=== PATIENT | female | born 1945 | race Caucasian/White ===

== ENCOUNTER → 2016-05-13 | Outpatient (CLI) | payer MEDICARE ==
[2016-05-13 10:50] LABS: APPEARANCE,URINE CLEAR; BILIRUBIN,URINE NEGATIVE (NEGATIVE); GLUCOSE, URINE NEGATIVE (NEGATIVE); KETONES,URINE NEGATIVE (NEGATIVE); LEUKOCYTE ESTERASE,URINE TRACE (NEGATIVE); NITRITE,URINE NEGATIVE (NEGATIVE); PROTEIN,URINE NEGATIVE (NEGATIVE); URINE SPECIFIC GRAVITY 1.018; UROBILINOGEN,URINE NEGATIVE mg/dL (<2.0)
[2016-05-13 11:01] LABS: ABSOLUTE BASOPHILS # (AUTO) 0.1 10^3/uL (0.0-0.2); ABSOLUTE EOSINOPHILS # (AUTO) 0.2 10^3/uL (0.0-0.6); ABSOLUTE LYMPHOCYTES (AUTO) 1.5 10^3/uL (0.5-4.7); ABSOLUTE MONOCYTES (AUTO) 0.6 10^3/uL (0.1-1.4); ABSOLUTE NEUT (AUTO) 4.1 10^3/uL (1.7-8.2); BASOPHILS % (AUTO) 0.8 % (0-2); EOSINOPHILS % (AUTO) 3.5 % (0-6); HEMOGLOBIN 13.1 g/dL (12.0-15.5); HGB HCT DIFFERENCE -0.7; LYMPHOCYTES % (AUTO) 23.4 % (13-45); MEAN CORPUSCULAR HEMOGLOBIN 29.8 pg (27.0-33.4); MEAN CORPUSCULAR HGB CONC 32.7 g/dL (32.0-36.0); MEAN CORPUSCULAR VOLUME 91 fl (80-97); MONOCYTES % (AUTO) 9.6 % (3-13); RED BLOOD COUNT 4.39 10^6/uL (3.72-5.28); RED CELL DISTRIBUTION WIDTH 14.5 % (11.5-14.0); SEGMENTED NEUTROPHILS % (AUTO) 62.7 % (42-78); WHITE BLOOD COUNT 6.6 10^3/uL (4.0-10.5)
[2016-05-13 11:32] LABS: ALANINE AMINOTRANSFERASE 23 U/L (9-52); ALBUMIN 3.8 g/dL (3.5-5.0); ALKALINE PHOSPHATASE 103 U/L (38-126); ANION GAP 11 (5-19); ASPARTATE AMINO TRANSFERASE 20 U/L (14-36); BILIRUBIN,TOTAL 0.6 mg/dL (0.2-1.3); BLOOD UREA NITROGEN 18 mg/dL (7-20); CALCIUM 9.3 mg/dL (8.4-10.2); CARBON DIOXIDE 27 mmol/L (22-30); CHLORIDE 106 mmol/L (98-107); CHOLESTEROL 164.28 mg/dL (0-200); CREATININE RESULT 0.85 mg/dL (0.52-1.25); Direct HDL 48 mg/dL (>40); GLUCOSE 86 mg/dL (75-110); POTASSIUM 4.7 mmol/L (3.6-5.0); SODIUM 143.7 mmol/L (137-145); TOTAL PROTEIN 6.4 g/dL (6.3-8.2); TRIGLYCERIDES 100 mg/dL (<150)
[2016-05-13 11:44] LABS: DIRECT LDL 87 mg/dL (<100)
== END ==
LOC: OD 09:18
DX: I12.9 Hypertensive chronic kidney disease with stage 1 through stage 4 chronic kidney disease, or unspecified chronic kidney disease (principal); N18.3 Chronic kidney disease, stage 3 (moderate); D63.1 Anemia in chronic kidney disease; D50.9 Iron deficiency anemia, unspecified; Z79.899 Other long term (current) drug therapy; M06.9 Rheumatoid arthritis, unspecified
CPT/HCPCS: 36415; 80053; 80061; 81001; 82607; 82728; 82746; 83036; 83540; 83550; 84443; 85025; 85045

== ENCOUNTER → 2016-05-23 | Outpatient (CLI) | payer MEDICARE | LOC: OD 08:55 → EDSTATUS 05-28 14:45 | PROVIDERS: ATTEND Orthopaedic Surgery | DX: Z01.818 Encounter for other preprocedural examination (principal); I51.7 Cardiomegaly; K44.9 Diaphragmatic hernia without obstruction or gangrene | CPT/HCPCS: 71020 ==

== ENCOUNTER → 2016-06-12 | Day surgery (SDC) | payer MEDICARE ==
[~2016-06-12] MED LIST: LIDOCAINE 2% JELLY 5 ML TUBE ONE
== END ==
LOC: END 08:57
PROVIDERS: ATTEND Internal Medicine Gastroenterology
PROC: 4A0B7BZ Measurement of Gastrointestinal Pressure, Via Natural or Artificial Opening (ICD-10-PCS; principal; 2016-06-12)
DX: K44.9 Diaphragmatic hernia without obstruction or gangrene (principal)
CPT/HCPCS: 91010

== ENCOUNTER → 2016-07-02 | Day surgery (SDC) | payer MEDICARE | LOC: END 15:12 | PROVIDERS: ATTEND Internal Medicine Gastroenterology | PROC: 4A0B78Z Measurement of Gastrointestinal Motility, Via Natural or Artificial Opening (ICD-10-PCS; principal; 2016-07-02) | DX: K21.9 Gastro-esophageal reflux disease without esophagitis (principal) | CPT/HCPCS: 91035 ==

== ENCOUNTER → 2016-07-10 | Outpatient (CLI) | payer MEDICARE | LOC: RAD 09:06 | PROVIDERS: ATTEND Surgery | DX: K21.9 Gastro-esophageal reflux disease without esophagitis (principal); K44.9 Diaphragmatic hernia without obstruction or gangrene | CPT/HCPCS: 74220 ==

== ENCOUNTER → 2016-07-17 | Outpatient (CLI) | payer MEDICARE ==
[~2016-07-17] MED LIST changes: +ALBUTEROL SULFATE 0.083% NEB 2.5 MG/3 ML AMPUL NEB ONE; -LIDOCAINE 2% JELLY 5 ML TUBE ONE
--- NOTE | 2016-07-19 11:51 | PULMONARY FUNCTION TEST ---
DATE OF SERVICE: 07/17/2016 THE VITAL CAPACITY IS MODERATELY DECREASED. THE EXPIRATORY FLOW RATES ARE MODERATELY DECREASED. THE FEV1/VC IS 76%, PREDICTED: 81% LUNG VOLUMES BY NITROGEN WASH OUT METHOD SHOW: TLC IS 58% OF PREDICTED FRC IS 64% OF PREDICTED RV IS 65% OF PREDICTED THE DLCO IS 11.8, 60% OF PREDICTED. THE RV/TLC RATIO IS 45% PREDICTED 40% AFTER BRONCHODILATOR, EXPIRATORY FLOW RATES SHOW NO SIGNIFICANT CHANGE. IMPRESSION: THE INSPIRATORY LIMB OF THE F-V LOOP WAS POORLY PERFORMED. THE EXPIRATORY SPIROGRAM WAS ADEQUATE. THERE IS A MODERATE RESTRICTIVE DEFECT. DIFFUSING CAPACITY IS MODERATELY DECREASED. CC: CAROLINA HERNDON MD > SHABANA
== END ==
LOC: RT 13:45
PROVIDERS: ATTEND Surgery
DX: R06.02 Shortness of breath (principal); K44.9 Diaphragmatic hernia without obstruction or gangrene
CPT/HCPCS: 94729 ×2; 94727 ×2; 94060 ×2; A9270

== ENCOUNTER → 2016-07-18 | Outpatient (CLI) | payer MEDICARE ==
--- NOTE | 2016-07-18 19:27 | XCELERA REPORT ---
[address] [address] Transthoracic Echocardiogram Report Name: THADDEUS PILLAI Age: 71 yrs Gender: Female : 1945 Patient Status: Outpatient Patient Location: Study Date: 07/18/2016 01:59 PM Height: 66 in Weight: 148 lb BSA: 1.8 m2 Procedure: A complete two-dimensional transthoracic echocardiogram was performed (2D, M-mode, spectral and color flow Doppler). The study was technically difficult with many images being suboptimal in quality. Reason For Study: PRE OP Ordering Physician: CAROLINA HERNDON Performed By: Mahogany Matos Interpretation Summary Best estimate LV EF is 45% The study was technically difficult with many images being suboptimal in quality. Left ventricular systolic function is mildly reduced. Doppler measurements suggest pseudonormalized left ventricular relaxation, which is associated with grade II/IV or mild to moderate diastolic dysfunction The left ventricle is grossly normal size. [place] not well visualised, but small apical akinesis is suspected There is mild concentric left ventricular hypertrophy. The right ventricular systolic function is normal. The left atrial size is normal. The right atrium is normal in size There is no mitral valve stenosis. There is a mild amount of mitral regurgitation There is a mild amount of aortic regurgitation There is no aortic valve stenosis There is a mild amount of tricuspid regurgitation Right ventricular systolic pressure is at the upper limits of normal The aortic root is not well visualized but is probably normal size. The inferior vena cava was not visualized There is no pericardial effusion. MMode/2D Measurements \T\ Calculations RVDd: 2.7 cm LVIDd: 5.1 cmFS: 18.5 % Ao root diam: 3.5 cm IVSd: 1.2 cm LVIDs: 4.2 cmEDV(Teich): 123.9 ml LVPWd: 1.2 cmESV(Teich): 76.7 ml Ao root area: 9.8 cm2 EF(Teich): 38.0 % LA dimension: 2.8 cm LVOT diam: 2.5 cm LVOT area: 4.9 cm2 Doppler Measurements \T\ Calculations MV E max saleem: MV P1/2t max saleem: Ao V2 max: AI max saleem: 31.2 cm/sec 31.9 cm/sec 103.2 cm/sec 288.8 cm/sec MV A max saleem: MV P1/2t: 55.9 msec Ao max PG: AI max P.1 cm/sec MVA(P1/2t): 3.9 cm2 4.3 mmHg 33.4 mmHg MV E/A: 0.61 MV dec slope: JERALD(V,D): 3.5 cm2 AI dec slope: 167.2 cm/sec2 130.1 cm/sec2 AI P1/2t: 650.4 msec LV V1 max PG: PA V2 max: PI end-d saleem: TR max saleem: 2.1 mmHg 77.5 cm/sec 88.2 cm/sec 251.9 cm/sec LV V1 max: PA max P.4 mmHg TR max P.0 cm/sec 25.4 mmHg Left Ventricle The left ventricle is grossly normal size. There is mild concentric left ventricular hypertrophy. Left ventricular systolic function is mildly reduced. LV EF is 45%. Doppler measurements suggest pseudonormalized left ventricular relaxation, which is associated with grade II/IV or mild to moderate diastolic dysfunction. There is apical wall akinesis. Right Ventricle The right ventricle is grossly normal size. There is normal right ventricular wall thickness. The right ventricular systolic function is normal. Atria The right atrium is normal in size. The left atrial size is normal. Interarterial septum not well visualized and not well dopplered. Cannot comment on ASD/PFO presence. Mitral Valve The mitral valve leaflets are sclerotic and show some degree of functional abnormality. There is no mitral valve stenosis. There is a mild amount of mitral regurgitation. Aortic Valve The aortic valve is not well visualized secondary to technical limitations. There is no aortic valve stenosis. There is a mild amount of aortic regurgitation. Tricuspid Valve The tricuspid valve is not well visualized secondary to technical limitations. There is no tricuspid stenosis. There is a mild amount of tricuspid regurgitation. Right ventricular systolic pressure is at the upper limits of normal. Pulmonic Valve The pulmonic valve is not well visualized. Great Vessels The aortic root is not well visualized but is probably normal size. The inferior vena cava was not visualized. Effusions There is no pericardial effusion. : CAROLINA HERNDON > Aliyah Brooks
== END ==
LOC: SP 13:44
PROVIDERS: ATTEND Surgery
DX: Z01.810 Encounter for preprocedural cardiovascular examination (principal); K44.9 Diaphragmatic hernia without obstruction or gangrene
CPT/HCPCS: 93306

== ENCOUNTER → 2016-07-23 | Outpatient (CLI) | payer MEDICARE ==
[~2016-07-23] MED LIST changes: -ALBUTEROL SULFATE 0.083% NEB 2.5 MG/3 ML AMPUL NEB ONE; +AMINOPHYLLINE INJ/PF 250 MG/10 ML SDV IV ONE; +REGADENOSON INJ 0.4 MG/5 ML DISP.SYRIN IV ONE
--- NOTE | 2016-07-23 11:47 | DRAGON STRESS TEST REPORT ---
INTRAVENOUS LEXISCAN CARDIOLITE STRESS TEST USING SINGLE PHOTON EMMISION COMPUTERIZED TOMOGRAPHIC. DATE OF PROCEDURE: July 23, 2016 INDICATION : Preop clearance, abnormal EKG RESTING EKG: Sinus rhythm, occasional VPCs, nonspecific T-wave inversion in lateral chest leads. STRESS EKG: No significant changes noted with LexiScan bolus REASON FOR TERMINATION: Protocol. PROCEDURE REPORT: Baseline heart rate 73 beats per minute with blood pressure of 169/87. Patient had no significant complaints. Heart rate at 2 minutes post bolus 116 with a blood pressure of 156/87. 3 minutes post bolus heart rate 118 with blood pressure of 164/88. No significant EKG changes were noted. Patient had no significant complaints during the procedure or postprocedure, patient did complain of shortness of breath and nausea. Patient injected with Aminophyllin 75 mg at 3 minutes or later after Lexiscan bolus. CONCLUSIONS: Normal EKG and hemodynamic response to IV LexiScan. NUCLEAR DATA: At rest the patient was given 10.25 millicuries of technetium 99 sestamibi injected intravenously. As per protocol rest gated SPECT images were obtained. Subsequently the patient was given intravenous LexiScan at a dose of 0.4 mg in 5 mL intravenously, followed by flush with normal saline. Subsequently the stress dose of 31.3 millicuries of technetium 99 sestamibi was injected intravenously. As per protocol stress gated images were obtained. NUCLEAR INTERPRETATION: Both raw and processed data were used for interpretation. Visual, qualitative, computer-generated quantitative data was used. There was patchy inhomogeneous myocardial uptake of technetium compound. Motion artifact and soft tissue attenuations were noted. Increased visceral uptake was noted. Decreased uptake noted in inferior wall and also Creole, these are somewhat more decreased in stress images as compared to rest images, consistent with inferior wall and apical ischemia. Cannot rule out an area of underlying scar in the inferior wall and apex of the left ventricle. Quality of imaging was suboptimal. EKG gated imaging showed LV EF at 31 %, with diffuse hypokinesia, rest and stress gated EF similar visually. T. I D. ratio was 1.10. Lung heart ratio noted to be significantly increased at 0.50. No significant extracardiac and abnormal radiotracer activities were noted. RV free wall uptake was noted to be increased. IMPRESSION: Also refer to comments under nuclear interpretation. Also test results needs to be interpreted in the context of pretest probability. 1. Decreased uptake noted in inferior wall and also LV Creole, these are somewhat more decreased in stress images as compared to rest images, consistent with inferior wall and apical ischemia. Cannot rule out an area of underlying scar in the inferior wall and apex of the left ventricle. Quality of imaging was suboptimal. 2. Significantly Increased lung uptake is noted. Consider intrinsic lung disease but could also be related to LV systolic dysfunction/CHF. 3. EKG gated imaging shows left ejection fraction of approximately 31 % with diffuse hypokinesia. 4. Clinical correlation requested as quality of images felt to be suboptimal. In approximately 10% of the cases Lexiscan may not cause adequate vasodilatory stress. RECOMMENDATIONS: Aggressive risk factor modification, medical therapy. Consider heart catheterization/coronary CTA if clinically indicated. Clinical correlation with echocardiogram derived ejection fraction. Inability to exercise by itself can lead to increased cardiovascular event risks. Consider cardiology consultation and or follow-up if clinically indicated. I AM AVAILABLE FOR CARDIOLOGY CONSULTATION AND FOLLOWUP IF REQUESTED BY PMD Aliyah Brooks M.D., YARELIS Gem Expert supervisor refining, Board certified in cardiovascular diseases, Nuclear cardiology, Echocardiography Cardiac CT and cardiac MRI Ph. [phone] [facility] HOSPITALYuli
== END ==
LOC: RAD 06:33
PROVIDERS: ATTEND Surgery
DX: Z01.810 Encounter for preprocedural cardiovascular examination (principal); R94.31 Abnormal electrocardiogram [ECG] [EKG]; K44.9 Diaphragmatic hernia without obstruction or gangrene
CPT/HCPCS: 93017; 78452; A9500; J2785; J0280; Q9969

== ENCOUNTER → 2016-08-02 | Outpatient (CLI) | payer MEDICARE ==
[2016-08-02 13:02] LABS: ABSOLUTE EOSINOPHILS # (AUTO) 0.2 10^3/uL (0.0-0.6); ABSOLUTE LYMPHOCYTES (AUTO) 1.5 10^3/uL (0.5-4.7); ABSOLUTE MONOCYTES (AUTO) 0.6 10^3/uL (0.1-1.4); ABSOLUTE NEUT (AUTO) 4.5 10^3/uL (1.7-8.2); BASOPHILS % (AUTO) 0.7 % (0-2); EOSINOPHILS % (AUTO) 2.8 % (0-6); HEMATOCRIT 40.5 % (36.0-47.0); HEMOGLOBIN 13.3 g/dL (12.0-15.5); HGB HCT DIFFERENCE -0.6; LYMPHOCYTES % (AUTO) 22.2 % (13-45); MEAN CORPUSCULAR HEMOGLOBIN 30.3 pg (27.0-33.4); MEAN CORPUSCULAR HGB CONC 32.8 g/dL (32.0-36.0); MEAN CORPUSCULAR VOLUME 92 fl (80-97); MONOCYTES % (AUTO) 8.3 % (3-13); RED BLOOD COUNT 4.39 10^6/uL (3.72-5.28); RED CELL DISTRIBUTION WIDTH 13.3 % (11.5-14.0); WHITE BLOOD COUNT 6.8 10^3/uL (4.0-10.5)
[2016-08-02 13:12] LABS: PROTHROMBIN TIME 13.9 SEC (11.4-15.4)
[2016-08-02 13:13] LABS: PARTIAL THROMBOPLASTIN TIME 28.1 SEC (23.5-35.8)
[2016-08-02 13:32] LABS: ANION GAP 7 (5-19); BLOOD UREA NITROGEN 21 mg/dL (7-20); CARBON DIOXIDE 29 mmol/L (22-30); CHLORIDE 106 mmol/L (98-107); GLUCOSE 99 mg/dL (75-110); POTASSIUM 4.5 mmol/L (3.6-5.0); SODIUM 142.3 mmol/L (137-145)
== END ==
LOC: OD 11:48
PROVIDERS: ATTEND Internal Medicine
DX: Z01.810 Encounter for preprocedural cardiovascular examination (principal); R94.31 Abnormal electrocardiogram [ECG] [EKG]; I10 Essential (primary) hypertension; M15.9 Polyosteoarthritis, unspecified; N19 Unspecified kidney failure; I35.1 Nonrheumatic aortic (valve) insufficiency; E78.5 Hyperlipidemia, unspecified; Z79.899 Other long term (current) drug therapy
CPT/HCPCS: 36415; 80051; 82565; 82947; 83735; 84520; 85025; 85610; 85730

== ENCOUNTER 2016-10-05 14:40 | Emergency (ER) | payer MEDICARE ==
--- NOTE | 2016-10-05 15:12 | ER Document Report ---
ED GI/ - General Mode of Arrival: Wheelchair Information source: Patient TRAVEL OUTSIDE OF THE [place] IN LAST 30 DAYS: No - HPI Patient complains to provider of: Other - hematemesis Onset: This morning - Refer to HPI Notes Associated symptoms: Coffee ground emesis, Vomiting Similar symptoms previously: No Recently seen / treated by doctor: No <PAGE BURKETT - Last Filed: 10/05/16 15:57> <MARK KHALIL - Last Filed: 10/05/16 22:07> - General Stated Complaint: COUGH Time Seen by Provider: 10/05/16 14:49 Notes: Patient is a 71 year old female presenting to the ED for hematemesis. Patient states her symptoms started this morning around 06:30 and has progressively gotten worse throughout the day. Patient recently had a hiatal hernia repair on 09/30/16 at [facility] in [place]. Patient states she has not had a bowel movement since her surgery until this morning which she states she had a very small bowel movement. Patient has been taking oxycodone every 4 hours since her surgery which could be causing constipation. Patient also complains of feeling woozy when getting up to walk; patient ambulates with a walker. Patient has a history of RA and GERD. [facility] (PAGE BURKETT) - Related Data Allergies/Adverse Reactions: sulfamethoxazole [From Bactrim] Allergy (Verified 10/05/16 16:01) Vomiting trimethoprim [From Bactrim] Allergy (Verified 10/05/16 16:01) Vomiting codeine phosphate [From Tylenol-Codeine] Adverse Reaction (Severe, Verified 16:01) Hallucinations Past Medical History - General Information source: Patient - Social History Smoking Status: Never Smoker Cigarette use (# per day): No Chew tobacco use (# tins/day): No Smoking Education Provided: No Frequency of alcohol use: None Drug Abuse: None Family History: None Patient has suicidal ideation: No Patient has homicidal ideation: No - Past Medical History Cardiac Medical History: Reports: Hx Hypertension - r/t meds taken, not currently taking meds Pulmonary Medical History: Reports: Hx Bronchitis Neurological Medical History: Renal/ Medical History: Reports: Hx End Stage Renal Disease - had been as low as 20% function r/t meds, Hx Ovarian Cysts - 1999 GI Medical History: Reports: Hx Gastroesophageal Reflux Disease Musculoskeltal Medical History: Reports Hx Arthritis, Reports Hx Musculoskeletal Trauma Traumatic Medical History: Reports: Hx Fractures - 2015 left humerus,rt arm 2007 ,ribs fx 2000 Past Surgical History: Reports: Hx Orthopedic Surgery - foot, knee, Lshoulder replacment 05/2015 - Immunizations Hx Diphtheria, Pertussis, Tetanus Vaccination: Yes Hx Pneumococcal Vaccination: 12/09/15 <PAGE BURKETT - Last Filed: 10/05/16 15:57> Review of Systems - Review of Systems Constitutional: No symptoms reported EENT: No symptoms reported Cardiovascular: See HPI, Lightheaded - woozy Respiratory: No symptoms reported Gastrointestinal: See HPI, Other - hematemesis Genitourinary: No symptoms reported Female Genitourinary: No symptoms reported Musculoskeletal: No symptoms reported Skin: No symptoms reported Hematologic/Lymphatic: No symptoms reported Neurological/Psychological: No symptoms reported -: Yes All other systems reviewed and negative <KWADWOPAGE - Last Filed: 10/05/16 15:57> Physical Exam <KWADWOPAGE - Last Filed: 10/05/16 15:57> <MARK KHALIL - Last Filed: 10/05/16 22:07> - Vital signs Vitals: Resp BP Pulse Ox 18 118/81 95 10/05/16 15:24 10/05/16 15:24 10/05/16 15:24 - Notes Notes: GENERAL: Alert, interacts well. Mild distress. HEAD: Normocephalic, atraumatic. EYES: Appear normal. Pupils equal, round, and reactive to light. ENT: Moist mucus membranes, tongue midline. NECK: Full range of motion. Supple. Trachea midline. LUNGS: Clear to auscultation bilaterally, no wheezes, rales, or rhonchi. No respiratory distress. HEART: Regular rate and rhythm. No murmurs, gallops, or rubs. ABDOMEN: Soft, non-tender. Non-distended. Normal bowel sounds. RECTAL: No gross blood, no sign of hemorrhoids, non-tender. EXTREMITIES: Moves all 4 extremities spontaneously. Normal strength. No edema. Radial pulses 2/4 bilaterally. NEUROLOGICAL: Alert and oriented x3. Normal speech. No focal neurological deficits. GSC 15. PSYCH: Normal affect, normal mood. SKIN: Warm, dry, normal turgor. No rashes or lesions noted. (PAGE BURKETT) Course - Laboratory Result Diagrams: 10/05/16 15:15 10/05/16 15:15 <PAGE BURKETT - Last Filed: 10/05/16 15:57> - Laboratory Result Diagrams: 10/05/16 18:38 10/05/16 15:15 - EKG Interpretation by Me EKG shows normal: Sinus rhythm, Joes, Intervals, QRS Complexes, ST-T Waves Rate: Normal - 93 Rhythm: NSR Joes/QRS: Left axis deviation Voltage: Consistant with LVH When compared to previous EKG there are: No significant change - Consults Dr. Arceo Time consulted: 19:25 Consulted provider: other - Will accept in transfer at [facility] <MARK KHALIL - Last Filed: 10/05/16 22:07> - Re-evaluation Re-evalutation: 10/05/16 19:33 The patient's hemoglobin was 13.3 on 08/02/2016, and 12.5 about 3 PM today. A repeat hemoglobin at 6:30 PM was 11.3 (MARK KHALIL) - Vital Signs Vital signs: Temp Pulse Resp BP Pulse Ox 19 141/56 H 94 10/05/16 20:16 10/05/16 20:16 10/05/16 20:16 - Laboratory Laboratory results interpreted by me: 10/05/16 10/05/16 10/05/16 15:15 15:15 18:38 WBC 14.4 H 13.8 H RBC 3.59 L Hgb 11.3 L Hct 34.4 L RDW 14.5 H 14.6 H Seg Neutrophils % 82.4 H 83.0 H Lymphocytes % 8.9 L 8.4 L Absolute Neutrophils 11.9 H 11.5 H Potassium 3.4 L BUN 37 H ALT 70 H Creatine Kinase 22 L Total Protein 5.4 L Albumin 2.8 L Urine Urobilinogen 10/05/16 19:17 WBC RBC Hgb Hct RDW Seg Neutrophils % Lymphocytes % Absolute Neutrophils Potassium BUN ALT Creatine Kinase Total Protein Albumin Urine Urobilinogen 2.0 H Discharge <PAGE BURKETT - Last Filed: 10/05/16 15:57> <MARK KHALIL - Last Filed: 10/05/16 22:07> - Discharge Clinical Impression: Hematemesis/vomiting blood Qualifiers: Nausea presence: unspecified Qualified Code(s): K92.0 - Hematemesis Condition: Stable Disposition: [facility] Referrals: DEXTER JOHNSON MD [Primary Care Provider] - Follow up as needed Scribe Attestation: 10/05/16 22:07 I personally performed the services described in the documentation, reviewed and edited the documentation which was dictated to the scribe in my presence, and it accurately records my words and actions. (MARK KHALIL) Scribe Documentation - Scribe Written by Scribtalib:: Saqib Howell 10/05/16 16:11 acting as scribe for :: Luna <PAGE BURKETT - Last Filed: 10/05/16 15:57>
[2016-10-05 15:32] LABS: ABSOLUTE EOSINOPHILS # (AUTO) 0.2 10^3/uL (0.0-0.6); ABSOLUTE LYMPHOCYTES (AUTO) 1.3 10^3/uL (0.5-4.7); ABSOLUTE NEUT (AUTO) 11.9 10^3/uL (1.7-8.2); BASOPHILS % (AUTO) 0.2 % (0-2); EOSINOPHILS % (AUTO) 1.4 % (0-6); HEMATOCRIT 37.7 % (36.0-47.0); HEMOGLOBIN 12.5 g/dL (12.0-15.5); HGB HCT DIFFERENCE -0.2; LYMPHOCYTES % (AUTO) 8.9 % (13-45); MEAN CORPUSCULAR HEMOGLOBIN 31.7 pg (27.0-33.4); MEAN CORPUSCULAR HGB CONC 33.2 g/dL (32.0-36.0); MEAN CORPUSCULAR VOLUME 96 fl (80-97); MONOCYTES % (AUTO) 7.1 % (3-13); RED BLOOD COUNT 3.94 10^6/uL (3.72-5.28); RED CELL DISTRIBUTION WIDTH 14.5 % (11.5-14.0); SEGMENTED NEUTROPHILS % (AUTO) 82.4 % (42-78); WHITE BLOOD COUNT 14.4 10^3/uL (4.0-10.5)
[2016-10-05 15:47] LABS: ALANINE AMINOTRANSFERASE 70 U/L (9-52); ALBUMIN 2.8 g/dL (3.5-5.0); ALKALINE PHOSPHATASE 68 U/L (38-126); ANION GAP 7 (5-19); ASPARTATE AMINO TRANSFERASE 17 U/L (14-36); BILIRUBIN,DIRECT 0.2 mg/dL (0.0-0.4); BILIRUBIN,TOTAL 0.6 mg/dL (0.2-1.3); BLOOD UREA NITROGEN 37 mg/dL (7-20); CALCIUM 8.4 mg/dL (8.4-10.2); CARBON DIOXIDE 29 mmol/L (22-30); CHLORIDE 107 mmol/L (98-107); CREATINE KINASE 22 U/L (30-135); CREATININE RESULT 0.88 mg/dL (0.52-1.25); GLUCOSE 100 mg/dL (75-110); LIPASE 177.1 U/L (23-300); POTASSIUM 3.4 mmol/L (3.6-5.0); SODIUM 143.1 mmol/L (137-145); TOTAL PROTEIN 5.4 g/dL (6.3-8.2)
[2016-10-05 15:57] LABS: CREATINE KINASE MB 1.57 ng/mL (<4.55)
[2016-10-05 15:58] LABS: TROPONIN I < 0.012 ng/mL
[2016-10-05] MEDS ORDERED: NORMAL SALINE 1000 ML 1,000 ML IV ONE (16:43)
[2016-10-05 18:56] LABS: ABSOLUTE EOSINOPHILS # (AUTO) 0.2 10^3/uL (0.0-0.6); ABSOLUTE LYMPHOCYTES (AUTO) 1.2 10^3/uL (0.5-4.7); ABSOLUTE NEUT (AUTO) 11.5 10^3/uL (1.7-8.2); BASOPHILS % (AUTO) 0.2 % (0-2); EOSINOPHILS % (AUTO) 1.5 % (0-6); HEMATOCRIT 34.4 % (36.0-47.0); HEMOGLOBIN 11.3 g/dL (12.0-15.5); HGB HCT DIFFERENCE -0.5; LYMPHOCYTES % (AUTO) 8.4 % (13-45); MEAN CORPUSCULAR HEMOGLOBIN 31.4 pg (27.0-33.4); MEAN CORPUSCULAR HGB CONC 32.8 g/dL (32.0-36.0); MEAN CORPUSCULAR VOLUME 96 fl (80-97); MONOCYTES % (AUTO) 6.9 % (3-13); RED BLOOD COUNT 3.59 10^6/uL (3.72-5.28); RED CELL DISTRIBUTION WIDTH 14.6 % (11.5-14.0); WHITE BLOOD COUNT 13.8 10^3/uL (4.0-10.5)
[2016-10-05 19:51] LABS: APPEARANCE,URINE CLEAR; BILIRUBIN,URINE NEGATIVE (NEGATIVE); GLUCOSE, URINE NEGATIVE (NEGATIVE); KETONES,URINE NEGATIVE (NEGATIVE); LEUKOCYTE ESTERASE,URINE NEGATIVE (NEGATIVE); NITRITE,URINE NEGATIVE (NEGATIVE); PROTEIN,URINE NEGATIVE (NEGATIVE)
[2016-10-05 20:16] VITALS: BP 141/56
--- NOTE | 2016-10-06 11:14 | EKG REPORT ---
SEVERITY:- ABNORMAL ECG - SINUS RHYTHM LEFT AXIS DEVIATION LEFT VENTRICULAR HYPERTROPHY : Confirmed by: Jesica Salter MD 06-Oct-2016 11:13:41
== END 2016-10-05 20:19 | disposition short-term general hospital (02) ==
LOC: ER 14:40
DX: K92.0 Hematemesis (principal); R05 Cough; Z79.899 Other long term (current) drug therapy
CPT/HCPCS: 93005; 99285; 86900; 86901; 36415; 82553; 86850; 82550; 83690; 85025; 82272; 80053; 81001; 84484; 93010; J7030

== ENCOUNTER → 2017-03-31 | Outpatient (CLI) | payer MEDICARE ==
[2017-03-31 13:13] LABS: APPEARANCE,URINE CLEAR; BILIRUBIN,URINE NEGATIVE (NEGATIVE); COLOR,URINE YELLOW; GLUCOSE, URINE NEGATIVE (NEGATIVE); KETONES,URINE NEGATIVE (NEGATIVE); LEUKOCYTE ESTERASE,URINE MODERATE (NEGATIVE); NITRITE,URINE NEGATIVE (NEGATIVE); PROTEIN,URINE NEGATIVE (NEGATIVE); URINE SPECIFIC GRAVITY 1.023; UROBILINOGEN,URINE NEGATIVE mg/dL (<2.0)
[2017-03-31 13:17] LABS: ABSOLUTE EOSINOPHILS # (AUTO) 0.1 10^3/uL (0.0-0.6); ABSOLUTE MONOCYTES (AUTO) 0.5 10^3/uL (0.1-1.4); ABSOLUTE NEUT (AUTO) 9.8 10^3/uL (1.7-8.2); BASOPHILS % (AUTO) 0.4 % (0-2); HEMATOCRIT 42.7 % (36.0-47.0); LYMPHOCYTES % (AUTO) 8.8 % (13-45); MEAN CORPUSCULAR HEMOGLOBIN 30.1 pg (27.0-33.4); MEAN CORPUSCULAR HGB CONC 32.9 g/dL (32.0-36.0); MEAN CORPUSCULAR VOLUME 92 fl (80-97); MONOCYTES % (AUTO) 4.7 % (3-13); PLATELET COUNT 210 10^3/uL (150-450); RED BLOOD COUNT 4.66 10^6/uL (3.72-5.28); RED CELL DISTRIBUTION WIDTH 14.8 % (11.5-14.0); SEGMENTED NEUTROPHILS % (AUTO) 85.1 % (42-78); TOTAL CELLS COUNTED % (AUTO) 100 %; WHITE BLOOD COUNT 11.5 10^3/uL (4.0-10.5)
[2017-03-31 13:42] LABS: ANION GAP 6 (5-19); BLOOD UREA NITROGEN 24 mg/dL (7-20); CALCIUM 9.6 mg/dL (8.4-10.2); CARBON DIOXIDE 29 mmol/L (22-30); CHLORIDE 107 mmol/L (98-107); GLUCOSE 86 mg/dL (75-110); POTASSIUM 4.6 mmol/L (3.6-5.0); SODIUM 141.7 mmol/L (137-145)
--- NOTE | 2017-03-31 14:45 | RADIOLOGY REPORT (SQ) ---
EXAM DESCRIPTION: CHEST PA/LATERAL COMPLETED DATE/TIME: 03/31/2017 1:02 pm REASON FOR STUDY: PRE-OP COMPARISON: Chest films 04/21/2015, 10/15/2015, 05/23/2016 EXAM PARAMETERS: NUMBER OF VIEWS: two views TECHNIQUE: Digital Frontal and Lateral radiographic views of the chest acquired. RADIATION DOSE: NA LIMITATIONS: none FINDINGS: LUNGS AND PLEURA: No opacities, masses or pneumothorax. No pleural effusion. MEDIASTINUM AND HILAR STRUCTURES: No masses or contour abnormalities. HEART AND VASCULAR STRUCTURES: Heart normal size. No evidence for failure. BONES: Osteopenic. Old healed right rib fractures. Left shoulder replacement HARDWARE: Surgical clips and prosthesis at the GE junction OTHER: No other significant finding. IMPRESSION: NO SIGNIFICANT RADIOGRAPHIC FINDING IN THE CHEST. TECHNICAL DOCUMENTATION: JOB ID: [id number] [employer]- All Rights Reserved
--- NOTE | 2017-03-31 23:32 | EKG REPORT ---
SEVERITY:- ABNORMAL ECG - SINUS RHYTHM LOW VOLTAGE IN FRONTAL LEADS PROBABLE LVH WITH SECONDARY REPOL ABNRM ABNORMAL T, PROBABLE ISCHEMIA, ANT-LAT LEADS : Confirmed by: Aliyah Brooks 31-Mar-2017 23:31:55
== END ==
LOC: OD 11:56
PROVIDERS: ATTEND Orthopaedic Surgery
DX: Z01.818 Encounter for other preprocedural examination (principal); N39.0 Urinary tract infection, site not specified
CPT/HCPCS: 36415; 71046; 80048; 81001; 85025; 87086; 93005; 93010

== ENCOUNTER 2017-04-24 05:32 | Inpatient (IN) | payer MEDICARE ==
[~2017-04-24 05:32] MED LIST changes: -AMINOPHYLLINE INJ/PF 250 MG/10 ML SDV IV ONE; +CEFAZOLIN 2 GM/D5W RTU 2 GM/50 ML RTUPB IV PRN; +LACTATED RINGERS 1000 ML IV PRN; +LIDOCAINE 0.5% INJ-PF (5 MG/ML) 50 ML SDV SUBCUT PRN; -REGADENOSON INJ 0.4 MG/5 ML DISP.SYRIN IV ONE
[2017-04-24] MEDS ORDERED: THROMBIN (BOVINE) 5000 UNIT EPITAXIS KIT ONE (06:53)
[2017-04-24] MEDS ORDERED: BUPIVACAINE INJ/PF LIPOSOME/PF 266 MG/20 ML SDV ONE (06:53)
[2017-04-24] MEDS ORDERED: THROMBIN (BOVINE) TOPICAL 20000 UNIT VIAL ONE (06:53)
[2017-04-24] MEDS ORDERED: DEXAMETHASONE SOD PHOSPHATE INJ 4 MG/1 ML VIAL ONE (07:22)
[2017-04-24] MEDS ORDERED: ONDANSETRON HCL INJ/PF 4 MG/2 ML SDV ONE (07:22)
[2017-04-24] MEDS ORDERED: MIDAZOLAM 2 MG/2 ML INJ ONE (07:22)
[2017-04-24] MEDS ORDERED: FENTANYL CITRATE INJ/PF 100 MCG/2 ML AMPUL ONE ×2 (07:22→10:53)
[2017-04-24] MEDS ORDERED: KETAMINE HCL INJ 500 MG/10 ML VIAL ONE (07:22)
[2017-04-24] MEDS ORDERED: PROPOFOL INJ 200 MG/20 ML VIAL IV ONE (07:22)
[2017-04-24] MEDS ORDERED: EPHEDRINE SULFATE INJ 50 MG/1 ML AMPULE ONE (07:23)
[2017-04-24] MEDS ORDERED: TRANEXAMIC ACID INJ/PF 1,000 MG/10 ML SDV IV ONE ×2 (07:23→11:00)
[2017-04-24] MEDS ORDERED: IBUPROFEN 800 MG in NORMAL SALINE 250 ML IV PRN (07:37)
[2017-04-24] MEDS ORDERED: LANSOPRAZOLE 15 MG TAB.RAP.DR PO PRN (08:08)
[2017-04-24] MEDS ORDERED: FENTANYL CITRATE INJ/PF 100 MCG/2 ML AMPUL IV PRN ×3 (09:32)
[2017-04-24] MEDS ORDERED: MEPERIDINE HCL/PF INJ 25 MG/1 ML DISP.SYRIN IV PRN (09:32)
[2017-04-24] MEDS ORDERED: DIPHENHYDRAMINE HCL 50 MG/ML VIAL IV PRN (09:32)
[2017-04-24] MEDS ORDERED: PROMETHAZINE HCL INJ 25 MG/1 ML VIAL IV PRN ×2 (09:32)
[2017-04-24] MEDS ORDERED: RINGERS SOLUTION,LACTATED 1,000 ML IV PRN (10:36)
[2017-04-24] MEDS ORDERED: ACETAMINOPHEN 325 MG TABLET PO PRN (10:36)
--- NOTE | 2017-04-24 10:36 | Operative Report ---
Operative Report DATE OF SURGERY: 04/24/17 PREOPERATIVE DIAGNOSIS: Left knee osteoarthritis POSTOPERATIVE DIAGNOSIS: Same OPERATION: Left total knee arthroplasty SURGEON: SINGH HOLLIS ANESTHESIA: GA TISSUE REMOVED OR ALTERED: None COMPLICATIONS: None ESTIMATED BLOOD LOSS: 50mL INTRAOPERATIVE FINDINGS: As above PROCEDURE: Patient received preoperative antibiotics in the holding area and then was transferred to the OR where she was induced and intubated in supine position. A thigh tourniquet was applied to the left lower extremity. Timeout was done identifying the left knee is a correct site after prepping and draping the left lower extremity. Esmarch was used to exsanguinate the extremity and the tourniquet was inflated at 300 mmHg. The extremity was placed in the leg lincoln and a midline incision was done over the left knee. Then a standard medial parapatellar approach was done to the knee exposing the knee. The patella was everted and I proceeded then to do a medial release. I then proceeded to remove portions of the medial lateral meniscus and then flexed the knee and dislocated knee. I used a drill to prepare my hole and then placed my intramedullary guide and the tibia. I placed a guide and then pinned it after making sure I was taking to off of the lateral compartment which was the worn side. I did my distal tibial cut and was satisfied. This was removed and then I proceeded to do my distal femoral cut by drilling and placing intramedullary the guide and pinning the cutting guide. I took 8 mm off of the femur. I then proceeded to size it to be a 6 and then pinned it with the epicondyle axis. I placed the #6 4-in-1 cutting guide and then proceeded to do my cuts. I then used a box storage worker and did my box cut. I sized the femur and placed a soft a 6 tray with a 9 mm spacer and did a quick trial showing good extension and stable to varus and valgus. I removed the trial components and proceeded to do my patellar cut and using the guide I was able to remove 10 mm. I drilled the peg holes and then prepared the tibial side for implantation using the keel punch. After copious irrigation with pulsatile lavage and then proceeded to cement the components then first during my tibial tray followed by the femoral component and finally the patella button. I placed a 9 mm trial spacer in between and kept the knee in extension. Once the excess cement was removed and the cement had hardened I then proceeded to use Exparel to inject in the soft tissue. I at this point proceeded to close my capsule using #1 Vicryl and the port thrombin into the joint. I then used a intercept to clean the wound. My teacher's assistant then proceeded to close the wound with 0 Vicryl and then I did a 4-0 subcuticular Monocryl stitch. Steri-Strips and Dermabond was applied and then covered with an OpSite dressing. Tourniquet was let down and then the patient was undraped and extubated and sent to PACU in a stable condition.
--- NOTE | 2017-04-24 11:27 | RADIOLOGY REPORT (SQ) ---
EXAM DESCRIPTION: KNEE LEFT 2 VIEWS COMPLETED DATE/TIME: 04/24/2017 11:20 am REASON FOR STUDY: LEFT TOTAL KNEE ARTHROPLASTY M17.12 UNILATERAL PRIMARY OSTEOARTHRITIS, LEFT KNEE COMPARISON: None. NUMBER OF VIEWS: 2 view(s). TECHNIQUE: Digital radiographic images of the left knee post-procedure. LIMITATIONS: None. FINDINGS: BONES: No worrisome or unexpected findings post-procedure. DEVICE: Patient is status post left total knee replacement. The prosthesis appears well seated in th e distal femur and proximal tibia in the projections obtained SOFT TISSUES: No worrisome findings. Expected postoperative soft tissue changes. IMPRESSION: SATISFACTORY POSTOPERATIVE LEFT KNEE. TECHNICAL DOCUMENTATION: JOB ID: [id number] [employer]- All Rights Reserved
[2017-04-24] MEDS: CEFAZOLIN 2 GM/D5W RTU 2 GM/50 ML RTUPB IV SCH ×3 (13:12→23:28)
[2017-04-24] MEDS: ONDANSETRON HCL INJ/PF 4 MG/2 ML SDV IV PRN ×2 (15:29→23:30)
[2017-04-24] MEDS ORDERED: OXYCODONE HCL IR 5 MG TABLET PO PRN (17:01)
[2017-04-24] MEDS: OXYCODONE HCL IR 5 MG TABLET PO PRN ×2 (17:17→21:29)
[2017-04-24] MEDS: SUCRALFATE SUSP 1 GM/10 ML UDCUP PO SCH (21:29)
[2017-04-24] MEDS: RIVAROXABAN 10 MG TABLET PO SCH (21:29)
[2017-04-24] MEDS: METOCLOPRAMIDE HCL ORAL SOLN 10 MG/10 ML UDCUP PO SCH (21:31)
[2017-04-24] MEDS ORDERED: VANCOMYCIN HCL 1,000 MG in DEXTROSE 5%-WATER 250 ML IV ONE (22:36)
[2017-04-24] MEDS ORDERED: HYDROMORPHONE HCL INJ/PF 2 MG/ML AMPULE ONE (23:23)
[2017-04-25] MEDS: OXYCODONE HCL IR 5 MG TABLET PO PRN ×4 (04:48→19:59)
[2017-04-25] MEDS: LANSOPRAZOLE 15 MG TAB.RAP.DR PO SCH (05:16)
[2017-04-25] MEDS: CEFAZOLIN 2 GM/D5W RTU 2 GM/50 ML RTUPB IV SCH ×4 (05:16→23:21)
[2017-04-25 06:26] LABS: HEMATOCRIT 33.4 % (36.0-47.0); MEAN CORPUSCULAR HEMOGLOBIN 30.4 pg (27.0-33.4); MEAN CORPUSCULAR HGB CONC 32.9 g/dL (32.0-36.0); MEAN CORPUSCULAR VOLUME 92 fl (80-97); PLATELET COUNT 142 10^3/uL (150-450); RED BLOOD COUNT 3.62 10^6/uL (3.72-5.28); WHITE BLOOD COUNT 13.7 10^3/uL (4.0-10.5)
[2017-04-25 06:42] LABS: ANION GAP 8 (5-19); BLOOD UREA NITROGEN 21 mg/dL (7-20); CALCIUM 8.9 mg/dL (8.4-10.2); CARBON DIOXIDE 26 mmol/L (22-30); CHLORIDE 107 mmol/L (98-107); GLUCOSE 109 mg/dL (75-110); POTASSIUM 4.2 mmol/L (3.6-5.0); SODIUM 140.7 mmol/L (137-145)
[2017-04-25] MEDS: HYDROMORPHONE HCL INJ/PF 2 MG/ML AMPULE IV PRN ×2 (07:25→15:10)
[2017-04-25] MEDS: SUCRALFATE SUSP 1 GM/10 ML UDCUP PO SCH ×4 (07:25→23:19)
[2017-04-25] MEDS: METOCLOPRAMIDE HCL ORAL SOLN 10 MG/10 ML UDCUP PO SCH ×4 (07:25→23:19)
[2017-04-25] MEDS: ONDANSETRON HCL INJ/PF 4 MG/2 ML SDV IV PRN ×2 (07:26→15:15)
[2017-04-25] MEDS: METOPROLOL SUCCINATE 25 MG TAB.SR.24H PO SCH (09:17)
[2017-04-25] MEDS: PREDNISONE 5 MG TABLET PO SCH (09:17)
[2017-04-25] MEDS: PRENATAL VITAMIN W DHA CAPSULE PO SCH (09:17)
--- NOTE | 2017-04-25 15:45 | PDOC PROGRESS REPORT ---
Subjective Progress Note for:: 04/25/17 Subjective:: Patient complaining of nausea and pain 5 out of 5 of her left knee status post left total knee arthroplasty. Reason For Visit: STATUS POST LEFT TOTAL KNEE ARTHROPLASTY Physical Exam Vital Signs: Temp Pulse Resp BP Pulse Ox 36.7 C 107 H 16 110/61 93 04/25/17 11:37 04/25/17 11:37 04/25/17 11:37 04/25/17 11:37 04/25/17 11:37 Intake & Output 04/24/17 04/25/17 04/26/17 06:59 06:59 06:59 Intake Total 0 3298 Output Total 1930 Balance 0 1368 Weight 78.5 kg Adult Front & Back Image: 1 - Dressing is dry clean and intact. Ecchymosis and swelling present. Soft cast with no tenderness. Vascular intact distally. Results Laboratory Results: 04/25/17 05:08 04/25/17 05:08 04/25/17 04/25/17 05:08 05:08 WBC 13.7 H RBC 3.62 L Hgb 11.0 L Hct 33.4 L MCV 92 MCH 30.4 MCHC 32.9 RDW 14.0 Plt Count 142 L Sodium 140.7 Potassium 4.2 Chloride 107 Carbon Dioxide 26 Anion Gap 8 BUN 21 H Creatinine 0.91 Est GFR ( Amer) > 60 Est GFR (Non-Af Amer) > 60 Glucose 109 Calcium 8.9 Impressions: Knee X-Ray 04/24/17 00:00 IMPRESSION: SATISFACTORY POSTOPERATIVE LEFT KNEE. Status: Image reviewed by me Assessment & Plan - Plan Summary Plan Summary: 71-year-old female postop day 1 from left total knee arthroplasty. Patient requires assistance in the minimal with physical therapy. Requiring IV narcotics to control her pain. Patient will most likely require rehab placement and will stay over the weekend. We will try to wean off of the IV narcotics in the next couple days. Continue physical therapy and DVT prophylaxis
[2017-04-25] MEDS: RIVAROXABAN 10 MG TABLET PO SCH (23:20)
[2017-04-26] MEDS: OXYCODONE HCL IR 5 MG TABLET PO PRN ×5 (00:22→22:08)
[2017-04-26] MEDS: LANSOPRAZOLE 15 MG TAB.RAP.DR PO SCH (05:21)
[2017-04-26] MEDS: CEFAZOLIN 2 GM/D5W RTU 2 GM/50 ML RTUPB IV SCH ×4 (05:21→23:22)
[2017-04-26] MEDS: SUCRALFATE SUSP 1 GM/10 ML UDCUP PO SCH ×4 (08:12→22:08)
[2017-04-26] MEDS: METOCLOPRAMIDE HCL ORAL SOLN 10 MG/10 ML UDCUP PO SCH ×4 (08:12→22:08)
[2017-04-26 08:16] LABS: HEMATOCRIT 30.6 % (36.0-47.0); MEAN CORPUSCULAR HEMOGLOBIN 30.4 pg (27.0-33.4); MEAN CORPUSCULAR HGB CONC 32.8 g/dL (32.0-36.0); MEAN CORPUSCULAR VOLUME 93 fl (80-97); PLATELET COUNT 122 10^3/uL (150-450); RED CELL DISTRIBUTION WIDTH 13.9 % (11.5-14.0); WHITE BLOOD COUNT 16.5 10^3/uL (4.0-10.5)
[2017-04-26] MEDS: PREDNISONE 5 MG TABLET PO SCH (10:00)
[2017-04-26] MEDS: METOPROLOL SUCCINATE 25 MG TAB.SR.24H PO SCH (10:00)
[2017-04-26] MEDS: PRENATAL VITAMIN W DHA CAPSULE PO SCH (10:00)
[2017-04-26] MEDS: HYDROMORPHONE HCL INJ/PF 2 MG/ML AMPULE IV PRN (12:10)
[2017-04-26] MEDS: ONDANSETRON HCL INJ/PF 4 MG/2 ML SDV IV PRN (12:13)
[2017-04-26 13:43] LABS: CREATINE KINASE MB 2.28 ng/mL (<4.55); TROPONIN I 0.016 ng/mL
--- NOTE | 2017-04-26 14:41 | PDOC PROGRESS REPORT ---
Subjective Progress Note for:: 04/26/17 Subjective:: Patient currently lying in bed comfortably. She states the pain in her knee is improved after Dilaudid but was having complaints of chest pain. She does have history of previous hiatal hernia and is not sure if this is similar discomfort. It has subsided after Dilaudid. Denies shortness of breath. Reason For Visit: STATUS POST LEFT TOTAL KNEE ARTHROPLASTY Physical Exam Vital Signs: Temp Pulse Resp BP Pulse Ox 98.4 F 96 16 118/59 L 94 04/26/17 11:28 04/26/17 11:28 04/26/17 11:28 04/26/17 11:28 04/26/17 11:28 Intake & Output 04/25/17 04/26/17 04/27/17 06:59 06:59 06:59 Intake Total 3298 991 Output Total 1930 700 Balance 1368 291 Weight 78.5 kg Musculoskeletal exam: PRESENT: other - Left knee: Dressing clean/dry/intact no erythema or drainage. No calf tenderness. Intact plantar flexion/dorsiflexion. Results Laboratory Results: 04/26/17 05:46 04/25/17 05:08 04/26/17 05:46 WBC 16.5 H RBC 3.30 L Hgb 10.0 L Hct 30.6 L MCV 93 MCH 30.4 MCHC 32.8 RDW 13.9 Plt Count 122 L 04/26/17 04/26/17 13:02 13:02 Creatine Kinase 68 CK-MB (CK-2) 2.28 Troponin I 0.016 Impressions: Knee X-Ray 04/24/17 00:00 IMPRESSION: SATISFACTORY POSTOPERATIVE LEFT KNEE. Assessment & Plan - Diagnosis (1) History of total left knee replacement Is this a current diagnosis for this admission?: Yes Plan: Status post left total knee arthroplasty. #1 physical therapy #2 pain control #3 Xarelto for DVT prophylaxis #4 [facility] #5 new onset chest pain. I have recommended consultation to the hospitalist for further evaluation patients chest pain to ensure troponins and EKG have been ordered. It is not cardiac in etiology appreciate hospitalist consultation.
--- NOTE | 2017-04-26 19:21 | PDOC H&P ---
History of Present Illness Admission Date/PCP: 04/24/17 05:32 DAYANA RICE, This is a 71 year old woman with osteoarthritis and RA who was admitted for elective left knee replacement. She has been recovering slowly and then developed some right sided chest pressure this afternoon that resolved with opioid pain med for the knee pain. No pain recurrence. There was no radiation of the pain, no associated shortness of breath, no abd pain or nausea or dyspepsia, no anxiety. She has never had pressure like this before, does not think she has had an PA in the past. She now feels back to normal. History of Present Illness: THADDEUS PILLAI is a 71 year old female Past Medical History Past Medical History: In addition to those things marked below patient has a history of urinary tract infection, mild COPD Cardiac Medical History: Reports: Hypertension - r/t meds taken, not currently taking meds Denies: Atrial Fibrillation, Congestive Heart Failure, Coronary Artery Disease, Myocardial Infarction, Hyperlipidema, Peripheral Vascular Disease, Pulmonary Embolism, Heart Murmur Pulmonary Medical History: Denies: Asthma, Chronic Obstructive Pulmonary Disease (COPD), Pneumonia, Respiratory Failure, Sleep Apnea, Tuberculosis Neurological Medical History: Renal/ Medical History: Denies: End Stage Renal Disease - had been as low as 20% function r/t meds Malignancy Medical History: Denies: Breast Cancer, Cervical Cancer, Leukemia, Lung Cancer, Ovarian Cancer GI Medical History: Reports: Hiatal Hernia Denies: Crohn's Disease, Gastroesophageal Reflux Disease Musculoskeltal Medical History: Reports: Arthritis, Other - Rheumatoid arthritis and osteoarthritis Denies: Fibromyalgia Psychiatric Medical History: Denies: Alcohol Dependency, Tobacco Dependency Hematology: Reports: Anemia - iron infusion 05/24/15 Denies: Hemophilia, Sickle Cell Disease Infectious Medical History: Denies: HIV Past Surgical History Past Surgical History: In 2017 patient had a left shoulder fracture repair, in 2017 she had a large hiatal hernia repair Past Surgical History: Reports: Herniorrhaphy, Orthopedic Surgery - foot, knee, Lshoulder replacment 05/2015 Denies: Amputation, Appendectomy, Section, Cholecystectomy, Colostomy, Coronary Artery Bypass Graft, Gastric Bypass Surgery, Hysterectomy, Mastectomy, Pacemaker, Tonsillectomy, Tubal Ligation Social History Information Source: Patient Occupation: retired, she used to be a corporation secretary Lives with: Alone Smoking Status: Never Smoker Frequency of Alcohol Use: Rare Hx Recreational Drug Use: No Drugs: None Hx Prescription Drug Abuse: No - Advance Directive Resuscitation Status: Full Code Family History Family History: None, Other - Father with congestive heart failure in his 70s, her daughter had congestive heart failure Parental Family History Reviewed: Yes Children Family History Reviewed: Yes Sibling(s) Family History Reviewed.: Yes Medication/Allergy Home Medications: Abatacept [Orencia Clickject] 125 mg [id number] 04/24/17 Metoclopramide HCl [Reglan Oral Soln 10 mg/10 ml Udcup] 10 mg PO ACHS 04/24/17 Metoprolol Succinate [Toprol Xl 25 mg Tab.sr] 25 mg PO DAILY 04/24/17 Prednisone [Deltasone 5 mg Tablet] 5 mg PO DAILY 04/24/17 Sucralfate [Carafate Susp 1 Gm/10 Ml Udcup] 1 gm PO [facility] 04/24/17 Tramadol HCl [Ultram 50 mg Tablet] 50 mg PO Q6HP PRN 04/24/17 Allergies/Adverse Reactions: sulfamethoxazole [From Bactrim] Allergy (Verified 10/05/16 16:01) Vomiting trimethoprim [From Bactrim] Allergy (Verified 10/05/16 16:01) Vomiting codeine phosphate [From Tylenol-Codeine] Adverse Reaction (Severe, Verified 16:01) Hallucinations Review of Systems Constitutional: ABSENT: chills, fever(s) Eyes: ABSENT: visual disturbances Ears: ABSENT: hearing changes Nose, Mouth, and Throat: ABSENT: headache(s) Cardiovascular: ABSENT: chest pain Respiratory: ABSENT: cough, dyspnea, sputum Gastrointestinal: PRESENT: constipation. ABSENT: abdominal pain, diarrhea, nausea, vomiting Genitourinary: ABSENT: dysuria Musculoskeletal: PRESENT: other - Post left knee placement Integumentary: PRESENT: wounds Neurological: ABSENT: frequent falls, numbness, paresthesias Psychiatric: ABSENT: anxiety, depression Endocrine: ABSENT: cold intolerance, heat intolerance Hematologic/Lymphatic: ABSENT: easy bleeding, easy bruising Physical Exam Vital Signs: Temp Pulse Resp BP Pulse Ox 98.2 F 94 12 105/67 93 04/26/17 15:33 04/26/17 15:33 04/26/17 15:33 04/26/17 15:33 04/26/17 15:33 Intake & Output 04/25/17 04/26/17 04/27/17 06:59 06:59 06:59 Intake Total 3298 991 427 Output Total 1930 700 Balance 1368 291 427 Weight 78.5 kg General appearance: PRESENT: no acute distress, cooperative Head exam: PRESENT: atraumatic, normocephalic Eye exam: PRESENT: conjunctiva pink, EOMI Ear exam: PRESENT: normal external ear exam Mouth exam: PRESENT: moist - Neck stiff secondary to what sounds like degenerative disc disease Neck exam: ABSENT: lymphadenopathy Respiratory exam: PRESENT: clear to auscultation lobito. ABSENT: rales, rhonchi, wheezes Pulses: PRESENT: normal radial pulses Vascular exam: PRESENT: normal capillary refill GI/Abdominal exam: PRESENT: normal bowel sounds. ABSENT: distended, guarding, tenderness Rectal exam: ABSENT: deferred Extremities exam: PRESENT: joint swelling - Left knee swollen postop Musculoskeletal exam: PRESENT: normal inspection - With the exception of left knee secondary to postoperative status Neurological exam: PRESENT: alert, awake, oriented to person, oriented to place , oriented to situation, CN II-XII grossly intact Psychiatric exam: PRESENT: appropriate affect. ABSENT: anxious Skin exam: PRESENT: dry, warm - Ecchymosis around the left knee Results Laboratory Results: 04/26/17 05:46 04/25/17 05:08 04/26/17 05:46 WBC 16.5 H RBC 3.30 L Hgb 10.0 L Hct 30.6 L MCV 93 MCH 30.4 MCHC 32.8 RDW 13.9 Plt Count 122 L 04/26/17 04/26/17 13:02 13:02 Creatine Kinase 68 CK-MB (CK-2) 2.28 Troponin I 0.016 Impressions: Knee X-Ray 04/24/17 00:00 IMPRESSION: SATISFACTORY POSTOPERATIVE LEFT KNEE. Assessment & Plan - Diagnosis (1) Chest discomfort Is this a current diagnosis for this admission?: Yes Plan: Patient's chest discomfort has resolved. There was not a pleuritic component. There is no tenderness to palpation over the chest. There is no radiation of the pain. It resolved with pain meds that she used for her left knee pain. First troponin is negative. EKG is not concerning for an acute coronary syndrome. We will continue to trend troponins 3 and will reevaluate her tomorrow. Patient has GERD and this could have been related to reflux. She does not seem to have significant anxiety so I do not think it is related to that. I think there is also the possibility that this is a musculoskeletal pain related to bedbound status postop, difficult positioning in bed, multifactorial joint pathology. (2) History of total left knee replacement Is this a current diagnosis for this admission?: Yes Plan: Care per orthopedic surgery (3) GERD (gastroesophageal reflux disease) Is this a current diagnosis for this admission?: Yes Plan: Continue her PPI and monitor symptoms. (4) Rheumatoid arthritis Is this a current diagnosis for this admission?: Yes Plan: Continue her chronic prednisone. (5) Hypertension Is this a current diagnosis for this admission?: Yes Plan: Continue metoprolol. - Time Time Spent: 50 to 70 Minutes Medications reviewed and adjusted accordingly: Yes Within: within 72 hours - Inpatient Certification Based on my medical assessment, after consideration of the patient's comorbidities, presenting symptoms, or acuity I expect that the services needed warrant INPATIENT care.: Yes I certify that my determination is in accordance with my understanding of Medicare's requirements for reasonable and necessary INPATIENT services [42 CFR 412.3e].: Yes Medical Necessity: Significant Comorbidiites Make Outpatient Treatment Too Risky , Need Close Monitoring Due to Risk of Patient Decompensation, Need For Continuous Telemetry Monitoring, Risk of Complication if Not Cared For in Hospital
[2017-04-26 20:28] LABS: CREATINE KINASE MB 1.85 ng/mL (<4.55); TROPONIN I 0.014 ng/mL
[2017-04-26] MEDS: RIVAROXABAN 10 MG TABLET PO SCH (22:08)
--- NOTE | 2017-04-26 22:15 | EKG REPORT ---
SEVERITY:- ABNORMAL ECG - SINUS RHYTHM VENTRICULAR PREMATURE COMPLEX LVH WITH SECONDARY REPOLARIZATION ABNORMALITY : Confirmed by: Aliyah Brooks 26-Apr-2017 22:15:02
[2017-04-27 01:29] LABS: CREATINE KINASE MB 1.35 ng/mL (<4.55); TROPONIN I 0.013 ng/mL
[2017-04-27] MEDS: LANSOPRAZOLE 15 MG TAB.RAP.DR PO SCH (05:55)
[2017-04-27] MEDS: CEFAZOLIN 2 GM/D5W RTU 2 GM/50 ML RTUPB IV SCH ×3 (05:55→17:16)
[2017-04-27 06:34] LABS: HEMATOCRIT 28.8 % (36.0-47.0); HEMOGLOBIN 9.5 g/dL (12.0-15.5); MEAN CORPUSCULAR HEMOGLOBIN 30.3 pg (27.0-33.4); MEAN CORPUSCULAR VOLUME 92 fl (80-97); PLATELET COUNT 130 10^3/uL (150-450); RED BLOOD COUNT 3.13 10^6/uL (3.72-5.28); RED CELL DISTRIBUTION WIDTH 13.4 % (11.5-14.0); WHITE BLOOD COUNT 16.2 10^3/uL (4.0-10.5)
[2017-04-27] MEDS: METOCLOPRAMIDE HCL ORAL SOLN 10 MG/10 ML UDCUP PO SCH ×4 (07:34→22:08)
[2017-04-27] MEDS: SUCRALFATE SUSP 1 GM/10 ML UDCUP PO SCH ×4 (07:34→22:06)
[2017-04-27] MEDS: OXYCODONE HCL IR 5 MG TABLET PO PRN ×4 (07:34→22:07)
[2017-04-27] MEDS: ONDANSETRON HCL INJ/PF 4 MG/2 ML SDV IV PRN (09:14)
[2017-04-27] MEDS: HYDROMORPHONE HCL INJ/PF 2 MG/ML AMPULE IV PRN ×2 (09:15→14:16)
[2017-04-27] MEDS: PREDNISONE 5 MG TABLET PO SCH (09:32)
[2017-04-27] MEDS: METOPROLOL SUCCINATE 25 MG TAB.SR.24H PO SCH (09:33)
[2017-04-27] MEDS: PRENATAL VITAMIN W DHA CAPSULE PO SCH (09:33)
--- NOTE | 2017-04-27 14:09 | PDOC PROGRESS REPORT ---
Subjective Progress Note for:: 04/27/17 Subjective:: Patient currently lying in bed comfortably. She states the pain in her knee is improved after Dilaudid but still has difficulty getting comfortable. Previous chest pain has resolved after that one episode. Denies shortness of breath. Reason For Visit: STATUS POST LEFT TOTAL KNEE ARTHROPLASTY Physical Exam Vital Signs: Temp Pulse Resp BP Pulse Ox 99.3 F 104 H 16 115/63 95 04/27/17 12:00 04/27/17 12:00 04/27/17 12:00 04/27/17 12:00 04/27/17 12:00 Intake & Output 04/26/17 04/27/17 04/28/17 06:59 06:59 06:59 Intake Total 991 1106 Output Total 700 250 Balance 291 856 Musculoskeletal exam: PRESENT: other - Left Knee: Dressing clean/dry/intact no erythema or drainage. Moderate thigh swelling no sign of compartment syndrome no calf tenderness. Intact plantar flexion/dorsiflexion. No sensory deficits. Results Laboratory Results: 04/27/17 05:50 04/25/17 05:08 04/27/17 05:50 WBC 16.2 H RBC 3.13 L Hgb 9.5 L Hct 28.8 L MCV 92 MCH 30.3 MCHC 33.0 RDW 13.4 Plt Count 130 L 04/26/17 04/26/17 04/26/17 13:02 13:02 19:45 Creatine Kinase 68 52 CK-MB (CK-2) 2.28 Troponin I 0.016 04/26/17 04/27/17 04/27/17 19:45 00:50 00:50 Creatine Kinase 42 CK-MB (CK-2) 1.85 1.35 Troponin I 0.014 0.013 Impressions: Knee X-Ray 04/24/17 00:00 IMPRESSION: SATISFACTORY POSTOPERATIVE LEFT KNEE. Assessment & Plan - Diagnosis (1) History of total left knee replacement Is this a current diagnosis for this admission?: Yes Plan: Status post left total knee arthroplasty. #1 physical therapy #2 pain control #3 Xarelto for DVT prophylaxis #4 discharge planning to correction facility #5 new onset chest pain previous chest pain has resolved. Appreciate hospitalist consultation for evaluation. Troponins and EKG have been negative.
--- NOTE | 2017-04-27 16:19 | PDOC PROGRESS REPORT ---
Subjective Progress Note for:: 04/27/17 Subjective:: Patient has not had recurrence of chest pain. She does not have any shortness of breath. No nausea or vomiting. Overall she is feeling well. She is making slow but reasonable progress with physical therapy postoperatively. Reason For Visit: STATUS POST LEFT TOTAL KNEE ARTHROPLASTY Physical Exam Vital Signs: Temp Pulse Resp BP Pulse Ox 99.3 F 104 H 16 115/63 95 04/27/17 12:00 04/27/17 12:00 04/27/17 12:00 04/27/17 12:00 04/27/17 12:00 Intake & Output 04/26/17 04/27/17 04/28/17 06:59 06:59 06:59 Intake Total 991 1106 Output Total 700 250 Balance 291 856 General appearance: PRESENT: no acute distress Head exam: PRESENT: atraumatic, normocephalic Eye exam: PRESENT: conjunctiva pink, EOMI Mouth exam: PRESENT: moist Respiratory exam: PRESENT: clear to auscultation lobito, unlabored Cardiovascular exam: PRESENT: RRR. ABSENT: systolic murmur Pulses: PRESENT: normal radial pulses GI/Abdominal exam: PRESENT: normal bowel sounds, soft, other - No right upper quadrant or epigastric tenderness to palpation.. ABSENT: distended, guarding, tenderness Rectal exam: PRESENT: deferred Musculoskeletal exam: PRESENT: other - No tenderness to palpation over chest wall. Neurological exam: PRESENT: alert, awake, oriented to person, oriented to place , oriented to situation Psychiatric exam: PRESENT: appropriate affect. ABSENT: anxious Skin exam: PRESENT: dry, warm Results Laboratory Results: 04/27/17 05:50 04/25/17 05:08 04/27/17 05:50 WBC 16.2 H RBC 3.13 L Hgb 9.5 L Hct 28.8 L MCV 92 MCH 30.3 MCHC 33.0 RDW 13.4 Plt Count 130 L 04/26/17 04/26/17 04/26/17 13:02 13:02 19:45 Creatine Kinase 68 52 CK-MB (CK-2) 2.28 Troponin I 0.016 04/26/17 04/27/17 04/27/17 19:45 00:50 00:50 Creatine Kinase 42 CK-MB (CK-2) 1.85 1.35 Troponin I 0.014 0.013 Impressions: Knee X-Ray 04/24/17 00:00 IMPRESSION: SATISFACTORY POSTOPERATIVE LEFT KNEE. Assessment & Plan - Diagnosis (1) Chest discomfort Is this a current diagnosis for this admission?: Yes Plan: Resolved. Possibly musculoskeletal or positional in origin. No evidence at this point of an acute coronary syndrome or other obvious etiology of the chest discomfort. I have spoken with orthopedic surgeon who is comfortable with the hospitalist signing off. He knows to reconsult if needed. (2) History of total left knee replacement Is this a current diagnosis for this admission?: Yes Plan: Per orthopedic surgery (3) GERD (gastroesophageal reflux disease) Is this a current diagnosis for this admission?: Yes Plan: Continue current medication regimen. (4) Rheumatoid arthritis Is this a current diagnosis for this admission?: Yes Plan: Continue current medication regimen. (5) Hypertension Is this a current diagnosis for this admission?: Yes Plan: Continue current medication regimen. - Time Time Spent with patient: 25-34 minutes Medications reviewed and adjusted accordingly: Yes - Inpatient Certification Medical Necessity: Significant Comorbidiites Make Outpatient Treatment Too Risky , Need Close Monitoring Due to Risk of Patient Decompensation, Risk of Complication if Not Cared For in Hospital
[2017-04-27] MEDS ORDERED: POLYETHYLENE GLYCOL 3350 POWDER 17 GM/1 PACKET PO ONE (17:30)
[2017-04-27] MEDS: RIVAROXABAN 10 MG TABLET PO SCH (22:06)
[2017-04-28] MEDS: CEFAZOLIN 2 GM/D5W RTU 2 GM/50 ML RTUPB IV SCH ×4 (00:22→17:42)
[2017-04-28] MEDS: HYDROMORPHONE HCL INJ/PF 2 MG/ML AMPULE IV PRN ×2 (04:17→10:22)
[2017-04-28] MEDS: LANSOPRAZOLE 15 MG TAB.RAP.DR PO SCH (05:39)
[2017-04-28] MEDS: SUCRALFATE SUSP 1 GM/10 ML UDCUP PO SCH ×3 (08:43→17:42)
[2017-04-28] MEDS: METOCLOPRAMIDE HCL ORAL SOLN 10 MG/10 ML UDCUP PO SCH ×3 (08:43→17:42)
[2017-04-28] MEDS: PRENATAL VITAMIN W DHA CAPSULE PO SCH (10:22)
[2017-04-28] MEDS: POLYETHYLENE GLYCOL 3350 POWDER 17 GM/1 PACKET PO SCH (10:22)
[2017-04-28] MEDS: METOPROLOL SUCCINATE 25 MG TAB.SR.24H PO SCH (11:17)
[2017-04-28] MEDS: PREDNISONE 5 MG TABLET PO SCH (11:17)
--- NOTE | 2017-04-28 13:00 | PDOC PROGRESS REPORT ---
Subjective Progress Note for:: 04/28/17 Subjective:: denies shortness of breath or chest pain, no issues overnight but still asking for dilaudid for pain control. Reason For Visit: STATUS POST LEFT TOTAL KNEE ARTHROPLASTY Physical Exam Vital Signs: Temp Pulse Resp BP Pulse Ox 36.9 C 105 H 18 114/58 L 95 04/28/17 11:28 04/28/17 11:28 04/28/17 11:28 04/28/17 11:28 04/28/17 11:28 Intake & Output 04/27/17 04/28/17 04/29/17 06:59 06:59 06:59 Intake Total 1106 862 Output Total 250 650 Balance 856 212 General appearance: PRESENT: no acute distress Adult Front & Back Image: 1 - Incision dry clean and intact, NVI distally. soft deptressible calf. -10 to 70 degree ROM Results Laboratory Results: 04/27/17 05:50 04/25/17 05:08 04/26/17 04/26/17 04/26/17 13:02 13:02 19:45 Creatine Kinase 68 52 CK-MB (CK-2) 2.28 Troponin I 0.016 04/26/17 04/27/17 04/27/17 19:45 00:50 00:50 Creatine Kinase 42 CK-MB (CK-2) 1.85 1.35 Troponin I 0.014 0.013 Impressions: Knee X-Ray 04/24/17 00:00 IMPRESSION: SATISFACTORY POSTOPERATIVE LEFT KNEE. Status: Image reviewed by me Assessment & Plan - Diagnosis (1) History of total left knee replacement Is this a current diagnosis for this admission?: Yes Plan: Patient POD 4 from left TKA WBAT and ROM as tolerated COntinue PT Will increase oxycodone dose and eliminate IV dilaudid Xarelto for DVT prophylaxis D/C planning to [facility]
[2017-04-28] MEDS: OXYCODONE HCL IR 5 MG TABLET PO PRN (22:52)
[2017-04-29] MEDS: SUCRALFATE SUSP 1 GM/10 ML UDCUP PO SCH ×4 (01:08→15:09)
[2017-04-29] MEDS: METOCLOPRAMIDE HCL ORAL SOLN 10 MG/10 ML UDCUP PO SCH ×4 (01:09→15:09)
[2017-04-29] MEDS: CEFAZOLIN 2 GM/D5W RTU 2 GM/50 ML RTUPB IV SCH ×2 (01:10→06:29)
[2017-04-29] MEDS: RIVAROXABAN 10 MG TABLET PO SCH (01:14)
[2017-04-29] MEDS: OXYCODONE HCL IR 5 MG TABLET PO PRN (03:55)
[2017-04-29] MEDS: LANSOPRAZOLE 15 MG TAB.RAP.DR PO SCH (06:29)
[2017-04-29] MEDS ORDERED: OXYCODONE HCL IR 5 MG TABLET PO PRN ×2 (07:18→07:19)
--- NOTE | 2017-04-29 08:40 | PDOC TRANSFER SUMMARY ---
General - Admit/Disc Date/PCP Admission Date/Primary Care Provider: 04/24/17 05:32 DAYANA RICE, Discharge Date: 04/29/17 - Discharge Diagnosis (1) History of total left knee replacement Is this a current diagnosis for this admission?: Yes - Additional Information Resuscitation Status: Full Code Home Medications: Abatacept [Orencia Clickject] 125 mg SQ [id number] 04/24/17 Metoclopramide HCl [Reglan Oral Soln 10 mg/10 ml Udcup] 10 mg PO [facility] 04/24/17 Metoprolol Succinate [Toprol Xl 25 mg Tab.sr] 25 mg PO DAILY 04/24/17 Prednisone [Deltasone 5 mg Tablet] 5 mg PO DAILY 04/24/17 Sucralfate [Carafate Susp 1 Gm/10 Ml Udcup] 1 gm PO [facility] 04/24/17 Tramadol HCl [Ultram 50 mg Tablet] 50 mg PO Q6HP PRN 04/24/17 History of Present Illness Admission Date/PCP: 04/24/17 05:32 DAYANA RICE, Patient complains of: Left knee pain History of Present Illness: Patient with RA and severe arthritis of left knee has no longer relief from conservative treatment of her left knee arthritis. Patient agreed to proceed with Left TKA after discussing risks and benefits. Hospital Course Hospital Course: 04/24 Patient underwent Left TKA without issues. Vitals were stable during hospital stay POD 1 Patient participated with PT, complained of pain POD 2 Still required IV dilaudid POD 3 had chest pain and shortness of breath. Hospitalist evaluated patient and cleared her of any acute cardiorespiratory event POD4 IV pain med D/C plan to send to rehab POD 5 patient will be transferred to SNF Physical Exam Vital Signs: Temp Pulse Resp BP Pulse Ox 36.8 C 89 20 126/63 H 97 04/29/17 04:21 04/29/17 04:21 04/29/17 04:21 04/29/17 04:21 04/29/17 04:21 Intake & Output 04/28/17 04/29/17 04/30/17 06:59 06:59 06:59 Intake Total 862 150 Output Total 650 Balance 212 150 Weight 76.9 kg General appearance: PRESENT: no acute distress Head exam: PRESENT: atraumatic Eye exam: PRESENT: EOMI. ABSENT: conjunctival injection, nystagmus Respiratory exam: PRESENT: symmetrical, unlabored. ABSENT: accessory muscle use , tachypnea Cardiovascular exam: PRESENT: RRR Pulses: PRESENT: +2 pedal pulses bilateral Vascular exam: PRESENT: normal capillary refill Neurological exam: PRESENT: alert, awake, oriented to person, oriented to place , oriented to time, oriented to situation Psychiatric exam: PRESENT: appropriate affect, normal mood Skin exam: PRESENT: other Adult Front & Back Image: 1 - Incision and dressing dry clean and intact. positive lower leg swelling, no tenderness of calf. NVI. -10 ext to 80 of flexion Results Laboratory Results: 04/27/17 05:50 04/25/17 05:08 04/26/17 04/26/17 04/26/17 13:02 13:02 19:45 Creatine Kinase 68 52 CK-MB (CK-2) 2.28 Troponin I 0.016 04/26/17 04/27/17 04/27/17 19:45 00:50 00:50 Creatine Kinase 42 CK-MB (CK-2) 1.85 1.35 Troponin I 0.014 0.013 Impressions: Knee X-Ray 04/24/17 00:00 IMPRESSION: SATISFACTORY POSTOPERATIVE LEFT KNEE. Status: Image reviewed by me Transfer Plan - Disposition Transfer Plan: Transfer to correction facility follow up in 2 weks in my office WBAT with ROM as tolerated Qualifiers - * PATEINT BEING DISCHARGED WITH ANY OF THE FOLLOWING DIAGNOSIS?: No VTE patient discharged on overlapping Therapy?: Yes Plan Discharge Plan: remove dressing in 3 days then ok to shower PT daily WBAT ROM as tolerated xarelto andPercocet prescription given at discharged follow up as outpatient in 2 weeks
[2017-04-29] MEDS: METOPROLOL SUCCINATE 25 MG TAB.SR.24H PO SCH (09:47)
[2017-04-29] MEDS: PREDNISONE 5 MG TABLET PO SCH (09:49)
[2017-04-29] MEDS: POLYETHYLENE GLYCOL 3350 POWDER 17 GM/1 PACKET PO SCH (09:49)
[2017-04-29] MEDS: PRENATAL VITAMIN W DHA CAPSULE PO SCH (09:50)
[2017-04-29 15:57] VITALS: BP 123/61
== END 2017-04-29 16:40 | DRG 470 ==
LOC: INOR 05:32 → 4S 12:00 → 2N 04-27 23:35
PROVIDERS: ADMIT Orthopaedic Surgery; ATTEND Orthopaedic Surgery
PROC: 0SRD0J9 Replacement of Left Knee Joint with Synthetic Substitute, Cemented, Open Approach (ICD-10-PCS; principal; 2017-04-24 07:30)
DX: M17.12 Unilateral primary osteoarthritis, left knee (principal); J44.9 Chronic obstructive pulmonary disease, unspecified; I10 Essential (primary) hypertension; M06.9 Rheumatoid arthritis, unspecified; Z53.29 Procedure and treatment not carried out because of patient's decision for other reasons; Z60.2 Problems related to living alone; K21.9 Gastro-esophageal reflux disease without esophagitis; Z82.49 Family history of ischemic heart disease and other diseases of the circulatory system; Z79.899 Other long term (current) drug therapy; Z88.6 Allergy status to analgesic agent; Z88.2 Allergy status to sulfonamides; Z82.61 Family history of arthritis; Z80.9 Family history of malignant neoplasm, unspecified
CPT/HCPCS: 01402; 36415; 80048; 82550; 82553; 84484; 85027; 88305; 88311; 93005; 93010; C9290; G8978-GP; G8979-GP; G8987-GO; G8988-GO; J0690; J1100; J1170; J1741; J2250; J2405; J2704; J3010; J3370; J3490; J7050; J7060; J7120; J7512

== ENCOUNTER → 2017-05-27 | Outpatient (CLI) | payer MEDICARE | LOC: WI 15:30 | PROVIDERS: ATTEND Family Medicine | DX: Z12.31 Encounter for screening mammogram for malignant neoplasm of breast (principal) | CPT/HCPCS: 77063; 77067 ==

== ENCOUNTER → 2017-10-14 | Outpatient (CLI) | payer MEDICARE ==
[2017-10-14 10:05] LABS: ABSOLUTE EOSINOPHILS # (AUTO) 0.1 10^3/uL (0.0-0.6); ABSOLUTE LYMPHOCYTES (AUTO) 1.5 10^3/uL (0.5-4.7); ABSOLUTE MONOCYTES (AUTO) 0.6 10^3/uL (0.1-1.4); ABSOLUTE NEUT (AUTO) 4.7 10^3/uL (1.7-8.2); BASOPHILS % (AUTO) 0.5 % (0-2); EOSINOPHILS % (AUTO) 2.1 % (0-6); HEMATOCRIT 41.6 % (36.0-47.0); HEMOGLOBIN 13.6 g/dL (12.0-15.5); LYMPHOCYTES % (AUTO) 21.7 % (13-45); MEAN CORPUSCULAR HEMOGLOBIN 29.3 pg (27.0-33.4); MEAN CORPUSCULAR HGB CONC 32.7 g/dL (32.0-36.0); MEAN CORPUSCULAR VOLUME 90 fl (80-97); MONOCYTES % (AUTO) 8.6 % (3-13); PLATELET COUNT 213 10^3/uL (150-450); RED BLOOD COUNT 4.63 10^6/uL (3.72-5.28); RED CELL DISTRIBUTION WIDTH 15.6 % (11.5-14.0); SEGMENTED NEUTROPHILS % (AUTO) 67.1 % (42-78); TOTAL CELLS COUNTED % (AUTO) 100 %
[2017-10-14 10:24] LABS: ALANINE AMINOTRANSFERASE 19 U/L (9-52); ALBUMIN 3.5 g/dL (3.5-5.0); ALKALINE PHOSPHATASE 83 U/L (38-126); ANION GAP 13 (5-19); ASPARTATE AMINO TRANSFERASE 18 U/L (14-36); BILIRUBIN,DIRECT 0.2 mg/dL (0.0-0.4); BILIRUBIN,TOTAL 0.4 mg/dL (0.2-1.3); BLOOD UREA NITROGEN 19 mg/dL (7-20); CALCIUM 9.2 mg/dL (8.4-10.2); CARBON DIOXIDE 25 mmol/L (22-30); CHLORIDE 108 mmol/L (98-107); CHOLESTEROL 158.53 mg/dL (0-200); GLUCOSE 93 mg/dL (75-110); POTASSIUM 4.5 mmol/L (3.6-5.0); SODIUM 145.7 mmol/L (137-145); TOTAL PROTEIN 6.5 g/dL (6.3-8.2); TRIGLYCERIDES 168 mg/dL (<150)
[2017-10-14 10:36] LABS: DIRECT LDL 89 mg/dL (<100)
[2017-10-14 11:00] LABS: ERYTHROCYTE SEDIMENTATION RATE 10 mm/hr (0-30)
[2017-10-14 11:15] LABS: VLDL CHOLESTEROL 33.6 mg/dL (10-31)
== END ==
LOC: OD 09:02
PROVIDERS: ATTEND Internal Medicine
DX: L57.0 Actinic keratosis (principal); I10 Essential (primary) hypertension; J43.1 Panlobular emphysema; M05.9 Rheumatoid arthritis with rheumatoid factor, unspecified; Z68.24 Body mass index [BMI] 24.0-24.9, adult; R53.1 Weakness; N28.9 Disorder of kidney and ureter, unspecified; E55.9 Vitamin D deficiency, unspecified
CPT/HCPCS: 36415; 80053; 80061; 82306; 82607; 82746; 83036; 85025; 85652

== ENCOUNTER → 2017-12-19 | Outpatient (CLI) | payer MEDICARE ==
[~2017-12-19] MED LIST changes: +ALBUTEROL SULFATE 0.083% NEB 2.5 MG/3 ML AMPUL NEB ONE; -CEFAZOLIN 2 GM/D5W RTU 2 GM/50 ML RTUPB IV PRN; -LACTATED RINGERS 1000 ML IV PRN; -LIDOCAINE 0.5% INJ-PF (5 MG/ML) 50 ML SDV SUBCUT PRN
--- NOTE | 2017-12-19 14:55 | RADIOLOGY REPORT (SQ) ---
EXAM DESCRIPTION: CHEST 2 VIEWS COMPLETED DATE/TIME: 12/19/2017 2:44 pm REASON FOR STUDY: CHRONIC OBSTRUCTIVE PULMONARY DISEASE, UNSPECIFIED COMPARISON: 10/25/2015 EXAM PARAMETERS: NUMBER OF VIEWS: two views TECHNIQUE: Digital Frontal and Lateral radiographic views of the chest acquired. RADIATION DOSE: NA LIMITATIONS: none FINDINGS: LUNGS AND PLEURA: No opacities, masses or pneumothorax. No pleural effusion. MEDIASTINUM AND HILAR STRUCTURES: No masses or contour abnormalities. HEART AND VASCULAR STRUCTURES: Heart normal size. No evidence for failure. BONES: No acute findings. HARDWARE: None in the chest. OTHER: No other significant finding. IMPRESSION: NO ACUTE RADIOGRAPHIC FINDING IN THE CHEST. TECHNICAL DOCUMENTATION: JOB ID: [id number] [employer]- All Rights Reserved Reading location - IP/workstation name: [email or web address]
--- NOTE | 2017-12-22 12:49 | Pulmonary Function Test ---
Pulmonary Function Test Date of Procedure:: 12/22/17 INDICATION:: COPD Referring Provider: Dr. Colby Gasca Technical Training Specialist: Amy Kelly, [employer]OUT[employer], FUNERAL DIRECTOR'S ASSISTANT - Report Spirometry: FVC 2.25 L 78% postbronchodilator 2.26 L 79% FEV1 1.46 L 67% postbronchodilator 1.64 L 75% FEV1/FVC % 65 postbronchodilator 72 predicted 81 FEF 25-75% 0.72 L 36% postbronchodilator 1.15 L 58% Lung Volume: Total lung capacity 4.06 L 81% Vital capacity 2.25 L 78% Inspiratory capacity 0.97 L FRC N2 3.09 L 104% ERV 1.02 L RV 1.81 L 69% RV/TLC % 45 predicted 41 Diffusion Capactity: Diffusion capacity 10.6 57% DLCO/VA 4.33 121% Impression: Obstructive ventilatory defect with good response to bronchodilator therapy. No hyperinflation or air trapping. Moderate decrease in diffusion capacity.
== END ==
LOC: RT 12:59
PROVIDERS: ATTEND Internal Medicine
DX: J44.9 Chronic obstructive pulmonary disease, unspecified (principal)
CPT/HCPCS: 71046; 94729; 94727; 94060; A9270

== ENCOUNTER → 2018-04-30 | Outpatient (CLI) | payer MEDICARE ==
[2018-04-30 11:59] LABS: ABSOLUTE EOSINOPHILS # (AUTO) 0.2 10^3/uL (0.0-0.6); ABSOLUTE LYMPHOCYTES (AUTO) 1.6 10^3/uL (0.5-4.7); ABSOLUTE MONOCYTES (AUTO) 0.6 10^3/uL (0.1-1.4); ABSOLUTE NEUT (AUTO) 4.6 10^3/uL (1.7-8.2); BASOPHILS % (AUTO) 0.7 % (0-2); EOSINOPHILS % (AUTO) 2.3 % (0-6); HEMOGLOBIN 14.4 g/dL (12.0-15.5); LYMPHOCYTES % (AUTO) 23.2 % (13-45); MEAN CORPUSCULAR HEMOGLOBIN 31.6 pg (27.0-33.4); MEAN CORPUSCULAR HGB CONC 34.1 g/dL (32.0-36.0); MEAN CORPUSCULAR VOLUME 92 fl (80-97); MONOCYTES % (AUTO) 8.5 % (3-13); PLATELET COUNT 211 10^3/uL (150-450); RED BLOOD COUNT 4.55 10^6/uL (3.72-5.28); RED CELL DISTRIBUTION WIDTH 13.3 % (11.5-14.0); SEGMENTED NEUTROPHILS % (AUTO) 65.3 % (42-78); TOTAL CELLS COUNTED % (AUTO) 100 %
[2018-04-30 12:21] LABS: ALANINE AMINOTRANSFERASE 23 U/L (9-52); ALBUMIN 3.9 g/dL (3.5-5.0); ALKALINE PHOSPHATASE 103 U/L (38-126); ANION GAP 7 (5-19); ASPARTATE AMINO TRANSFERASE 25 U/L (14-36); BILIRUBIN,DIRECT 0.1 mg/dL (0.0-0.4); BILIRUBIN,TOTAL 0.5 mg/dL (0.2-1.3); BLOOD UREA NITROGEN 23 mg/dL (7-20); CALCIUM 9.2 mg/dL (8.4-10.2); CARBON DIOXIDE 30 mmol/L (22-30); CHLORIDE 107 mmol/L (98-107); CHOLESTEROL 169.37 mg/dL (0-200); GLUCOSE 87 mg/dL (75-110); POTASSIUM 4.2 mmol/L (3.6-5.0); SODIUM 144.4 mmol/L (137-145); TOTAL PROTEIN 6.4 g/dL (6.3-8.2); TRIGLYCERIDES 98 mg/dL (<150)
[2018-04-30 12:32] LABS: DIRECT LDL 103 mg/dL (<100)
== END ==
LOC: OD 10:52
PROVIDERS: ATTEND Internal Medicine
DX: D64.9 Anemia, unspecified (principal); E78.5 Hyperlipidemia, unspecified; E11.8 Type 2 diabetes mellitus with unspecified complications; R10.9 Unspecified abdominal pain; E03.9 Hypothyroidism, unspecified
CPT/HCPCS: 36415; 80053; 80061; 83036; 84443; 85025

== ENCOUNTER → 2018-07-30 | Outpatient (CLI) | payer MEDICARE ==
[2018-07-30 10:53] LABS: ANION GAP 8 (5-19); BLOOD UREA NITROGEN 26 mg/dL (7-20); CALCIUM 9.4 mg/dL (8.4-10.2); CARBON DIOXIDE 28 mmol/L (22-30); CHLORIDE 107 mmol/L (98-107); GLUCOSE 89 mg/dL (75-110); POTASSIUM 4.5 mmol/L (3.6-5.0); SODIUM 142.7 mmol/L (137-145); TRIGLYCERIDES 150 mg/dL (<150)
[2018-07-30 11:03] LABS: DIRECT LDL 105 mg/dL (<100)
== END ==
LOC: OD 09:53
PROVIDERS: ATTEND Internal Medicine
DX: E78.5 Hyperlipidemia, unspecified (principal); N28.9 Disorder of kidney and ureter, unspecified
CPT/HCPCS: 36415; 80048; 80061

== ENCOUNTER 2019-10-15 12:01 | Emergency (ER) | payer MEDICARE ==
--- NOTE | 2019-10-15 12:36 | ER Document Report ---
ED Medical Screen (RME) - General Chief Complaint: Weakness Stated Complaint: WEAKNESS Time Seen by Provider: 10/15/19 12:21 Primary Care Provider: FELIZ HICKS MD [Primary Care Provider] - Follow up as needed Notes: Patient is a 74-year-old female who presents to the emergency department with generalized weakness and low blood pressure readings at home. Patient was seen here last week in the emergency department and her metoprolol was stopped. She was started on lisinopril and patient started to feel weak this morning. Her blood pressure readings were in the 50s to 80s systolic. Denies any dysuria, co ugh, congestion, or any other symptoms. Exam: Normal upper and lower extremity strength. Blood pressure 119/45 I have greeted and performed a rapid initial assessment of this patient. A comprehensive ED assessment and evaluation of the patient, analysis of test results and completion of medical decision making process will be conducted by an additional ED providers. TRAVEL OUTSIDE OF THE [place] IN LAST 30 DAYS: No - Related Data Allergies/Adverse Reactions: sulfamethoxazole [From Bactrim] Allergy (Verified 10/05/16 16:01) Vomiting trimethoprim [From Bactrim] Allergy (Verified 10/05/16 16:01) Vomiting codeine phosphate [From Tylenol-Codeine] Adverse Reaction (Severe, Verified 10/05/16 16:01) Hallucinations Past Medical History - Past Medical History Cardiac Medical History: Reports: Hx Hypertension - r/t meds taken, not currently taking meds Denies: Hx Atrial Fibrillation, Hx Congestive Heart Failure, Hx Coronary Artery Disease, Hx Heart Attack, Hx Hypercholesterolemia, Hx Peripheral Vascular Disease, Hx Pulmonary Embolism, Hx Heart Murmur Pulmonary Medical History: Reports: Hx Bronchitis Denies: Hx Asthma, Hx COPD, Hx Pneumonia, Hx Respiratory Failure, Hx Sleep Apnea, Hx Tuberculosis Neurological Medical History: Renal/ Medical History: Reports: Hx Ovarian Cysts - 1999. Denies: Hx End Stage Renal Disease - had been as low as 20% function r/t meds, Hx Kidney Stones, Hx Peritoneal Dialysis, Hx Pelvic Inflammatory Disease Malignancy Medical History: Denies: Hx Breast Cancer, Hx Cervical Cancer, Hx Leukemia, Hx Lung Cancer, Hx Ovarian Cancer GI Medical History: Reports: Hx Hiatal Hernia. Denies: Hx Crohn's Disease, Hx Gastroesophageal Reflux Disease, Hx Irritable Bowel, Hx Liver Failure, Hx Pancreatitis, Hx Ulcer Musculoskeltal Medical History: Reports Hx Arthritis, Denies Hx Fibromyalgia, Denies Hx Muscular Dystrophy, Reports Hx Musculoskeletal Trauma Traumatic Medical History: Reports: Hx Fractures - 2016 left humerus,rt arm 2007,ribs fx 2000 Infectious Medical History: Denies: Hx HIV Past Surgical History: Reports: Hx Orthopedic Surgery - foot, knee, Lshoulder replacment 05/2015. Denies: Hx Appendectomy, Hx Bowel Surgery, Hx Section, Hx Cholecystectomy, Hx Colostomy, Hx Coronary Artery Bypass Graft, Hx Gastric Bypass Surgery, Hx Herniorrhaphy, Hx Hysterectomy, Hx Mastectomy, Hx Pacemaker, Hx Tonsillectomy, Hx Tubal Ligation - Immunizations Hx Diphtheria, Pertussis, Tetanus Vaccination: Yes Physical Exam - Vital signs Vitals: Temp Pulse Resp BP Pulse Ox 98.8 F 45 L 16 119/45 L 94 10/15/19 12:08 10/15/19 12:08 10/15/19 12:08 10/15/19 12:08 10/15/19 12:08 Course - Vital Signs Vital signs: Temp Pulse Resp BP Pulse Ox 98.8 F 45 L 16 119/45 L 94 10/15/19 12:08 10/15/19 12:08 10/15/19 12:08 10/15/19 12:08 10/15/19 12:08 Doctor's Discharge - Discharge Referrals: FELIZ HICKS MD [Primary Care Provider] - Follow up as needed
--- NOTE | 2019-10-15 14:03 | ER Document Report ---
ED General - General Chief Complaint: Low Blood Pressure Stated Complaint: WEAKNESS Time Seen by Provider: 10/15/19 12:21 Primary Care Provider: FELIZ HICKS MD [Primary Care Provider] - Follow up as needed TRAVEL OUTSIDE OF THE [place] IN LAST 30 DAYS: No - HPI Notes: Chief complaint: Low blood pressure History of present illness: 74-year-old female with longstanding history of hypertension, rheumatoid arthritis and osteoporosis was seen here approximately [address] Aditya Baumann for evaluation of low blood pressure. He noted that she was relatively bradycardic at that time and on a beta-nena. Beta-nena was discontinued and he substituted lisinopril 2.5 mg daily. We note that patient had had a recent fracture of her left proximal humerus secondary to a fall and is under the care of Dr. Lema from orthopedics. She chronically takes tramadol because of pain related to the rheumatoid arthritis. Patient is still having episodic hypotension with systolic pressure 60-80 measured outside the hospital. She is not having any syncope or presyncope. She is not experiencing any chest pain or shortness of breath. She denies vomiting or diarrhea. She says she maintains good food and fluid intake. She denies dysuria. She denies cough. - Related Data Allergies/Adverse Reactions: sulfamethoxazole [From Bactrim] Allergy (Verified 10/05/16 16:01) Vomiting trimethoprim [From Bactrim] Allergy (Verified 10/05/16 16:01) Vomiting codeine phosphate [From Tylenol-Codeine] Adverse Reaction (Severe, Verified 10/05/16 16:01) Hallucinations Past Medical History - General Information source: Patient, Relative - Social History Smoking Status: Never Smoker Chew tobacco use (# tins/day): No Frequency of alcohol use: None Drug Abuse: None Family History: None, Other - Father with congestive heart failure in his 70s, her daughter had congestive heart failure - Past Medical History Cardiac Medical History: Reports: Hx Hypertension - r/t meds taken, not currently taking meds Denies: Hx Atrial Fibrillation, Hx Congestive Heart Failure, Hx Coronary Artery Disease, Hx Heart Attack, Hx Hypercholesterolemia, Hx Peripheral Vascular Disease, Hx Pulmonary Embolism, Hx Heart Murmur Pulmonary Medical History: Reports: Hx Bronchitis Denies: Hx Asthma, Hx COPD, Hx Pneumonia, Hx Respiratory Failure, Hx Sleep Apnea, Hx Tuberculosis Neurological Medical History: Renal/ Medical History: Reports: Hx Ovarian Cysts - 1999. Denies: Hx End Stage Renal Disease - had been as low as 20% function r/t meds, Hx Kidney Stones, Hx Peritoneal Dialysis, Hx Pelvic Inflammatory Disease Malignancy Medical History: Denies: Hx Breast Cancer, Hx Cervical Cancer, Hx Leukemia, Hx Lung Cancer, Hx Ovarian Cancer GI Medical History: Reports: Hx Hiatal Hernia. Denies: Hx Crohn's Disease, Hx Gastroesophageal Reflux Disease, Hx Irritable Bowel, Hx Liver Failure, Hx Pancreatitis, Hx Ulcer Musculoskeletal Medical History: Reports Hx Arthritis, Denies Hx Fibromyalgia, Denies Hx Muscular Dystrophy, Reports Hx Musculoskeletal Trauma Traumatic Medical History: Reports: Hx Fractures - 2015 left humerus,rt arm 2007,ribs fx 2000 Infectious Medical History: Denies: Hx HIV Past Surgical History: Reports: Hx Orthopedic Surgery - foot, knee, Lshoulder replacment 05/2015. Denies: Hx Appendectomy, Hx Bowel Surgery, Hx Section, Hx Cholecystectomy, Hx Colostomy, Hx Coronary Artery Bypass Graft, Hx Gastric Bypass Surgery, Hx Herniorrhaphy, Hx Hysterectomy, Hx Mastectomy, Hx Pacemaker, Hx Tonsillectomy, Hx Tubal Ligation - Immunizations Hx Diphtheria, Pertussis, Tetanus Vaccination: Yes Hx Pneumococcal Vaccination: 12/09/15 Review of Systems - Review of Systems Notes: Constitutional: Negative for fever. HENT: Negative for sore throat. Eyes: Negative for visual changes. Cardiovascular: Negative for chest pain. Respiratory: Negative for shortness of breath. Gastrointestinal: Negative for abdominal pain, vomiting or diarrhea. Genitourinary: Negative for dysuria. Musculoskeletal: Negative for back pain. Skin: Negative for rash. Neurological: Negative for headaches, weakness or numbness. 10 point ROS negative except as marked above and in HPI. Physical Exam - Vital signs Vitals: Temp Pulse Resp BP Pulse Ox 98.8 F 45 L 16 119/45 L 94 10/15/19 12:08 10/15/19 12:08 10/15/19 12:08 10/15/19 12:08 10/15/19 12:08 - Notes Notes: GENERAL: Frail elderly female appearing in no acute distress. SKIN: Good turgor no rashes. HEAD: Normocephalic atraumatic. EYES: PERRLA. EOMI. Conjunctivae and sclerae clear. EARS: CANALS AND TMS CLEAR. NOSE: CLEAR. MOUTH: Moist mucosa. Good dentition. No stridor or edema. No drooling. NECK: Supple. No masses or thyromegaly. No adenopathy. Carotids 2+ without bruits. No JVD. BACK: Symmetrical without tenderness. CHEST: Respirations unlabored. Breath sounds clear and symmetrical. HEART: Regular rhythm. No murmur gallop or rub. ABDOMEN: Soft nontender without masses, organomegaly or rebound. Bowel sounds normally active. No bruits. GENITALIA: Deferred. EXTREMITIES: Prominent rheumatoid deformities of both hands and wrists. Patient is wearing a shoulder immobilizer left upper extremity. No edema. No calf tenderness. Cap refill less than 1.5 seconds. Dorsalis pedis and posterior tibial pulses 3+ and symmetrical. NEUROLOGICAL: GCS 15. Alert and oriented x3. Fluent speech. Cranial nerves II through XII intact. Sensorimotor and cerebellar normal. Normal tone. PSYCHIATRIC: Appropriate affect. Course - Re-evaluation Re-evalutation: 10/15/19 16:10 Patient had no fever or elevation of white count. Her chest x-ray was normal. Hemoglobin normal. Urinalysis normal. Troponin is normal. EKG showed no acute changes and she is not having any chest pain. Blood pressures been relatively normal here and she is not orthostatic at this time. I think this lady simply still has too much medication on board. I suggested discontinuation of lisinopril and follow-up with her primary care physician within the next 48 hours. Based on her current work-up she may need referral to a neurologist for further evaluation for possible dysautonomia if her blood pressure fails to stabilize with discontinuation of the antihypertensive. 10/15/19 16:12 - Vital Signs Vital signs: Temp Pulse Resp BP Pulse Ox 98.8 F 45 L 16 107/68 95 10/15/19 12:08 10/15/19 12:08 10/15/19 15:01 10/15/19 15:01 10/15/19 15:01 - Laboratory Result Diagrams: 10/15/19 13:55 10/15/19 13:55 Laboratory results interpreted by me: 10/15/19 10/15/19 13:55 13:55 RDW 15.8 H Potassium 5.1 H Anion Gap 3 L Est GFR (MDRD) Non-Af 58 L Total Protein 6.1 L Albumin 3.3 L - EKG Interpretation by Me Additional EKG results interpreted by me: 10/15/19 14:03 Twelve-lead EKG from 1336 hrs. reviewed contemporaneously by me showing normal sinus rhythm with a rate of 60 and a QRS axis of -34 degrees. She has some nonspecific intraventricular conduction delay present with QRS interval of 110 ms. TN and QT intervals are normal. There are no acute ST/T wave changes present. Indication for current study: Postural hypotension. Discharge - Discharge Clinical Impression: Postural hypotension Condition: Stable Disposition: HOME, SELF-CARE Additional Instructions: Stop lisinopril. Continue your other regular medications. Increase oral fluids. Return here as needed for new or worsening symptoms. Follow-up with your primary care doctor within the next 2 to 3 days. If your blood pressure fails to stabilize with current intervention I may need to refer you to a neurologist for further evaluation for postural autonomic hypotension. Referrals: FELIZ HICKS MD [Primary Care Provider] - Follow up as needed
[2019-10-15 14:20] LABS: ABSOLUTE EOSINOPHILS # (AUTO) 0.3 10^3/uL (0.0-0.6); ABSOLUTE LYMPHOCYTES (AUTO) 1.5 10^3/uL (0.5-4.7); ABSOLUTE MONOCYTES (AUTO) 0.6 10^3/uL (0.1-1.4); ABSOLUTE NEUT (AUTO) 3.9 10^3/uL (1.7-8.2); BASOPHILS % (AUTO) 0.7 % (0-2); EOSINOPHILS % (AUTO) 4.5 % (0-6); HEMATOCRIT 38.3 % (36.0-47.0); HEMOGLOBIN 12.8 g/dL (12.0-15.5); MEAN CORPUSCULAR HEMOGLOBIN 30.2 pg (27.0-33.4); MEAN CORPUSCULAR HGB CONC 33.4 g/dL (32.0-36.0); MEAN CORPUSCULAR VOLUME 90 fl (80-97); MONOCYTES % (AUTO) 9.9 % (3-13); PLATELET COUNT 187 10^3/uL (150-450); RED BLOOD COUNT 4.24 10^6/uL (3.72-5.28); RED CELL DISTRIBUTION WIDTH 15.8 % (11.5-14.0); SEGMENTED NEUTROPHILS % (AUTO) 60.9 % (42-78); TOTAL CELLS COUNTED % (AUTO) 100 %; WHITE BLOOD COUNT 6.3 10^3/uL (4.0-10.5)
[2019-10-15 14:21] LABS: APPEARANCE,URINE CLEAR; BILIRUBIN,URINE NEGATIVE (NEGATIVE); COLOR,URINE YELLOW; GLUCOSE, URINE NEGATIVE (NEGATIVE); KETONES,URINE NEGATIVE (NEGATIVE); LEUKOCYTE ESTERASE,URINE NEGATIVE (NEGATIVE); NITRITE,URINE NEGATIVE (NEGATIVE); PROTEIN,URINE NEGATIVE (NEGATIVE); URINE SPECIFIC GRAVITY 1.019; UROBILINOGEN,URINE NEGATIVE mg/dL (<2.0)
--- NOTE | 2019-10-15 14:31 | RADIOLOGY REPORT (SQ) ---
EXAM DESCRIPTION: CHEST SINGLE VIEW IMAGES COMPLETED DATE/TIME: 10/15/2019 2:22 pm REASON FOR STUDY: hypotension COMPARISON: 12/19/2017 EXAM PARAMETERS: NUMBER OF VIEWS: One view. TECHNIQUE: Single frontal radiographic view of the chest acquired. RADIATION DOSE: NA LIMITATIONS: None. FINDINGS: LUNGS AND PLEURA: Hyperexpansion. No consolidation or effusions. MEDIASTINUM AND HILAR STRUCTURES: No masses. Contour normal. HEART AND VASCULAR STRUCTURES: Heart normal in size. Normal vasculature. BONES: No acute findings. Chronic appearing fracture of the left humerus at the tip of the prosthesi s. HARDWARE: Unchanged. OTHER: No other significant finding. IMPRESSION: No acute findings in the chest. Chronic appearing fracture at the distal aspect of the prosthesis. There is some callus formation. 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 TECHNICAL DOCUMENTATION: JOB ID: [id number] 2010 [employer]- All Rights Reserved Reading location - IP/workstation name: [email or web address]
[2019-10-15 14:43] LABS: ALBUMIN 3.3 g/dL (3.5-5.0); ALKALINE PHOSPHATASE 109 U/L (38-126); ASPARTATE AMINO TRANSFERASE 19 U/L (14-36); BILIRUBIN,TOTAL 0.2 mg/dL (0.2-1.3); BLOOD UREA NITROGEN 20 mg/dL (7-20); CALCIUM 8.8 mg/dL (8.4-10.2); CARBON DIOXIDE 29 mmol/L (22-30); CHLORIDE 107 mmol/L (98-107); GLUCOSE 102 mg/dL (75-110); POTASSIUM 5.1 mmol/L (3.6-5.0); TOTAL PROTEIN 6.1 g/dL (6.3-8.2)
[2019-10-15 14:49] LABS: ANION GAP 3 (5-19)
--- NOTE | 2019-10-15 15:09 | EKG REPORT ---
SEVERITY:- ABNORMAL ECG - SINUS RHYTHM NONSPECIFIC INTRAVENTRICULAR CONDUCTION DELAY LEFT VENTRICULAR HYPERTROPHY : Confirmed by: Julio Laura MD 15-Oct-2019 15:09:03
[2019-10-15 16:22] VITALS: BP 126/64
== END 2019-10-15 16:40 | disposition home or self-care (01) ==
LOC: ER 12:01
DX: I95.1 Orthostatic hypotension (principal); I10 Essential (primary) hypertension; M97.32XD Periprosthetic fracture around internal prosthetic left shoulder joint, subsequent encounter; X58.XXXD Exposure to other specified factors, subsequent encounter; M06.9 Rheumatoid arthritis, unspecified; Z79.899 Other long term (current) drug therapy; Z88.1 Allergy status to other antibiotic agents
CPT/HCPCS: 36415; 71045; 80053; 81001; 84484; 85025; 93005; 93010; 99285

== ENCOUNTER → 2019-12-27 | Outpatient (CLI) | payer MEDICARE ==
--- NOTE | 2019-12-27 19:29 | XCELERA REPORT ---
[address] [address] Transthoracic Echocardiogram Report Name: THADDEUS PILLAI Age: 74 yrs Gender: Female : 1945 Patient Status: Outpatient Patient Location: Study Date: 12/27/2019 01:28 PM History: HTN Height: 67 in Weight: 135 lb BSA: 1.7 m2 Procedure: A complete two-dimensional transthoracic echocardiogram was performed (2D, M-mode, spectral and color flow Doppler). The study was technically difficult with many images being suboptimal in quality. Reason For Study: HTN Previous Evaluation: A previous study was performed on 07/18/2016 LVEF 45%. History: Dizziness Syncope. HTN. Ordering Physician: JOAO PATEL Performed By: Susan Patel Interpretation Summary The study was technically difficult with many images being suboptimal in quality. Left ventricular systolic function is low normal. The Ejection Fraction estimate is 50-55% The right ventricle is normal in size and function. There is a mild amount of mitral regurgitation There is no aortic valve stenosis There is a trace amount of aortic regurgitation There is a trace amount of tricuspid regurgitation Doppler findings do not suggest pulmonary hypertension. There is no pericardial effusion. MMode/2D Measurements & Calculations RVDd: 2.2 cm LVIDd: 4.9 cm FS: 30.0 % Ao root diam: 3.2 cm IVSd: 1.1 cm LVIDs: 3.5 cm EDV(Teich): 115.2 ml Ao root area: 8.0 cm2 LVPWd: 1.1 cm ESV(Teich): 49.5 ml EF(Teich): 57.1 % Doppler Measurements & Calculations MV E max saleem: MV dec slope: Ao V2 max: AI max saleem: 71.5 cm/sec 367.1 cm/sec2 63.6 cm/sec 328.1 cm/sec MV A max saleem: MV dec time: Ao max PG: AI max P.7 mmHg 71.8 cm/sec 0.19 sec 1.6 mmHg AI dec slope: MV E/A: 1.00 155.2 cm/sec2 AI P1/2t: 619.1 msec LV V1 max PG: MR max saleem: PA V2 max: PI end-d saleem: 1.8 mmHg 624.7 cm/sec 54.3 cm/sec 147.1 cm/sec LV V1 max: MR max PG: PA max P.6 cm/sec 156.1 mmHg 1.2 mmHg TR max saleem: 233.7 cm/sec TR max P.8 mmHg Left Ventricle The left ventricle is normal in size. There is moderate concentric left ventricular hypertrophy. Left ventricular systolic function is low normal. The Ejection Fraction estimate is 50-55%. LV diastolic function not assessed. Regional wall motion abnormalities cannot be excluded due to limited visualization. Right Ventricle The right ventricle is normal in size and function. Atria The right atrium is normal. The left atrium is mildly dilated. Mitral Valve There is mild mitral leaflet calcification. There is no mitral valve stenosis. There is a mild amount of mitral regurgitation. Aortic Valve The aortic valve is normal in structure and function. The aortic valve is trileaflet. The aortic valve opens well. There is no aortic valve stenosis. There is a trace amount of aortic regurgitation. Tricuspid Valve The tricuspid valve is normal in structure and function. There is a trace amount of tricuspid regurgitation. Doppler findings do not suggest pulmonary hypertension. Pulmonic Valve The pulmonic valve is not well seen, but is grossly normal. There is no pulmonic valvular stenosis. There is a trace amount of pulmonic regurgitation. Great Vessels The aortic root is normal size. The inferior vena cava was not well visualized. Effusions There is no pericardial effusion. : JOAO PATEL Anil
== END ==
LOC: SP 14:18
PROVIDERS: ATTEND Internal Medicine
DX: I10 Essential (primary) hypertension (principal); I95.1 Orthostatic hypotension; R42 Dizziness and giddiness
CPT/HCPCS: 93306

== ENCOUNTER 2020-02-19 17:50 | Inpatient (IN) | payer MEDICARE, OTHER ==
--- NOTE | 2020-02-19 18:31 | ER Document Report ---
ED Medical Screen (RME) - General Chief Complaint: Fall Injury Stated Complaint: FALL/RIGHT LEG PAIN Time Seen by Provider: 02/19/20 18:19 Primary Care Provider: JOAO PATEL MD [Primary Care Provider] - Follow up as needed TRAVEL OUTSIDE OF THE [place] IN LAST 30 DAYS: No - HPI Notes: Patient is a 74 y/o female who presents with right groin pain after a fall that occurred earlier this evening. Patient states she was coming out her grandson's room when she lost her balance and landed on her right side onto a mesh laundry basket and carpeted phu. She denies hitting her head or any loss of consciousness. She reports increased pain with walking. - Related Data Allergies/Adverse Reactions: sulfamethoxazole [From Bactrim] Allergy (Verified 10/05/16 16:01) Vomiting trimethoprim [From Bactrim] Allergy (Verified 10/05/16 16:01) Vomiting codeine phosphate [From Tylenol-Codeine] Adverse Reaction (Severe, Verified 10/05/16 16:01) Hallucinations Past Medical History - Past Medical History Cardiac Medical History: Reports: Hx Hypertension - r/t meds taken, not currently taking meds Denies: Hx Atrial Fibrillation, Hx Congestive Heart Failure, Hx Coronary Artery Disease, Hx Heart Attack, Hx Hypercholesterolemia, Hx Peripheral Vascular Disease, Hx Pulmonary Embolism, Hx Heart Murmur Pulmonary Medical History: Reports: Hx Bronchitis Denies: Hx Asthma, Hx COPD, Hx Pneumonia, Hx Respiratory Failure, Hx Sleep Apnea, Hx Tuberculosis Neurological Medical History: Renal/ Medical History: Reports: Hx Ovarian Cysts - 1999. Denies: Hx End Stage Renal Disease - had been as low as 20% function r/t meds, Hx Kidney Stones, Hx Peritoneal Dialysis, Hx Pelvic Inflammatory Disease Malignancy Medical History: Denies: Hx Breast Cancer, Hx Cervical Cancer, Hx Leukemia, Hx Lung Cancer, Hx Ovarian Cancer GI Medical History: Reports: Hx Hiatal Hernia. Denies: Hx Crohn's Disease, Hx Gastroesophageal Reflux Disease, Hx Irritable Bowel, Hx Liver Failure, Hx Panc reatitis, Hx Ulcer Musculoskeltal Medical History: Reports Hx Arthritis, Denies Hx Fibromyalgia, Denies Hx Muscular Dystrophy, Reports Hx Musculoskeletal Trauma Traumatic Medical History: Reports: Hx Fractures - 2016 left humerus,rt arm 2007,ribs fx 2000 Infectious Medical History: Denies: Hx HIV Past Surgical History: Reports: Hx Orthopedic Surgery - foot, knee, Lshoulder replacment 05/2015. Denies: Hx Appendectomy, Hx Bowel Surgery, Hx Section, Hx Cholecystectomy, Hx Colostomy, Hx Coronary Artery Bypass Graft, Hx Gastric Bypass Surgery, Hx Herniorrhaphy, Hx Hysterectomy, Hx Mastectomy, Hx Pacemaker, Hx Tonsillectomy, Hx Tubal Ligation - Immunizations Hx Diphtheria, Pertussis, Tetanus Vaccination: Yes Physical Exam - Vital signs Vitals: Temp Pulse Resp BP Pulse Ox 98.1 F 104 H 18 119/81 92 02/19/20 18:09 02/19/20 18:09 02/19/20 18:02/19/20 18:09 02/19/20 18:09 - Extremities Hip: Tender, Other - Exam limited due to seated position in wheelchair in triage Course - Re-evaluation Re-evalutation: I have greeted and performed a rapid initial assessment of this patient. A comprehensive ED assessment and evaluation of the patient, analysis of test results and completion of medical decision making process will be conducted by an additional ED providers. - Vital Signs Vital signs: Temp Pulse Resp BP Pulse Ox 98.1 F 104 H 18 119/81 92 02/19/20 18:09 02/19/20 18:02/19/20 18:02/19/20 18:02/19/20 18:09 Doctor's Discharge - Discharge Referrals: JOAO PATEL MD [Primary Care Provider] - Follow up as needed
--- NOTE | 2020-02-19 19:00 | RADIOLOGY REPORT (SQ) ---
EXAM DESCRIPTION: FEMUR RIGHT; HIP RIGHT AP/LATERAL IMAGES COMPLETED DATE/TIME: 02/19/2020 6:49 pm REASON FOR STUDY: fall, right hip pain COMPARISON: None. FINDINGS: Two views pelvis and right hip: Subcapital femoral neck fracture with shortening. Osteop enic. Pelvis otherwise appears to be intact. Two views right femur: Four views total. Osteopenic. No other fracture detected. TECHNICAL DOCUMENTATION: JOB ID: [id number] Reading location - IP/workstation name: [email or web address]
--- NOTE | 2020-02-19 19:00 | RADIOLOGY REPORT (SQ) ---
EXAM DESCRIPTION: FEMUR RIGHT; HIP RIGHT AP/LATERAL IMAGES COMPLETED DATE/TIME: 02/19/2020 6:49 pm REASON FOR STUDY: fall, right hip pain COMPARISON: None. FINDINGS: Two views pelvis and right hip: Subcapital femoral neck fracture with shortening. Osteop enic. Pelvis otherwise appears to be intact. Two views right femur: Four views total. Osteopenic. No other fracture detected. TECHNICAL DOCUMENTATION: JOB ID: [id number] Reading location - IP/workstation name: [email or web address]
[2020-02-19] MEDS ORDERED: MORPHINE SULFATE 10 MG/ML INJ IV ONE (19:07)
[2020-02-19] MEDS ORDERED: ONDANSETRON HCL INJ/PF 4 MG/2 ML SDV IV ONE (20:16)
--- NOTE | 2020-02-19 20:20 | ER Document Report ---
ED Fall - General Chief Complaint: Fall Injury Stated Complaint: FALL/RIGHT LEG PAIN Time Seen by Provider: 02/19/20 18:19 Notes: Patient is a 74-year-old female that comes emergency department from home for chief complaint of left a fall and landing on her right hip area. She states she fell in the evening, she states that she suddenly lost her balance while she was walking, she landed on her right side, onto a carpeted floor and mesh laun dry basket. She denies hitting her head, neck pain, focal numbness or weakness, incontinence, chest pain, or any at the areas of pain except the right hip and groin. She is not on a blood thinner. She states she had a left hip fracture with hip replacement in July of this year already. She lives at home with her family. Past medical history of hypertension, hyperlipidemia, GERD. TRAVEL OUTSIDE OF THE [place] IN LAST 30 DAYS: No - Related data Allergies/Adverse Reactions: sulfamethoxazole [From Bactrim] Allergy (Verified 10/05/16 16:01) Vomiting trimethoprim [From Bactrim] Allergy (Verified 10/05/16 16:01) Vomiting codeine phosphate [From Tylenol-Codeine] Adverse Reaction (Severe, Verified 10/05/16 16:01) Hallucinations Past Medical History - General Information source: Patient - Social History Smoking Status: Never Smoker Frequency of alcohol use: None Drug Abuse: None Lives with: Family Family History: None, Other - Father with congestive heart failure in his 70s, her daughter had congestive heart failure - Past Medical History Cardiac Medical History: Reports: Hx Hypercholesterolemia, Hx Hypertension - r/t meds taken, not currently taking meds Denies: Hx Atrial Fibrillation, Hx Congestive Heart Failure, Hx Coronary Artery Disease, Hx Heart Attack, Hx Peripheral Vascular Disease, Hx Pulmonary Embolism, Hx Heart Murmur Pulmonary Medical History: Reports: Hx Bronchitis Denies: Hx Asthma, Hx COPD, Hx Pneumonia, Hx Respiratory Failure, Hx Sleep Apnea, Hx Tuberculosis Neurological Medical History: Renal/ Medical History: Reports: Hx Ovarian Cysts - 1999. Denies: Hx End Stage Renal Disease - had been as low as 20% function r/t meds, Hx Kidney Stones, Hx Peritoneal Dialysis, Hx Pelvic Inflammatory Disease Malignancy Medical History: Denies: Hx Breast Cancer, Hx Cervical Cancer, Hx Leukemia, Hx Lung Cancer, Hx Ovarian Cancer GI Medical History: Reports: Hx Hiatal Hernia. Denies: Hx Crohn's Disease, Hx Gastroesophageal Reflux Disease, Hx Irritable Bowel, Hx Liver Failure, Hx Pancreatitis, Hx Ulcer Musculoskeletal Medical History: Reports Hx Arthritis, Denies Hx Fibromyalgia, Denies Hx Muscular Dystrophy, Reports Hx Musculoskeletal Trauma Traumatic Medical History: Reports: Hx Fractures - 2016 left humerus,rt arm 2007,ribs fx 2001 Infectious Medical History: Denies: Hx HIV Past Surgical History: Reports: Hx Orthopedic Surgery - foot, knee, Lshoulder replacment 05/2015. Denies: Hx Appendectomy, Hx Bowel Surgery, Hx Section, Hx Cholecystectomy, Hx Colostomy, Hx Coronary Artery Bypass Graft, Hx Gastric Bypass Surgery, Hx Herniorrhaphy, Hx Hysterectomy, Hx Mastectomy, Hx Pacemaker, Hx Tonsillectomy, Hx Tubal Ligation - Immunizations Hx Diphtheria, Pertussis, Tetanus Vaccination: Yes Hx Pneumococcal Vaccination: 12/09/15 Review of Systems - Review of Systems Constitutional: No symptoms reported EENT: No symptoms reported Cardiovascular: No symptoms reported Respiratory: No symptoms reported Gastrointestinal: No symptoms reported Genitourinary: No symptoms reported Female Genitourinary: No symptoms reported Musculoskeletal: See HPI Skin: No symptoms reported Hematologic/Lymphatic: No symptoms reported Neurological/Psychological: No symptoms reported Physical Exam - Vital signs Vitals: Temp Pulse Resp BP Pulse Ox 98.1 F 104 H 18 119/81 92 02/19/20 18:09 02/19/20 18:09 02/19/20 18:09 02/19/20 18:09 02/19/20 18:09 - Notes Notes: GENERAL: Patient appears to be in some pain but she is alert, interactive, cooperative HEAD: Normocephalic, atraumatic. EYES: Pupils equal, round, and reactive to light. Extraocular movements intact. ENT: Oral mucosa moist, tongue midline. Oropharynx unremarkable. Airway patent. NECK: Full range of motion. Supple. Trachea midline. No lymphadenopathy. LUNGS: Clear to auscultation bilaterally, no wheezes, rales, or rhonchi. No respiratory distress. Non-tender chest wall. No signs of trauma. HEART: Regular rate and rhythm. No murmur ABDOMEN: Soft, non-tender. Non-distended. EXTREMITIES: Very tender in the right groin/hip area with limited ability to move the right leg. Normal distal neurovascular exam. Remaining extremity exam is unremarkable. BACK: No signs of trauma. No cervical, thoracic, lumbar midline tenderness. No saddle anesthesia, normal distal neurovascular exam. NEUROLOGICAL: Alert and oriented x3. Normal speech. Cranial nerves II through XII grossly intact. PSYCH: Normal affect, normal mood. SKIN: Warm, dry, normal turgor. No rashes or lesions noted. Course - Re-evaluation Re-evalutation: Patient with pain over the right hip which is very significant concerning for fracture. No neurovascular deficit. No other reported injuries from the fall, no other injuries noted. Remaining evaluation without any concerning findings. Imaging shows fracture of the right femoral neck. This also shows left hip replacement, imaging of the chest shows humeral ORIF, chest x-ray unremarkable otherwise. Obtaining preop lab work, placing Webber, patient has been provided with pain medication is much more comfortable. I discussed findings with patient and family, discussed admission and surgery plans. They state understanding and agreement. Called and spoke with Dr. Langley, orthopedic surgeon, he states he will be happy to consult on the patient to perform the surgery and he requests any preop be completed so he can have this done this morning, I called and spoke with Dr. Engel and relayed this message, Dr. Engel accepted to the hospital under hospitalist service because of patient's age. - Vital Signs Vital signs: Temp Pulse Resp BP Pulse Ox 98.8 F 106 H 14 116/76 93 02/20/20 01:14 02/20/20 01:14 02/20/20 01:14 02/20/20 01:14 02/20/20 01:14 - Laboratory Results Result Diagrams: 02/19/20 20:25 02/19/20 20:25 Laboratory Results Interpreted: 02/19/20 02/19/20 20:25 20:25 WBC 16.0 H RDW 15.9 H Seg Neuts % (Manual) 90 H Lymphocytes % (Manual) 5 L Abs Neuts (Manual) 14.4 H Glucose 111 H Alkaline Phosphatase 131 H Critical Laboratory Results Reviewed: No Critical Results - Radiology Results Critical Radiology Results Reviewed: No Critical Results - EKG Interpretation by Me Additional EKG results interpreted by me: EKG shows sinus tachycardia at a rate of 119, QTc 406, PVCs present. Borderline T wave inversions in lateral leads, no ST segment changes in consecutive leads. Discharge - Discharge Clinical Impression: Fall Qualifiers: Encounter type: initial encounter Qualified Code(s): W19.XXXA - Unspecified fall, initial encounter Closed right hip fracture Qualifiers: Encounter type: initial encounter Qualified Code(s): S72.001A - Fracture of unspecified part of neck of right femur, initial encounter for closed fracture Condition: Stable Disposition: ADMITTED INPATIENT Admitting Provider: Unit Admitted: Medical Floor
[2020-02-19 20:36] LABS: HEMATOCRIT 41.7 % (36.0-47.0); HEMOGLOBIN 13.4 g/dL (12.0-15.5); MEAN CORPUSCULAR HEMOGLOBIN 28.9 pg (27.0-33.4); MEAN CORPUSCULAR HGB CONC 32.2 g/dL (32.0-36.0); MEAN CORPUSCULAR VOLUME 90 fl (80-97); PLATELET COUNT 186 10^3/uL (150-450); RED BLOOD COUNT 4.63 10^6/uL (3.72-5.28); RED CELL DISTRIBUTION WIDTH 15.9 % (11.5-14.0)
[2020-02-19 20:50] LABS: INTERNATIONAL RATION (INR) 1.06
[2020-02-19 20:51] LABS: PARTIAL THROMBOPLASTIN TIME 26.4 SEC (23.5-35.8)
[2020-02-19 21:00] LABS: ALKALINE PHOSPHATASE 131 U/L (38-126); ANION GAP 7 (5-19); ASPARTATE AMINO TRANSFERASE 33 U/L (14-36); BILIRUBIN,DIRECT 0.1 mg/dL (0.0-0.4); BILIRUBIN,TOTAL 0.5 mg/dL (0.2-1.3); BLOOD UREA NITROGEN 20 mg/dL (7-20); CALCIUM 9.1 mg/dL (8.4-10.2); CARBON DIOXIDE 26 mmol/L (22-30); CHLORIDE 106 mmol/L (98-107); GLUCOSE 111 mg/dL (75-110); TOTAL PROTEIN 7.4 g/dL (6.3-8.2)
[2020-02-19 21:04] LABS: ABSOLUTE LYMPHOCYTES# (MANUAL) 0.8 10^3/uL (0.5-4.7); ABSOLUTE MONOCYTES # (MANUAL) 0.8 10^3/uL (0.1-1.4); BASOPHILS % (MANUAL) 0 % (0-2); EOSINOPHILS % (MANUAL) 0 % (0-6); LYMPHOCYTES % (MANUAL) 5 % (13-45); MONOCYTES % (MANUAL) 5 % (3-13); PLATELET COMMENT ADEQUATE; SEGMENTED NEUTROPHILS % (MAN) 90 % (42-78); TOTAL CELLS COUNTED 100
[2020-02-19 21:05] LABS: HYPERSEGMENTED NEUTROPHILS PRESENT; TOXIC VACUOLATION PRESENT
[2020-02-19 21:06] LABS: OVALOCYTES 1+
[2020-02-19 21:07] LABS: BURR CELLS 1+
[2020-02-19 21:08] LABS: ANISOCYTOSIS SLIGHT; POIKILOCYTOSIS 1+; RBC MORPHOLOGY COMMENT NORMO-CYTIC/CHROMIC
--- NOTE | 2020-02-19 21:31 | RADIOLOGY REPORT (SQ) ---
EXAM DESCRIPTION: XR CHEST 1 VIEW COMPLETED DATE/TME: 02/19/2020 20:36 CLINICAL HISTORY: 74 years, Female, pre-op COMPARISON: None. NUMBER OF VIEWS: 1 TECHNIQUE: Portable chest LIMITATIONS: None. FINDINGS: Heart size is normal. Mild elevation of the right hemidiaphragm. Osteopenia. Postsurgical change left humerus. Circular density in the region of the epigastric region, correlate with surgical history. Lungs are clear. No pneumothorax. Mild elevation of the right hemidiaphragm IMPRESSION: No acute cardiopulmonary process. copyright 2010 [employer] [employer]- All Rights Reserved
[2020-02-19] MEDS ORDERED: ONDANSETRON HCL INJ/PF 4 MG/2 ML SDV IV PRN (22:01)
[2020-02-19] MEDS ORDERED: DEXTROSE 40% GEL 15 GM TUBE PO PRN ×2 (22:01)
[2020-02-19] MEDS ORDERED: GLUCAGON,HUMAN RECOMB 1 MG INJ SUBCUT PRN (22:01)
[2020-02-19] MEDS ORDERED: DEXTROSE 50%-WATER 25 GM/50 ML DISP.SYRIN IV PRN ×2 (22:01)
--- NOTE | 2020-02-19 22:25 | PDOC H&P ---
History of Present Illness Admission Date/PCP: 02/19/20 21:25 FELIZ HICKS MD Patient complains of: Fell History of Present Illness: THADDEUS PILLAI is a 74 year old female The patient fell at home, lost her balance. She fell on her right hip area. She suffered a right subcapital femoral neck fracture. Dr. Langley, orthopedic surgery was contacted by the emergency department provider. He is planning surgery for the morning unless there is medical contraindication. Beside right hip area pain the patient does not have any other complaint. I noticed his right lower extremity, especially the right calf is swollen. She says she has the swelling for about a week now. She has a superficial healing laceration on the lateral right lower leg. No shortness of breath, no chest pain. Past Medical History Cardiac Medical History: Reports: Hypertension - Blood pressure medication lowered her blood pressure too much, it was stopp Denies: Atrial Fibrillation, Congestive Heart Failure, Coronary Artery Disease, Myocardial Infarction, Hyperlipidema, Peripheral Vascular Disease, Pulmonary Embolism, Heart Murmur Pulmonary Medical History: Reports: Bronchitis Denies: Asthma, Chronic Obstructive Pulmonary Disease (COPD), Pneumonia, Respiratory Failure, Sleep Apnea, Tuberculosis Neurological Medical History: Endocrine Medical History: Reports: None Renal/ Medical History: Reports: None Malignancy Medical History: Reports: None Denies: Breast Cancer, Cervical Cancer, Leukemia, Lung Cancer, Ovarian Cancer GI Medical History: Reports: Gastroesophageal Reflux Disease, Hiatal Hernia Denies: Crohn's Disease Musculoskeltal Medical History: Reports: Arthritis - Rheumatoid arthritis, osteoarthritis, Other - Severe osteoporosis Denies: Fibromyalgia Psychiatric Medical History: Reports: None Hematology: Reports: Anemia - iron infusion 05/24/15 Denies: Hemophilia, Sickle Cell Disease Infectious Medical History: Reports: None Denies: HIV Past Surgical History Past Surgical History: Reports: Orthopedic Surgery - Left shoulder, hip, knee replacement Denies: Amputation, Appendectomy, Section, Cholecystectomy, Colostomy, Coronary Artery Bypass Graft, Gastric Bypass Surgery, Herniorrhaphy, Hysterectomy, Mastectomy, Pacemaker, Tonsillectomy, Tubal Ligation Social History Lives with: Family Smoking Status: Never Smoker Electronic Cigarette use?: No Frequency of Alcohol Use: Rare Hx Recreational Drug Use: No Drugs: None Hx Prescription Drug Abuse: No Family History Family History: CAD, Malignancy - Some form of cancer in few family members, she does not know details., Other - Father with congestive heart failure in his 70s, her daughter had congestive heart failure Parental Family History Reviewed: Yes Children Family History Reviewed: Yes Sibling(s) Family History Reviewed.: Yes Medication/Allergy Home Medications: Abatacept [Orencia Clickject] 125 mg [id number] 04/24/17 Metoclopramide HCl [Reglan Oral Soln 10 mg/10 ml Udcup] 10 mg PO ACHS 04/24/17 Metoprolol Succinate [Toprol Xl 25 mg Tab.sr] 25 mg PO DAILY 04/24/17 Prednisone [Deltasone 5 mg Tablet] 5 mg PO DAILY 04/24/17 Sucralfate [Carafate Susp 1 Gm/10 Ml Udcup] 1 gm PO ACHS 04/24/17 Tramadol HCl [Ultram 50 mg Tablet] 50 mg PO Q6HP PRN 04/24/17 Lisinopril [Prinivil] 5 mg PO DAILY #10 tablet 10/07/19 Allergies/Adverse Reactions: sulfamethoxazole [From Bactrim] Allergy (Verified 10/05/16 16:01) Vomiting trimethoprim [From Bactrim] Allergy (Verified 10/05/16 16:01) Vomiting codeine phosphate [From Tylenol-Codeine] Adverse Reaction (Severe, Verified 16:01) Hallucinations Review of Systems Constitutional: PRESENT: weakness Eyes: ABSENT: visual disturbances Ears: ABSENT: hearing changes Cardiovascular: ABSENT: chest pain, dyspnea on exertion, edema, orthropnea, palpitations Respiratory: ABSENT: cough, hemoptysis Gastrointestinal: ABSENT: abdominal pain, constipation, diarrhea, hematemesis, hematochezia, nausea, vomiting Genitourinary: ABSENT: dysuria, hematuria Musculoskeletal: PRESENT: other - Chronic musculoskeletal pain Integumentary: PRESENT: wounds - Healing laceration lateral aspect right lower leg Neurological: ABSENT: abnormal gait, abnormal speech, confusion, dizziness, focal weakness, syncope Hematologic/Lymphatic: ABSENT: easy bleeding, easy bruising Physical Exam Vital Signs: Temp Pulse Resp BP Pulse Ox 98.1 F 104 H 18 119/81 92 02/19/20 18:09 02/19/20 18:09 02/19/20 18:09 02/19/20 18:09 02/19/20 18:09 Intake & Output 02/18/20 02/19/20 02/20/20 06:59 06:59 06:59 Weight 60.2 kg General appearance: PRESENT: mild distress Head exam: PRESENT: atraumatic Eye exam: PRESENT: conjunctiva pink, EOMI, PERRLA. ABSENT: scleral icterus Neck exam: ABSENT: carotid bruit, JVD, lymphadenopathy, thyromegaly Respiratory exam: PRESENT: clear to auscultation lobito. ABSENT: rales, rhonchi, wheezes Cardiovascular exam: PRESENT: tachycardia, other - No murmur or gallop Pulses: PRESENT: normal dorsalis pedis pul Extremities exam: PRESENT: other - Right calf is swollen compared to left. No significant calf tenderness. Pulses palpable. About 3 cm long healing laceration lateral aspect right lower leg Musculoskeletal exam: PRESENT: ambulatory Neurological exam: PRESENT: alert, awake, oriented to person, oriented to place, oriented to time, oriented to situation, CN II-XII grossly intact. ABSENT: motor sensory deficit Psychiatric exam: PRESENT: anxious Results Laboratory Results: 02/19/20 20:25 02/19/20 20:25 02/19/20 02/19/20 20:25 20:25 WBC 16.0 H RBC 4.63 Hgb 13.4 Hct 41.7 MCV 90 MCH 28.9 MCHC 32.2 RDW 15.9 H Plt Count 186 Seg Neutrophils % Not Reportable Sodium 139.3 Potassium 4.0 Chloride 106 Carbon Dioxide 26 Anion Gap 7 BUN 20 Creatinine 0.83 Est GFR ( Amer) > 60 Glucose 111 H Calcium 9.1 Total Bilirubin 0.5 AST 33 Alkaline Phosphatase 131 H Total Protein 7.4 Albumin 4.0 Impressions: Chest X-Ray 02/19/20 20:16 IMPRESSION: No acute cardiopulmonary process. copyright 2010 [email or web address]- All Rights Reserved Assessment and Plan - Diagnosis (1) Closed right hip fracture Qualifiers: Encounter type: initial encounter Qualified Code(s): S72.001A - Fracture of unspecified part of neck of right femur, initial encounter for closed fracture Is this a current diagnosis for this admission?: Yes Plan: Patient is scheduled for surgery in the morning. There is no medical contraindication of surgery. No additional testing needed. Pain control. SCD device. Pharmacological DVT prophylaxis after surgery. (2) Right leg swelling Is this a current diagnosis for this admission?: Yes Plan: She has some swelling of the right lower extremity but venous Doppler ultrasound examination was negative for DVT. - Plan Summary Summary: Patient was admitted with right hip fracture. She has sinus tachycardia secondary to pain and discomfort. Her cardiovascular and respiratory status are stable. She has right calf swelling but she does not have DVT. There is no medical contraindication for surgery in the morning. No additional preoperative testing needed. - Time Time Spent with patient: 25-34 minutes Medications reviewed and adjusted accordingly: Yes Anticipated Discharge Disposition: [facility] - For inpatient rehabilitation Anticipated Discharge Timeframe: within 72 hours - Inpatient Certification Based on my medical assessment, after consideration of the patient's c omorbidities, presenting symptoms, or acuity I expect that the services needed warrant INPATIENT care.: Yes I certify that my determination is in accordance with my understanding of Medicare's requirements for reasonable and necessary INPATIENT services [42 CFR 412.3e].: Yes Medical Necessity: Need for Surgery
[2020-02-19] MEDS: GABAPENTIN 100 MG CAPSULE PO SCH (23:22)
[2020-02-19] MEDS: MELATONIN 3 MG TABLET PO SCH (23:22)
--- NOTE | 2020-02-19 23:33 | RADIOLOGY REPORT (SQ) ---
EXAM DESCRIPTION: VENOUS UNILATERAL LOWER [employer]: US EXTREMITY VEINS UNILATERAL CLINICAL HISTORY: 74 years Female; 1 week R leg swelling TECHNIQUE: Multiple grayscale sonographic images of the leg were obtained utilizing a high-frequency linear array transducer supplemented with color Doppler, compression and augmentation techniques. COMPARISON: None. FINDINGS: Right leg veins: Common femoral: normal Greater saphenous: normal upper Superficial femoral: normal mid Superficial femoral: normal lower Superficial femoral: normal Popliteal: Could not be imaged due to current patient condition. Posterior tibial: Limited evaluation due to current patient condition. IMPRESSION: 1. No sonographic evidence for right lower extremity deep venous thrombosis.
[2020-02-20] MEDS: POTASSI CL 20 MEQ/NS 1L 1,000 ML IV PRN ×2 (00:40→16:51)
[2020-02-20] MEDS: MORPHINE SULFATE 10 MG/ML INJ IV PRN ×5 (00:44→20:32)
[2020-02-20] MEDS: ACETAMINOPHEN 325 MG TABLET PO PRN ×4 (01:40→22:03)
[2020-02-20] MEDS: GABAPENTIN 100 MG CAPSULE PO SCH ×3 (06:17→22:03)
[2020-02-20 07:25] LABS: ABSOLUTE BASOPHILS # (AUTO) 0.1 10^3/uL (0.0-0.2); ABSOLUTE EOSINOPHILS # (AUTO) 0.2 10^3/uL (0.0-0.6); ABSOLUTE LYMPHOCYTES (AUTO) 1.2 10^3/uL (0.5-4.7); ABSOLUTE MONOCYTES (AUTO) 0.9 10^3/uL (0.1-1.4); ABSOLUTE NEUT (AUTO) 8.5 10^3/uL (1.7-8.2); BASOPHILS % (AUTO) 0.5 % (0-2); EOSINOPHILS % (AUTO) 2.3 % (0-6); HEMATOCRIT 36.6 % (36.0-47.0); HEMOGLOBIN 11.9 g/dL (12.0-15.5); MEAN CORPUSCULAR HEMOGLOBIN 28.8 pg (27.0-33.4); MEAN CORPUSCULAR HGB CONC 32.4 g/dL (32.0-36.0); MEAN CORPUSCULAR VOLUME 89 fl (80-97); MONOCYTES % (AUTO) 8.1 % (3-13); PLATELET COUNT 142 10^3/uL (150-450); RED BLOOD COUNT 4.11 10^6/uL (3.72-5.28); RED CELL DISTRIBUTION WIDTH 15.8 % (11.5-14.0); SEGMENTED NEUTROPHILS % (AUTO) 78.1 % (42-78); TOTAL CELLS COUNTED % (AUTO) 100 %; WHITE BLOOD COUNT 10.8 10^3/uL (4.0-10.5)
[2020-02-20 07:49] LABS: BLOOD UREA NITROGEN 24 mg/dL (7-20); CALCIUM 8.5 mg/dL (8.4-10.2); CARBON DIOXIDE 27 mmol/L (22-30); CHLORIDE 108 mmol/L (98-107); GLUCOSE 106 mg/dL (75-110); POTASSIUM 4.6 mmol/L (3.6-5.0)
[2020-02-20 07:59] LABS: ANION GAP 4 (5-19)
--- NOTE | 2020-02-20 08:21 | PDOC CONSULTATION ---
Consultation Consult Date: 02/20/20 Attending physician:: DIPIKA ROSALES Provider Consulted: INOCENCIA WELLS Consult reason:: Right femoral neck fracture History of Present Illness Admission Date/PCP: 02/19/20 21:25 FELIZ HICKS MD Patient complains of: Right hip pain History of Present Illness: THADDEUS PILLAI is a 74 year old female with rheumatoid arthritis. The patient reports that she simply lost her balance and sustained a fall from a standing height resulting in a fracture of her right femoral neck. She has sustained a left femoral neck fracture earlier this year and underwent hemiarthroplasty at [facility]. The patient also has a history of left proximal humerus fracture. She relates that she is recently undergone a DEXA scan which revealed significant osteopenia. Past Medical History Cardiac Medical History: Reports: Hyperlipidema, Hypertension - r/t meds taken, not currently taking meds Denies: Atrial Fibrillation, Congestive Heart Failure, Coronary Artery Disease, Myocardial Infarction, Peripheral Vascular Disease, Pulmonary Embolism, Heart Murmur Pulmonary Medical History: Reports: Bronchitis Denies: Asthma, Chronic Obstructive Pulmonary Disease (COPD), Pneumonia, Respiratory Failure, Sleep Apnea, Tuberculosis Neurological Medical History: Endocrine Medical History: Reports: None Renal/ Medical History: Reports: None Denies: End Stage Renal Disease - had been as low as 20% function r/t meds Malignancy Medical History: Reports: None Denies: Breast Cancer, Cervical Cancer, Leukemia, Lung Cancer, Ovarian Cancer GI Medical History: Reports: Hiatal Hernia Denies: Crohn's Disease, Gastroesophageal Reflux Disease Musculoskeltal Medical History: Reports: Arthritis, Other - Severe osteoporosis Denies: Fibromyalgia Psychiatric Medical History: Reports: None Denies: Depression Hematology: Reports: Anemia - iron infusion 05/24/15 Denies: Hemophilia, Sickle Cell Disease Infectious Medical History: Reports: None Denies: HIV Past Surgical History Past Surgical History: Reports: Orthopedic Surgery - foot, knee, Lshoulder replacment 05/2015, left hip hemiarthroplasty Denies: Amputation, Appendectomy, Section, Cholecystectomy, Colostomy, Coronary Artery Bypass Graft, Gastric Bypass Surgery, Herniorrhaphy, Hysterectomy, Mastectomy, Pacemaker, Tonsillectomy, Tubal Ligation Social History Lives with: Family Smoking Status: Never Smoker Electronic Cigarette use?: No Frequency of Alcohol Use: Rare Hx Recreational Drug Use: No Drugs: None Hx Prescription Drug Abuse: No Family History Family History: None, Other - Father with congestive heart failure in his 70s, her daughter had congestive heart failure Parental Family History Reviewed: Yes Children Family History Reviewed: Yes Sibling(s) Family History Reviewed.: No Medication/Allergy Home Medications: Abatacept [Orencia Clickject] 125 mg [id number] 04/24/17 Metoclopramide HCl [Reglan Oral Soln 10 mg/10 ml Udcup] 10 mg PO ACHS 04/24/17 Metoprolol Succinate [Toprol Xl 25 mg Tab.sr] 25 mg PO DAILY 04/24/17 Prednisone [Deltasone 5 mg Tablet] 5 mg PO DAILY 04/24/17 Sucralfate [Carafate Susp 1 Gm/10 Ml Udcup] 1 gm PO ACHS 04/24/17 Tramadol HCl [Ultram 50 mg Tablet] 50 mg PO Q6HP PRN 04/24/17 Lisinopril [Prinivil] 5 mg PO DAILY #10 tablet 10/07/19 Allergies/Adverse Reactions: sulfamethoxazole [From Bactrim] Allergy (Verified 10/05/16 16:01) Vomiting trimethoprim [From Bactrim] Allergy (Verified 10/05/16 16:01) Vomiting codeine phosphate [From Tylenol-Codeine] Adverse Reaction (Severe, Verified 10/05/16 16:01) Hallucinations Review of Systems ROS unobtainable: Other - As per HPI Physical Exam Vital Signs: Temp Pulse Resp BP Pulse Ox 98.3 F 97 16 103/60 95 02/20/20 04:06 02/20/20 04:06 02/20/20 04:06 02/20/20 04:06 02/20/20 04:06 Intake & Output 02/19/20 02/20/20 02/21/20 06:59 06:59 06:59 Intake Total 15 Output Total 50 Balance -35 Weight 60 kg General appearance: PRESENT: no acute distress, thin Head exam: PRESENT: atraumatic, normocephalic Eye exam: PRESENT: conjunctiva pink, EOMI, PERRLA. ABSENT: scleral icterus Mouth exam: PRESENT: moist, tongue midline Neck exam: PRESENT: full ROM Respiratory exam: PRESENT: clear to auscultation lobito. ABSENT: rales, rhonchi, wheezes Cardiovascular exam: PRESENT: RRR. ABSENT: diastolic murmur, rubs, systolic murmur GI/Abdominal exam: PRESENT: normal bowel sounds, soft. ABSENT: distended, guarding, mass, organolmegaly, rebound, tenderness Rectal exam: PRESENT: deferred Musculoskeletal exam: PRESENT: other - There is discomfort with any motion of th e right hip. There is relatively normal clinical alignment of the extremity. The patient is able to dorsiflex and plantarflex her foot. Sensation is intact to touch. 1+ PT and 2+ DP pulses are palpable. Neurological exam: PRESENT: alert, awake, oriented to person, oriented to place, oriented to time, oriented to situation, CN II-XII grossly intact. ABSENT: motor sensory deficit Results Laboratory Results: 02/20/20 06:52 02/20/20 06:52 02/19/20 02/19/20 02/20/20 20:25 20:25 06:52 WBC 16.0 H 10.8 H RBC 4.63 4.11 Hgb 13.4 11.9 L Hct 41.7 36.6 MCV 90 89 MCH 28.9 28.8 MCHC 32.2 32.4 RDW 15.9 H 15.8 H Plt Count 186 142 L Seg Neutrophils % Not Reportable 78.1 H Sodium 139.3 Potassium 4.0 Chloride 106 Carbon Dioxide 26 Anion Gap 7 BUN 20 Creatinine 0.83 Est GFR ( Amer) > 60 Glucose 111 H Calcium 9.1 Total Bilirubin 0.5 AST 33 Alkaline Phosphatase 131 H Total Protein 7.4 Albumin 4.0 02/20/20 06:52 WBC RBC Hgb Hct MCV MCH MCHC RDW Plt Count Seg Neutrophils % Sodium 139.0 Potassium 4.6 Chloride 108 H Carbon Dioxide 27 Anion Gap 4 L BUN 24 H Creatinine 0.93 Est GFR ( Amer) > 60 Glucose 106 Calcium 8.5 Total Bilirubin AST Alkaline Phosphatase Total Protein Albumin Impressions: Chest X-Ray 02/19/20 20:16 IMPRESSION: No acute cardiopulmonary process. copyright 2011 [employer]- All Rights Reserved Venous Doppler Study 02/19/20 21:54 IMPRESSION: 1. No sonographic evidence for right lower extremity deep venous thrombosis. Assessment & Plan - Diagnosis (1) Left hip pain Is this a current diagnosis for this admission?: Yes (2) Subcapital fracture of left hip Qualifiers: Encounter type: initial encounter - Time Time Spent: 30 to 50 Minutes Anticipated discharge: SNF Anticipated DC Timeframe: within 72 hours - Plan Summary Plan Summary: The patient is a pleasant 74-year-old woman with rheumatoid arthritis and osteopenia. She sustained a fall from a standing height yesterday resulting in a displaced right femoral neck fracture. I have recommended right hip hemiarthroplasty. Risk, benefits, and alternatives were discussed with the patient. Risks include the risk of with anesthesia, the risk of infection, the risk of injury to nerves and vessels, the risk of fracture, the risk of dislocation, and the possible need for additional surgical procedures. The patient expressed understanding and wishes to proceed with surgery.
[2020-02-20] MEDS ORDERED: CEFAZOLIN SODIUM 2 GM in DEXTROSE 5%-WATER 100 ML IV PRN (09:59)
[2020-02-20] MEDS ORDERED: TRANEXAMIC ACID INJ/PF 1,000 MG/10 ML SDV IV PRN (10:01)
--- NOTE | 2020-02-20 17:39 | PDOC PROGRESS REPORT ---
Subjective Subjective:: Per Previous Physician: "THADDEUS PILLAI is a 74 year old female The patient fell at home, lost her balance. She fell on her right hip area. She suffered a right subcapital femoral neck fracture. Dr. Langley, orthopedic surgery was contacted by the emergency department provider. He is planning surgery for the morning unless there is medical contraindication. Beside right hip area pain the patient does not have any other complaint. I noticed his right lower extremity, especially the right calf is swollen. She says she has the swelling for about a week now. She has a superficial healing laceration on the lateral right lower leg. No shortness of breath, no chest pain." 02/20/2020 Patient states she is still having some significant right hip pain as expected from her recent fall with hip fracture. Orthopedic surgery is reportedly delayed her surgery until tomorrow. Patient's Covid testing as well as in fluenza and RSV are all negative. Other labs reviewed and are acceptable. Patient will need at least 1 month of DVT prophylaxis after hip repair. Guidelines recommend heparin versus Lovenox versus NOAC. Orthopedic surgery following. Reason For Visit: FALL, CLOSED RIGHT HIP FRACTURE Physical Exam Vital Signs: Temp Pulse Resp BP Pulse Ox 97.5 F 85 20 111/72 99 02/20/20 15:00 02/20/20 15:00 02/20/20 15:00 02/20/20 15:00 02/20/20 15:00 Intake & Output 02/19/20 02/20/20 02/21/20 06:59 06:59 06:59 Intake Total 15 1000 Output Total 50 Balance -35 1000 Weight 60 kg Exam: General appearance: PRESENT: no acute distress, well-developed, well-nourished, thin and frail appearing elderly white female Head exam: PRESENT: atraumatic, normocephalic Eye exam: PRESENT: conjunctiva pink. ABSENT: scleral icterus Mouth exam: PRESENT: moist Respiratory exam: PRESENT: clear to auscultation lobito. ABSENT: rales, rhonchi, wheezes Cardiovascular exam: PRESENT: RRR. ABSENT: diastolic murmur, rubs, systolic murmur GI/Abdominal exam: PRESENT: normal bowel sounds, soft. ABSENT: distended, guarding, mass, organolmegaly, rebound, tenderness Neurological exam: PRESENT: alert, awake, oriented to person, oriented to place, oriented to time, oriented to situation Psychiatric exam: PRESENT: appropriate affect, normal mood Skin exam: PRESENT: dry, intact, warm Musculoskeletal: Significant right hip pain with movement and palpation, externa lly rotated right lower extremity Results Laboratory Results: 02/20/20 06:52 02/20/20 06:52 02/19/20 02/19/20 02/20/20 20:25 20:25 06:52 WBC 16.0 H 10.8 H RBC 4.63 4.11 Hgb 13.4 11.9 L Hct 41.7 36.6 MCV 90 89 MCH 28.9 28.8 MCHC 32.2 32.4 RDW 15.9 H 15.8 H Plt Count 186 142 L Seg Neutrophils % Not Reportable 78.1 H Sodium 139.3 Potassium 4.0 Chloride 106 Carbon Dioxide 26 Anion Gap 7 BUN 20 Creatinine 0.83 Est GFR ( Amer) > 60 Glucose 111 H Calcium 9.1 Total Bilirubin 0.5 AST 33 Alkaline Phosphatase 131 H Total Protein 7.4 Albumin 4.0 TSH 02/20/20 02/20/20 06:52 06:52 WBC RBC Hgb Hct MCV MCH MCHC RDW Plt Count Seg Neutrophils % Sodium 139.0 Potassium 4.6 Chloride 108 H Carbon Dioxide 27 Anion Gap 4 L BUN 24 H Creatinine 0.93 Est GFR ( Amer) > 60 Glucose 106 Calcium 8.5 Total Bilirubin AST Alkaline Phosphatase Total Protein Albumin TSH 0.49 Impressions: Chest X-Ray 02/19/20 20:16 IMPRESSION: No acute cardiopulmonary process. copyright 2011 [employer]- All Rights Reserved Venous Doppler Study 02/19/20 21:54 IMPRESSION: 1. No sonographic evidence for right lower extremity deep venous thrombosis. Assessment and Plan - Diagnosis (1) Closed right hip fracture Qualifiers: Encounter type: initial encounter Qualified Code(s): S72.001A - Fracture of unspecified part of neck of right femur, initial encounter for closed fracture Is this a current diagnosis for this admission?: Yes Plan: -Per Previous Physician: "Patient is scheduled for surgery in the morning. There is no medical contraindication of surgery. No additional testing needed. Pain control. SCD device. Pharmacological DVT prophylaxis after surgery." Due to mechanical fall at home, denies syncope/loss of consciousness/dizziness Orthopedic surgery consulted: OR for repair on 02/20 Pain management DVT prophylaxis: Lovenox PT/OT (2) Fall Qualifiers: Encounter type: initial encounter Qualified Code(s): W19.XXXA - Unspecified fall, initial encounter Is this a current diagnosis for this admission?: Yes (3) GERD (gastroesophageal reflux disease) Is this a current diagnosis for this admission?: Yes (4) Hypertension Is this a current diagnosis for this admission?: Yes Plan: Normotensive not on any medications Monitor BP (5) Rheumatoid arthritis Is this a current diagnosis for this admission?: Yes Plan: Severe hand deformities noted Takes abatacept, hold this for surgery, restart when orthopedics agrees as this could impair wound healing Pain management - Plan Summary Summary: Patient was admitted with right hip fracture. She has sinus tachycardia secondary to pain and discomfort. Her cardiovascular and respiratory status are stable. She has right calf swelling but she does not have DVT. There is no medical contraindication for surgery in the morning. No additional preoperative testing needed. - Time Time Spent with patient: 25-34 minutes Medications reviewed and adjusted accordingly: Yes Anticipated Discharge Disposition: Halfway Facility Anticipated Discharge Timeframe: within 72 hours - Inpatient Certification Based on my medical assessment, after consideration of the patient's comorbidities, presenting symptoms, or acuity I expect that the services needed warrant INPATIENT care.: Yes I certify that my determination is in accordance with my understanding of Medicare's requirements for reasonable and necessary INPATIENT services [42 CFR 412.3e].: Yes Medical Necessity: Significant Comorbidiites Make Outpatient Treatment Too Risky, Need Close Monitoring Due to Risk of Patient Decompensation, Need for Surgery, Risk of Complication if Not Cared For in Hospital, Risk of Diagnosis Which Will Require Inpatient Eval/Care/Monitoring
[2020-02-20] MEDS ORDERED: ATORVASTATIN CALCIUM 10 MG TABLET PO SCH (22:00)
[2020-02-20] MEDS: MELATONIN 3 MG TABLET PO SCH (22:03)
[2020-02-20] MEDS: ATORVASTATIN CALCIUM 10 MG TABLET PO SCH (22:03)
[2020-02-21 00:09] LABS: APPEARANCE,URINE SLIGHTLY-CLOUDY; BILIRUBIN,URINE NEGATIVE (NEGATIVE); COLOR,URINE YELLOW; GLUCOSE, URINE NEGATIVE (NEGATIVE); KETONES,URINE NEGATIVE (NEGATIVE); LEUKOCYTE ESTERASE,URINE LARGE (NEGATIVE); NITRITE,URINE POSITIVE (NEGATIVE); PROTEIN,URINE 30 mg/dL (NEGATIVE); URINE SPECIFIC GRAVITY 1.027; UROBILINOGEN,URINE NEGATIVE mg/dL (<2.0)
[2020-02-21] MEDS: MORPHINE SULFATE 10 MG/ML INJ IV PRN ×3 (00:22→22:07)
--- NOTE | 2020-02-21 00:23 | EKG REPORT ---
SEVERITY:- ABNORMAL ECG - SINUS TACHYCARDIA VENTRICULAR PREMATURE COMPLEX PROBABLE LEFT ATRIAL ABNORMALITY LEFT ANTERIOR FASCICULAR BLOCK LVH WITH SECONDARY REPOLARIZATION ABNORMALITY : Confirmed by: Aliyah Brooks 21-Feb-2020 00:22:11
[2020-02-21] MEDS: ACETAMINOPHEN 325 MG TABLET PO PRN ×3 (02:06→15:59)
[2020-02-21] MEDS: POTASSI CL 20 MEQ/NS 1L 1,000 ML IV PRN ×2 (03:12→21:38)
[2020-02-21] MEDS ORDERED: PANTOPRAZOLE SODIUM 20 MG TABLET.DR PO SCH (06:00)
[2020-02-21] MEDS: GABAPENTIN 100 MG CAPSULE PO SCH ×3 (06:32→21:39)
[2020-02-21] MEDS: PANTOPRAZOLE SODIUM 40 MG TABLET.DR PO SCH (06:35)
[2020-02-21] MEDS ORDERED: ONDANSETRON HCL INJ/PF 4 MG/2 ML SDV ONE (07:12)
[2020-02-21] MEDS ORDERED: LIDOCAINE 2% INJ-PF (20 MG/ML) 10 ML AMPUL ONE (07:12)
[2020-02-21] MEDS ORDERED: DEXAMETHASONE SOD PHOSPHATE INJ 4 MG/1 ML VIAL ONE (07:12)
[2020-02-21] MEDS ORDERED: FENTANYL CITRATE INJ/PF 100 MCG/2 ML AMPUL ONE ×2 (07:12→09:44)
[2020-02-21] MEDS ORDERED: MIDAZOLAM 2 MG/2 ML INJ ONE (07:12)
[2020-02-21] MEDS ORDERED: PROPOFOL INJ 200 MG/20 ML VIAL IV ONE ×2 (07:13→09:44)
[2020-02-21] MEDS ORDERED: BACITRACIN INJ 50,000 UNIT VIAL ONE (07:14)
[2020-02-21] MEDS ORDERED: VANCOMYCIN HCL INJ 1000 MG VIAL ONE (07:14)
[2020-02-21] MEDS ORDERED: TRANEXAMIC ACID INJ/PF 1,000 MG/10 ML SDV ONE (08:54)
[2020-02-21] MEDS ORDERED: CEFAZOLIN INJ 1 GM VIAL ONE (08:54)
[2020-02-21] MEDS ORDERED: PROMETHAZINE HCL INJ 25 MG/1 ML VIAL IV PRN ×2 (09:03)
[2020-02-21] MEDS ORDERED: DIPHENHYDRAMINE HCL 50 MG/ML VIAL IV PRN (09:03)
[2020-02-21] MEDS ORDERED: MEPERIDINE HCL/PF INJ 25 MG/1 ML DISP.SYRIN IV PRN (09:03)
[2020-02-21] MEDS ORDERED: FENTANYL CITRATE INJ/PF 100 MCG/2 ML AMPUL IV PRN ×3 (09:03)
[2020-02-21] MEDS ORDERED: ONDANSETRON HCL INJ/PF 4 MG/2 ML SDV IV PRN (09:03)
--- NOTE | 2020-02-21 10:10 | Operative Report ---
Operative Report DATE OF SURGERY: 02/21/20 PREOPERATIVE DIAGNOSIS: right hip displaced femoral neck fracture POSTOPERATIVE DIAGNOSIS: same OPERATION: right hip hemiarthroplasty SURGEON: INOCENCIA WELLS ANESTHESIA: Spinal COMPLICATIONS: none ESTIMATED BLOOD LOSS: 150 cc INTRAOPERATIVE FINDINGS: Same PROCEDURE: Indications for procedure: The patient is a pleasant 74-year-old woman who sustained a fall at home resulting in a displaced fracture of the right femoral neck. Description of procedure: Following the induction of a spinal anesthetic and administration of 2 g of Ancef, the patient was positioned lateral on a pegboard. Axillary roll was placed and all bony prominences were padded. The right lower extremity was sterilely prepped with ChloraPrep and draped in standard fashion. A posterior approach to the right hip was performed. A sharp incision was performed through skin with Bovie electrocautery through the subcutaneous tissue and fat. The fascia of the gluteus mica was opened. Charnley retractor was placed to control the gluteus fascia. The gluteus minimus and medius were protected with a Hohmann retractor and the external rotators were taken off the posterior aspect of the hip using electrocautery. The fracture was visualized. Using a guide a femoral neck resection cut was performed. The femoral head was removed and sized. A box osteotome was used to ensure proper entry down the femoral canal. Sequential broaching of the femoral canal was performed until a tight fit was found with a 6 mm stem. Trials were then placed and the hip was taken through a full range of motion. The hip demonstrated excellent range of motion with the trial implants in place. Trials were removed and the hip was copiously irrigated with a combination of pulse lavage and irrisept solution. Final implants were then impacted into place. The hip was again taken through a full range of motion and found to be stable. Additional pulse lavage and irrisept irrigation was performed. The external rotators were repaired back through the greater trochanter using #1 Ethibond suture. 1 g of vancomycin was placed deep in the wound to prevent postoperative infection. The gluteus fascia was reapproximated side to side with #1 barbed suture. The subcutaneous tissue was then closed with 2-O barbed suture. The skin was reapproximated with 3-0 Monocryl barbed suture. The wound was then over closed with a dressing and surgical glue construct. A sterile dressing was then applied. The patient tolerated procedure well without complication was brought recovery room in stable condition. Implants: [place] Accolade two 132 degree neck angle stem #6 Shelbi Unitrax endoprosthetic head 47 mm [place] Unitrax standard offset
[2020-02-21] MEDS: FENTANYL CITRATE INJ/PF 100 MCG/2 ML AMPUL ONE ×2 (10:50→10:55)
--- NOTE | 2020-02-21 11:47 | RADIOLOGY REPORT (SQ) ---
EXAM DESCRIPTION: HIP RIGHT AP/LATERAL IMAGES COMPLETED DATE/TIME: 02/21/2020 11:31 am REASON FOR STUDY: POST OP HIP/PACU COMPARISON: None. NUMBER OF VIEWS: Two views. TECHNIQUE: AP and lateral cross-table views of the right hip were obtained. LIMITATIONS: None. FINDINGS: MINERALIZATION: Decreased. RIGHT HIP: Status post THR; the hardware is in anatomic alignment. There is no periprosthetic fractu re. LEFT HIP: Intact THR hardware. PUBIS AND ISCHIUM: The ilioischial and iliopectineal lines are intact. There is no diastasis of the pubic symphysis. PELVIS: No fracture. SACRUM: The sacrum is obscured by overlying bowel. LOWER LUMBAR SPINE: Degenerative spondylosis of the lumbar spine. SOFT TISSUES: Subcutaneous emphysema lateral to the right femur. OTHER: No other findings. IMPRESSION: Uncomplicated right-sided JULITA hardware with expected immediate postoperative findings. TECHNICAL DOCUMENTATION: JOB ID: [id number] 2010 [employer]- All Rights Reserved Reading location - IP/workstation name: [email or web address]
[2020-02-21] MEDS: CEFAZOLIN SODIUM 2 GM in DEXTROSE 5%-WATER 100 ML IV SCH ×2 (14:44→21:39)
[2020-02-21] MEDS: CALCIUM CARBONATE 600 MG/VITAMIN D3 400 UNIT TABLET PO SCH (14:45)
[2020-02-21] MEDS: CEFTRIAXONE 2 GM/D5W RTU 2 GM/50 ML RTUPB IV SCH (17:31)
[2020-02-21] MEDS ORDERED: PHENYLEPHRINE HCL INJ/PF 10 MG/1 ML SDV ONE (17:54)
--- NOTE | 2020-02-21 19:13 | PDOC PROGRESS REPORT ---
Subjective Subjective:: Per Previous Physician: "THADDEUS PILLAI is a 74 year old female The patient fell at home, lost her balance. She fell on her right hip area. She suffered a right subcapital femoral neck fracture. Dr. Langley, orthopedic surgery was contacted by the emergency department provider. He is planning surgery for the morning unless there is medical contraindication. Beside right hip area pain the patient does not have any other complaint. I noticed his right lower extremity, especially the right calf is swollen. She says she has the swelling for about a week now. She has a superficial healing laceration on the lateral right lower leg. No shortness of breath, no chest pain." 02/20/2020 Patient states she is still having some significant right hip pain as expected from her recent fall with hip fracture. Orthopedic surgery is reportedly delayed her surgery until tomorrow. Patient's Covid testing as well as in fluenza and RSV are all negative. Other labs reviewed and are acceptable. Patient will need at least 1 month of DVT prophylaxis after hip repair. Guidelines recommend heparin versus Lovenox versus NOAC. Orthopedic surgery following. 02/21/2020 Patient is now postop and doing quite well. She states her pain is relatively well controlled. She states she was unable to do very much physical therapy today but plans to try again tomorrow. She states she does not want to go to [facility] but would be open to going to another facility. She states her family can very likely not take care of her at home currently because of other family members who are ill. She has no new complaints otherwise. Reason For Visit: FALL, CLOSED RIGHT HIP FRACTURE Physical Exam Vital Signs: Temp Pulse Resp BP Pulse Ox 97.2 F 88 16 133/84 H 99 02/21/20 11:58 02/21/20 18:30 02/21/20 11:30 02/21/20 18:30 02/21/20 18:30 Intake & Output 02/20/20 02/21/20 02/22/20 06:59 06:59 06:59 Intake Total 15 2556 1300 Output Total 50 350 550 Balance -35 2206 750 Weight 60 kg 68.1 kg Exam: General appearance: PRESENT: no acute distress, well-developed, well-nourished, thin and frail appearing elderly white female, states her surgery went well Head exam: PRESENT: atraumatic, normocephalic Eye exam: PRESENT: conjunctiva pink. ABSENT: scleral icterus Mouth exam: PRESENT: moist Respiratory exam: PRESENT: clear to auscultation lobito. ABSENT: rales, rhonchi, wheezes Cardiovascular exam: PRESENT: RRR. ABSENT: diastolic murmur, rubs, systolic murmur GI/Abdominal exam: PRESENT: normal bowel sounds, soft. ABSENT: distended, guarding, mass, organolmegaly, rebound, tenderness Neurological exam: PRESENT: alert, awake, oriented to person, oriented to place, oriented to time, oriented to situation Psychiatric exam: PRESENT: appropriate affect, normal mood Skin exam: PRESENT: dry, intact, warm Musculoskeletal: Moderate right hip pain with movement and palpation along surgical site Results Laboratory Results: 02/20/20 06:52 02/20/20 06:52 02/20/20 22:50 Urine Color YELLOW Urine Appearance SLIGHTLY-CLOUDY Urine pH 5.0 Ur Specific [place] 1.027 Urine Protein 30 H Urine Glucose (UA) NEGATIVE Urine Ketones NEGATIVE Urine Blood MODERATE H Urine Nitrite POSITIVE H Ur Leukocyte Esterase LARGE H Urine WBC (Auto) 84 Urine RBC (Auto) 31 Impressions: Chest X-Ray 02/19/20 20:16 IMPRESSION: No acute cardiopulmonary process. copyright 2011 [employer]- All Rights Reserved Venous Doppler Study 02/19/20 21:54 IMPRESSION: 1. No sonographic evidence for right lower extremity deep venous thrombosis. Hip/Pelvis X-Ray 02/21/20 00:00 IMPRESSION: Uncomplicated right-sided JULITA hardware with expected immediate postoperative findings. Assessment and Plan - Diagnosis (1) Closed right hip fracture Qualifiers: Encounter type: initial encounter Qualified Code(s): S72.001A - Fracture of unspecified part of neck of right femur, initial encounter for closed fracture Is this a current diagnosis for this admission?: Yes (2) Fall Qualifiers: Encounter type: initial encounter Qualified Code(s): W19.XXXA - Unspecified fall, initial encounter Is this a current diagnosis for this admission?: Yes (3) GERD (gastroesophageal reflux disease) Is this a current diagnosis for this admission?: Yes (4) Hypertension Is this a current diagnosis for this admission?: Yes (5) Rheumatoid arthritis Is this a current diagnosis for this admission?: Yes - Plan Summary Summary: (1) Closed right hip fracture Qualifiers: Encounter type: initial encounter Qualified Code(s): S72.001A - Fracture of unspecified part of neck of right femur, initial encounter for closed fracture Is this a current diagnosis for this admission?: Yes Plan: -Per Previous Physician: "Patient is scheduled for surgery in the morning. There is no medical contraindication of surgery. No additional testing needed. Pain control. SCD device. Pharmacological DVT prophylaxis after surgery." Due to mechanical fall at home, denies syncope/loss of consciousness/dizziness Orthopedic surgery consulted: OR for repair on 02/20, done Pain management DVT prophylaxis: Lovenox PT/OT (2) Fall Qualifiers: Encounter type: initial encounter Qualified Code(s): W19.XXXA - Unspecified fall, initial encounter Is this a current diagnosis for this admission?: Yes (3) GERD (gastroesophageal reflux disease) Is this a current diagnosis for this admission?: Yes (4) Hypertension Is this a current diagnosis for this admission?: Yes Plan: Normotensive not on any medications Monitor BP (5) Rheumatoid arthritis Is this a current diagnosis for this admission?: Yes Plan: Severe hand deformities noted Takes abatacept, hold this for surgery, restart when orthopedics agrees as this could impair wound healing Pain management - Time Time Spent with patient: 25-34 minutes Medications reviewed and adjusted accordingly: Yes Anticipated Discharge Disposition: Snf Facility Anticipated Discharge Timeframe: within 48 hours - Inpatient Certification Based on my medical assessment, after consideration of the patient's c omorbidities, presenting symptoms, or acuity I expect that the services needed warrant INPATIENT care.: Yes I certify that my determination is in accordance with my understanding of Medicare's requirements for reasonable and necessary INPATIENT services [42 CFR 412.3e].: Yes Medical Necessity: Significant Comorbidiites Make Outpatient Treatment Too Risky, Need Close Monitoring Due to Risk of Patient Decompensation, Risk of Complication if Not Cared For in Hospital, Risk of Diagnosis Which Will Require Inpatient Eval/Care/Monitoring
[2020-02-21] MEDS: MELATONIN 3 MG TABLET PO SCH (21:39)
[2020-02-21] MEDS: ATORVASTATIN CALCIUM 10 MG TABLET PO SCH (21:39)
[2020-02-22] MEDS: MORPHINE SULFATE 10 MG/ML INJ IV PRN ×5 (02:37→22:43)
[2020-02-22] MEDS: ACETAMINOPHEN 325 MG TABLET PO PRN ×5 (02:40→22:43)
[2020-02-22] MEDS: PANTOPRAZOLE SODIUM 40 MG TABLET.DR PO SCH (06:00)
[2020-02-22] MEDS: GABAPENTIN 100 MG CAPSULE PO SCH ×3 (06:00→21:31)
[2020-02-22] MEDS: CEFAZOLIN SODIUM 2 GM in DEXTROSE 5%-WATER 100 ML IV SCH (06:00)
[2020-02-22] MEDS: ENOXAPARIN SODIUM INJ 40 MG/0.4 ML DISP.SYRIN SUBCUT SCH (10:06)
[2020-02-22] MEDS: CALCIUM CARBONATE 600 MG/VITAMIN D3 400 UNIT TABLET PO SCH (10:06)
[2020-02-22] MEDS: TRAMADOL HCL 50 MG TABLET PO PRN (10:06)
[2020-02-22] MEDS: POTASSI CL 20 MEQ/NS 1L 1,000 ML IV PRN (15:01)
--- NOTE | 2020-02-22 16:16 | PDOC PROGRESS REPORT ---
Subjective Subjective:: Per Previous Physician: "THADDEUS PILLAI is a 74 year old female The patient fell at home, lost her balance. She fell on her right hip area. She suffered a right subcapital femoral neck fracture. Dr. Langley, orthopedic surgery was contacted by the emergency department provider. He is planning surgery for the morning unless there is medical contraindication. Beside right hip area pain the patient does not have any other complaint. I noticed his right lower extremity, especially the right calf is swollen. She says she has the swelling for about a week now. She has a superficial healing laceration on the lateral right lower leg. No shortness of breath, no chest pain." 02/20/2020 Patient states she is still having some significant right hip pain as expected from her recent fall with hip fracture. Orthopedic surgery is reportedly delayed her surgery until tomorrow. Patient's Covid testing as well as in fluenza and RSV are all negative. Other labs reviewed and are acceptable. Patient will need at least 1 month of DVT prophylaxis after hip repair. Guidelines recommend heparin versus Lovenox versus NOAC. Orthopedic surgery following. 02/21/2020 Patient is now postop and doing quite well. She states her pain is relatively well controlled. She states she was unable to do very much physical therapy today but plans to try again tomorrow. She states she does not want to go to [facility] but would be open to going to another facility. She states her family can very likely not take care of her at home currently because of other family members who are ill. She has no new complaints otherwise. 02/22/2020 Patient states she is feeling much better today compared to yesterday. She states her pain is better controlled and she is able to accomplish much more physical therapy. If she is accepted to a nursing facility, she could be discharged tomorrow pending orthopedics approval. She will need extensive rehab at a nursing facility. I had a long discussion with the patient today about getting the coronavirus vaccine as I believe she is very high risk to pass away if she were to get coronavirus pneumonia. Patient states that she wants this vaccine if it is offered to her at a nursing facility. Reason For Visit: FALL, CLOSED RIGHT HIP FRACTURE Physical Exam Vital Signs: Temp Pulse Resp BP Pulse Ox 98.6 F 80 18 132/74 H 98 02/22/20 11:59 02/22/20 11:59 02/22/20 11:59 02/22/20 11:59 02/22/20 11:59 Intake & Output 02/21/20 02/22/20 02/23/20 06:59 06:59 06:59 Intake Total 2556 2350 1000 Output Total 350 2150 700 Balance 2206 200 300 Weight 68.1 kg 68.1 kg Exam: General appearance: PRESENT: no acute distress, well-developed, well-nourished, thin and frail appearing elderly white female, states her pain is much better controlled today Head exam: PRESENT: atraumatic, normocephalic Eye exam: PRESENT: conjunctiva pink. ABSENT: scleral icterus Mouth exam: PRESENT: moist Respiratory exam: PRESENT: clear to auscultation lobito. ABSENT: rales, rhonchi, wheezes Cardiovascular exam: PRESENT: RRR. ABSENT: diastolic murmur, rubs, systolic murmur GI/Abdominal exam: PRESENT: normal bowel sounds, soft. ABSENT: distended, guarding, mass, organolmegaly, rebound, tenderness Neurological exam: PRESENT: alert, awake, oriented to person, oriented to place, oriented to time, oriented to situation Psychiatric exam: PRESENT: appropriate affect, normal mood Skin exam: PRESENT: dry, intact, warm Musculoskeletal: Mild right hip pain with movement and palpation along surgical site Results Laboratory Results: 02/20/20 06:52 02/20/20 06:52 02/22/20 11:48 Magnesium 1.7 Impressions: Chest X-Ray 02/19/20 20:16 IMPRESSION: No acute cardiopulmonary process. copyright 2011 [employer]- All Rights Reserved Venous Doppler Study 02/19/20 21:54 IMPRESSION: 1. No sonographic evidence for right lower extremity deep venous thrombosis. Hip/Pelvis X-Ray 02/21/20 00:00 IMPRESSION: Uncomplicated right-sided JULITA hardware with expected immediate postoperative findings. Assessment and Plan - Diagnosis (1) Closed right hip fracture Qualifiers: Encounter type: initial encounter Qualified Code(s): S72.001A - Fracture of unspecified part of neck of right femur, initial encounter for closed fracture Is this a current diagnosis for this admission?: Yes (2) Fall Qualifiers: Encounter type: initial encounter Qualified Code(s): W19.XXXA - Unspecified fall, initial encounter Is this a current diagnosis for this admission?: Yes (3) GERD (gastroesophageal reflux disease) Is this a current diagnosis for this admission?: Yes (4) Hypertension Is this a current diagnosis for this admission?: Yes (5) Rheumatoid arthritis Is this a current diagnosis for this admission?: Yes - Plan Summary Summary: (1) Closed right hip fracture Qualifiers: Encounter type: initial encounter Qualified Code(s): S72.001A - Fracture of unspecified part of neck of right femur, initial encounter for closed fracture Is this a current diagnosis for this admission?: Yes Plan: -Per Previous Physician: "Patient is scheduled for surgery in the morning. There is no medical contraindication of surgery. No additional testing needed. Pain control. SCD device. Pharmacological DVT prophylaxis after surgery." Due to mechanical fall at home, denies syncope/loss of consciousness/dizziness Orthopedic surgery consulted: OR for repair on 02/20, done Pain management DVT prophylaxis: Lovenox PT/OT Plan for discharge to SNF (2) Fall Qualifiers: Encounter type: initial encounter Qualified Code(s): W19.XXXA - Unspecified fall, initial encounter Is this a current diagnosis for this admission?: Yes (3) GERD (gastroesophageal reflux disease) Is this a current diagnosis for this admission?: Yes (4) Hypertension Is this a current diagnosis for this admission?: Yes Plan: Normotensive not on any medications Monitor BP (5) Rheumatoid arthritis Is this a current diagnosis for this admission?: Yes Plan: Severe hand deformities noted Takes abatacept, hold this for surgery, restart when orthopedics agrees as this could impair wound healing Pain management - Time Time Spent with patient: 15-24 minutes Medications reviewed and adjusted accordingly: Yes Anticipated Discharge Disposition[facility] Facility Anticipated Discharge Timeframe: within 24 hours - Inpatient Certification Based on my medical assessment, after consideration of the patient's comorbidities, presenting symptoms, or acuity I expect that the services needed warrant INPATIENT care.: Yes I certify that my determination is in accordance with my understanding of Medicare's requirements for reasonable and necessary INPATIENT services [42 CFR 412.3e].: Yes Medical Necessity: Significant Comorbidiites Make Outpatient Treatment Too Risky, Need Close Monitoring Due to Risk of Patient Decompensation, Need for Pain Control, Risk of Complication if Not Cared For in Hospital, Risk of Diagnosis Which Will Require Inpatient Eval/Care/Monitoring
--- NOTE | 2020-02-22 16:47 | PDOC PROGRESS REPORT ---
Subjective Date:: 02/22/20 Subjective:: The patient is experiencing moderate postoperative discomfort. She feels that h er pain is improved compared with symptoms prior to surgery. Reason For Visit: FALL, CLOSED RIGHT HIP FRACTURE right hip displaced femoral neck fracture Physical Exam Vital Signs: Temp Pulse Resp BP Pulse Ox 98.6 F 80 18 132/74 H 98 02/22/20 11:59 02/22/20 11:59 02/22/20 11:59 02/22/20 11:59 02/22/20 11:59 Intake & Output 02/21/20 02/22/20 02/23/20 06:59 06:59 06:59 Intake Total 2556 2350 1000 Output Total 350 2150 700 Balance 2206 200 300 Weight 68.1 kg 68.1 kg General appearance: PRESENT: no acute distress, well-developed, well-nourished Musculoskeletal exam: PRESENT: other - The surgical wound is clean and intact. There is no evidence of infection. Patient is able to DF and PF the ankle. Sensation is normal to touch. Psychiatric exam: PRESENT: appropriate affect, normal mood. ABSENT: homicidal ideation, suicidal ideation Results Laboratory Results: 02/20/20 06:52 02/20/20 06:52 02/22/20 11:48 Magnesium 1.7 Impressions: Chest X-Ray 02/19/20 20:16 IMPRESSION: No acute cardiopulmonary process. copyright 2011 [employer]- All Rights Reserved Venous Doppler Study 02/19/20 21:54 IMPRESSION: 1. No sonographic evidence for right lower extremity deep venous thrombosis. Hip/Pelvis X-Ray 02/21/20 00:00 IMPRESSION: Uncomplicated right-sided JULITA hardware with expected immediate postoperative findings. Assessment & Plan - Diagnosis (1) Left hip pain Is this a current diagnosis for this admission?: Yes (2) Subcapital fracture of left hip Qualifiers: Encounter type: initial encounter - Time Anticipated Discharge Disposition: [facility] Facility Anticipated Discharge Timeframe: within 24 hours Critical Time spent with patient: Less than 15 minutes - Plan Summary Plan Summary: Postoperative day # 1 s/p right hip hemiarthroplasty for femoral neck fracture 1. complete 24 hours of perioperative antibiotics 2. lovenox for DVT prophylaxis 3. Physical Therapy: WBAT/ posterior hip precautions 4. Patient is stable from orthopeadic standpoint for discharge to SNF 5. Wound closed with barbed suture, mesh and surgical glue construct. Patient may shower when clinically appropriate There is no suture for removal. Patient should f/u 2-3 weeks post discharge.
[2020-02-22] MEDS: CEFTRIAXONE 2 GM/D5W RTU 2 GM/50 ML RTUPB IV SCH (18:19)
[2020-02-22] MEDS: ATORVASTATIN CALCIUM 10 MG TABLET PO SCH (21:31)
[2020-02-22] MEDS: MELATONIN 3 MG TABLET PO SCH (21:55)
[2020-02-23] MEDS: ACETAMINOPHEN 325 MG TABLET PO PRN ×2 (05:18→17:57)
[2020-02-23] MEDS: MORPHINE SULFATE 10 MG/ML INJ IV PRN ×4 (05:19→20:25)
[2020-02-23] MEDS: GABAPENTIN 100 MG CAPSULE PO SCH ×3 (05:19→22:04)
[2020-02-23] MEDS: PANTOPRAZOLE SODIUM 40 MG TABLET.DR PO SCH (05:19)
[2020-02-23 06:40] LABS: ABSOLUTE EOSINOPHILS # (AUTO) 0.3 10^3/uL (0.0-0.6); ABSOLUTE LYMPHOCYTES (AUTO) 1.2 10^3/uL (0.5-4.7); ABSOLUTE MONOCYTES (AUTO) 0.9 10^3/uL (0.1-1.4); BASOPHILS % (AUTO) 0.4 % (0-2); EOSINOPHILS % (AUTO) 4.1 % (0-6); HEMATOCRIT 31.4 % (36.0-47.0); HEMOGLOBIN 10.4 g/dL (12.0-15.5); LYMPHOCYTES % (AUTO) 14.1 % (13-45); MEAN CORPUSCULAR HEMOGLOBIN 29.6 pg (27.0-33.4); MEAN CORPUSCULAR HGB CONC 33.1 g/dL (32.0-36.0); MEAN CORPUSCULAR VOLUME 89 fl (80-97); MONOCYTES % (AUTO) 10.4 % (3-13); PLATELET COUNT 118 10^3/uL (150-450); RED BLOOD COUNT 3.51 10^6/uL (3.72-5.28); RED CELL DISTRIBUTION WIDTH 15.6 % (11.5-14.0); TOTAL CELLS COUNTED % (AUTO) 100 %; WHITE BLOOD COUNT 8.4 10^3/uL (4.0-10.5)
[2020-02-23 06:57] LABS: BLOOD UREA NITROGEN 14 mg/dL (7-20); CALCIUM 8.2 mg/dL (8.4-10.2); CARBON DIOXIDE 29 mmol/L (22-30); CHLORIDE 108 mmol/L (98-107); GLUCOSE 106 mg/dL (75-110); POTASSIUM 4.6 mmol/L (3.6-5.0)
[2020-02-23] MEDS: POTASSI CL 20 MEQ/NS 1L 1,000 ML IV PRN ×2 (06:59→20:26)
[2020-02-23 07:13] LABS: ANION GAP 4 (5-19)
[2020-02-23] MEDS: TRAMADOL HCL 50 MG TABLET PO PRN (08:32)
[2020-02-23] MEDS: ENOXAPARIN SODIUM INJ 40 MG/0.4 ML DISP.SYRIN SUBCUT SCH (11:18)
[2020-02-23] MEDS: CALCIUM CARBONATE 600 MG/VITAMIN D3 400 UNIT TABLET PO SCH (11:20)
--- NOTE | 2020-02-23 15:11 | PDOC PROGRESS REPORT ---
Subjective Subjective:: Per Previous Physician: "THADDEUS PILLAI is a 74 year old female The patient fell at home, lost her balance. She fell on her right hip area. She suffered a right subcapital femoral neck fracture. Dr. Langley, orthopedic surgery was contacted by the emergency department provider. He is planning surgery for the morning unless there is medical contraindication. Beside right hip area pain the patient does not have any other complaint. I noticed his right lower extremity, especially the right calf is swollen. She says she has the swelling for about a week now. She has a superficial healing laceration on the lateral right lower leg. No shortness of breath, no chest pain." 02/20/2020 Patient states she is still having some significant right hip pain as expected from her recent fall with hip fracture. Orthopedic surgery is reportedly delayed her surgery until tomorrow. Patient's Covid testing as well as in fluenza and RSV are all negative. Other labs reviewed and are acceptable. Patient will need at least 1 month of DVT prophylaxis after hip repair. Guidelines recommend heparin versus Lovenox versus NOAC. Orthopedic surgery following. 02/21/2020 Patient is now postop and doing quite well. She states her pain is relatively well controlled. She states she was unable to do very much physical therapy today but plans to try again tomorrow. She states she does not want to go to [facility] but would be open to going to another facility. She states her family can very likely not take care of her at home currently because of other family members who are ill. She has no new complaints otherwise. 02/22/2020 Patient states she is feeling much better today compared to yesterday. She states her pain is better controlled and she is able to accomplish much more physical therapy. If she is accepted to a nursing facility, she could be discharged tomorrow pending orthopedics approval. She will need extensive rehab at a nursing facility. I had a long discussion with the patient today about getting the coronavirus vaccine as I believe she is very high risk to pass away if she were to get coronavirus pneumonia. Patient states that she wants this vaccine if it is offered to her at a nursing facility. 02/22/2022 Patient is doing well today. We are still waiting on insurance authorization for her to go to [facility]. She is working with physical therapy and overall doing well. She has no new complaints today. Reason For Visit: FALL, CLOSED RIGHT HIP FRACTURE Physical Exam Vital Signs: Temp Pulse Resp BP Pulse Ox 97.8 F 90 18 128/78 H 91 L 02/23/20 11:08 02/23/20 11:08 02/23/20 11:08 02/23/20 11:08 02/23/20 11:08 Intake & Output 02/22/20 02/23/20 02/24/20 06:59 06:59 06:59 Intake Total 2350 2050 Output Total 2150 1700 500 Balance 200 350 -500 Weight 68.1 kg 70 kg Exam: General appearance: PRESENT: no acute distress, well-developed, well-nourished, thin and frail appearing elderly white female, states she worked very hard with physical therapy and is now rather fatigued Head exam: PRESENT: atraumatic, normocephalic Eye exam: PRESENT: conjunctiva pink. ABSENT: scleral icterus Mouth exam: PRESENT: moist Respiratory exam: PRESENT: clear to auscultation lobito. ABSENT: rales, rhonchi, wheezes Cardiovascular exam: PRESENT: RRR. ABSENT: diastolic murmur, rubs, systolic murmur GI/Abdominal exam: PRESENT: normal bowel sounds, soft. ABSENT: distended, guarding, mass, organolmegaly, rebound, tenderness Neurological exam: PRESENT: alert, awake, oriented to person, oriented to place, oriented to time, oriented to situation Psychiatric exam: PRESENT: appropriate affect, normal mood Skin exam: PRESENT: dry, intact, warm Musculoskeletal: Mild right hip pain with movement and palpation along surgical site Results Laboratory Results: 02/23/20 06:25 02/23/20 06:25 02/23/20 02/23/20 06:25 06:25 WBC 8.4 RBC 3.51 L Hgb 10.4 L Hct 31.4 L MCV 89 MCH 29.6 MCHC 33.1 RDW 15.6 H Plt Count 118 L Seg Neutrophils % 71.0 Sodium 139.0 Potassium 4.6 Chloride 108 H Carbon Dioxide 29 Anion Gap 4 L BUN 14 Creatinine 0.76 Est GFR ( Amer) > 60 Glucose 106 Calcium 8.2 L 02/21/20 19:50 Webber Catheter Urine Culture - Final 3,000 col/ml Impressions: Chest X-Ray 12/12/20 20:16 IMPRESSION: No acute cardiopulmonary process. copyright 2011 [employer]- All Rights Reserved Venous Doppler Study 02/19/20 21:54 IMPRESSION: 1. No sonographic evidence for right lower extremity deep venous thrombosis. Hip/Pelvis X-Ray 02/21/20 00:00 IMPRESSION: Uncomplicated right-sided JULITA hardware with expected immediate postoperative findings. Assessment and Plan - Diagnosis (1) Closed right hip fracture Qualifiers: Encounter type: initial encounter Qualified Code(s): S72.001A - Fracture of unspecified part of neck of right femur, initial encounter for closed fracture Is this a current diagnosis for this admission?: Yes (2) Fall Qualifiers: Encounter type: initial encounter Qualified Code(s): W19.XXXA - Unspecified fall, initial encounter Is this a current diagnosis for this admission?: Yes (3) GERD (gastroesophageal reflux disease) Is this a current diagnosis for this admission?: Yes (4) Hypertension Is this a current diagnosis for this admission?: Yes (5) Rheumatoid arthritis Is this a current diagnosis for this admission?: Yes - Plan Summary Summary: (1) Closed right hip fracture Qualifiers: Encounter type: initial encounter Qualified Code(s): S72.001A - Fracture of unspecified part of neck of right femur, initial encounter for closed fracture Is this a current diagnosis for this admission?: Yes Plan: -Per Previous Physician: "Patient is scheduled for surgery in the morning. There is no medical contraindication of surgery. No additional testing needed. Pain control. SCD device. Pharmacological DVT prophylaxis after surgery." Due to mechanical fall at home, denies syncope/loss of consciousness/dizziness Orthopedic surgery consulted: OR for repair on 02/20, done Pain management DVT prophylaxis: Lovenox PT/OT: Working well with them consistently Plan for discharge to SNF (2) Fall Qualifiers: Encounter type: initial encounter Qualified Code(s): W19.XXXA - Unspecified fall, initial encounter Is this a current diagnosis for this admission?: Yes (3) GERD (gastroesophageal reflux disease) Is this a current diagnosis for this admission?: Yes (4) Hypertension Is this a current diagnosis for this admission?: Yes Plan: Normotensive not on any medications Monitor BP (5) Rheumatoid arthritis Is this a current diagnosis for this admission?: Yes Plan: Severe hand deformities noted Takes abatacept, hold this for surgery, restart when orthopedics agrees as this could impair wound healing Pain management - Time Time Spent with patient: 15-24 minutes Medications reviewed and adjusted accordingly: Yes Anticipated Discharge Disposition: Longterm Facility Anticipated Discharge Timeframe: within 24 hours - Inpatient Certification Based on my medical assessment, after consideration of the patient's comorbidities, presenting symptoms, or acuity I expect that the services needed warrant INPATIENT care.: Yes I certify that my determination is in accordance with my understanding of [employer] 's requirements for reasonable and necessary INPATIENT services [42 CFR 412.3e].: Yes Medical Necessity: Significant Comorbidiites Make Outpatient Treatment Too Risky, Need Close Monitoring Due to Risk of Patient Decompensation, Need for Pain Control, Risk of Complication if Not Cared For in Hospital, Risk of Diagnosis Which Will Require Inpatient Eval/Care/Monitoring
[2020-02-23] MEDS: CEFTRIAXONE 2 GM/D5W RTU 2 GM/50 ML RTUPB IV SCH (17:52)
[2020-02-23] MEDS: MELATONIN 3 MG TABLET PO SCH (22:04)
[2020-02-23] MEDS: ATORVASTATIN CALCIUM 10 MG TABLET PO SCH (22:04)
[2020-02-24] MEDS: ACETAMINOPHEN 325 MG TABLET PO PRN ×4 (00:24→14:16)
[2020-02-24] MEDS: MORPHINE SULFATE 10 MG/ML INJ IV PRN ×3 (00:25→08:34)
[2020-02-24] MEDS: GABAPENTIN 100 MG CAPSULE PO SCH (05:16)
[2020-02-24] MEDS: PANTOPRAZOLE SODIUM 40 MG TABLET.DR PO SCH (05:16)
--- NOTE | 2020-02-24 09:10 | PDOC PROGRESS REPORT ---
Subjective Date:: 02/24/20 Subjective:: The patient reports improvements in the postoperative discomfort of her right hi p. Reason For Visit: FALL, CLOSED RIGHT HIP FRACTURE Postoperative day #3 status post right hip hemiarthroplasty for displaced femoral neck fracture. Physical Exam Vital Signs: Temp Pulse Resp BP Pulse Ox 97.8 F 94 16 148/69 H 99 02/24/20 08:10 02/24/20 08:10 02/24/20 08:10 02/24/20 08:10 02/24/20 08:10 Intake & Output 02/23/20 02/24/20 02/25/20 06:59 06:59 06:59 Intake Total 2050 1050 Output Total 1700 2100 Balance 350 -1050 Weight 70 kg General appearance: PRESENT: no acute distress, well-developed, well-nourished Respiratory exam: PRESENT: clear to auscultation lobito. ABSENT: rales, rhonchi, wheezes Cardiovascular exam: PRESENT: RRR. ABSENT: diastolic murmur, rubs, systolic murmur Musculoskeletal exam: PRESENT: other - The surgical wound is clear dry and intact. There is no drainage, erythema, or signs of infection. The patient is able to dorsiflex and plantarflex the ankle. Sensation is intact to touch. Results Laboratory Results: 02/23/20 06:25 02/23/20 06:25 02/21/20 19:50 Webber Catheter Urine Culture - Final 3,000 col/ml Impressions: Chest X-Ray 02/19/20 20:16 IMPRESSION: No acute cardiopulmonary process. copyright 2011 [employer]- All Rights Reserved Venous Doppler Study 02/19/20 21:54 IMPRESSION: 1. No sonographic evidence for right lower extremity deep venous thrombosis. Hip/Pelvis X-Ray 02/21/20 00:00 IMPRESSION: Uncomplicated right-sided JULITA hardware with expected immediate postoperative findings. Assessment & Plan - Diagnosis (1) Left hip pain Is this a current diagnosis for this admission?: Yes (2) Subcapital fracture of left hip Qualifiers: Encounter type: initial encounter - Time Anticipated Discharge Disposition: [facility] Facility Anticipated Discharge Timeframe: when bed available Critical Time spent with patient: 15-24 minutes Medications reviewed and adjusted accordingly: Yes - Plan Summary Plan Summary: Postoperative day # 3 s/p right hip hemiarthroplasty for femoral neck fracture 1. lovenox for DVT prophylaxis 2. Physical Therapy: WBAT/ posterior hip precautions 3. Patient is stable from orthopaedic standpoint for discharge to SNF 5. Wound closed with barbed suture, mesh and surgical glue construct. Patient may shower when clinically appropriate There is no suture for removal. Patient should f/u 2-3 weeks post discharge.
[2020-02-24] MEDS: ENOXAPARIN SODIUM INJ 40 MG/0.4 ML DISP.SYRIN SUBCUT SCH (11:34)
[2020-02-24] MEDS: CALCIUM CARBONATE 600 MG/VITAMIN D3 400 UNIT TABLET PO SCH (11:35)
[2020-02-24 12:12] VITALS: BP 120/70
--- NOTE | 2020-02-24 13:10 | PDOC DISCHARGE SUMMARY ---
Impression - Admit/DC Date/PCP Admission Date/Primary Care Provider: 02/19/20 21:25 FELIZ HICKS MD Discharge Date: 02/24/20 - Discharge Diagnosis (1) Closed right hip fracture Is this a current diagnosis for this admission?: Yes (2) Fall Is this a current diagnosis for this admission?: Yes (3) GERD (gastroesophageal reflux disease) Is this a current diagnosis for this admission?: Yes (4) Hypertension Is this a current diagnosis for this admission?: Yes (5) Rheumatoid arthritis Is this a current diagnosis for this admission?: Yes - Assessment Summary: Per Previous Physician: "TAHDDEUS PILLAI is a 74 year old female The patient fell at home, lost her balance. She fell on her right hip area. She suffered a right subcapital femoral neck fracture. Dr. Langley, orthopedic surgery was contacted by the emergency department provider. He is planning surgery for the morning unless there is medical contraindication. Beside right hip area pain the patient does not have any other complaint. I noticed his right lower extremity, especially the right calf is swollen. She says she has the swelling for about a week now. She has a superficial healing laceration on the lateral right lower leg. No shortness of breath, no chest pain." 02/20/2020 Patient states she is still having some significant right hip pain as expected from her recent fall with hip fracture. Orthopedic surgery is reportedly delayed her surgery until tomorrow. Patient's Covid testing as well as influenza and RSV are all negative. Other labs reviewed and are acceptable. Patient will need at least 1 month of DVT prophylaxis after hip repair. Guidelines recommend heparin versus Lovenox versus NOAC. Orthopedic surgery following. 02/21/2020 Patient is now postop and doing quite well. She states her pain is relatively well controlled. She states she was unable to do very much physical therapy today but plans to try again tomorrow. She states she does not want to go to [facility] but would be open to going to another facility. She states her family can very likely not take care of her at home currently because of other family members who are ill. She has no new complaints otherwise. 02/22/2020 Patient states she is feeling much better today compared to yesterday. She states her pain is better controlled and she is able to accomplish much more physical therapy. If she is accepted to a nursing facility, she could be discharged tomorrow pending orthopedics approval. She will need extensive rehab at a nursing facility. I had a long discussion with the patient today about getting the coronavirus vaccine as I believe she is very high risk to pass away if she were to get coronavirus pneumonia. Patient states that she wants this vaccine if it is offered to her at a nursing facility. 02/22/2022 Patient is doing well today. We are still waiting on insurance authorization for her to go to [facility]. She is working with physical therapy and overall doing well. She has no new complaints today. Patient discharged to [facility] facility. Insurance authorization took multiple days for approval. Patient is stable and ready for discharge. She is in full agreement with the plan. (1) Closed right hip fracture Qualifiers: Encounter type: initial encounter Qualified Code(s): S72.001A - Fracture of unspecified part of neck of right femur, initial encounter for closed fracture Is this a current diagnosis for this admission?: Yes Plan: -Per Previous Physician: "Patient is scheduled for surgery in the morning. There is no medical contraindication of surgery. No additional testing needed. Pain control. SCD device. Pharmacological DVT prophylaxis after surgery." Due to mechanical fall at home, denies syncope/loss of consciousness/dizziness Orthopedic surgery consulted: OR for repair on 02/20, done Pain management DVT prophylaxis: Lovenox for total of 28 days postop PT/OT: Working well with them consistently Plan for discharge to SNF (2) Fall Qualifiers: Encounter type: initial encounter Qualified Code(s): W19.XXXA - Unspecified fall, initial encounter Is this a current diagnosis for this admission?: Yes (3) GERD (gastroesophageal reflux disease) Is this a current diagnosis for this admission?: Yes (4) Hypertension Is this a current diagnosis for this admission?: Yes Plan: Normotensive not on any medications Monitor BP (5) Rheumatoid arthritis Is this a current diagnosis for this admission?: Yes Plan: Severe hand deformities noted Takes abatacept, hold this for surgery, restart when orthopedics agrees as this could impair wound healing Pain management - Additional Information Resuscitation Status: Full Code Discharge Diet: As Tolerated Discharge Activity: Activity As Tolerated, Balance Activity w/Rest Referrals: JOAO PATEL MD [ACTIVE STAFF] - Follow up as needed Prescriptions: Tramadol HCl [Ultram 50 mg Tablet] 50 mg PO Q6HP PRN #12 PRN Reason: For Pain Home Medications: Abatacept [Orencia Clickject] 125 mg [id number] 04/24/17 Calcium Carbonate/Vitamin D3 [Calcium 500-Vit D3 400 Tablet] 1 each PO DAILY 02/20/20 Gabapentin [Neurontin 100 mg Capsule] 200 mg PO TID 02/20/20 Melatonin [Melatin] 3 mg PO QHS 02/20/20 Omeprazole 20 mg PO DAILY 02/20/20 Pravastatin Sodium 20 mg PO DAILY 02/20/20 Acetaminophen [Tylenol 325 mg Tablet] 650 mg PO Q4HP PRN tablet 02/24/20 Calcium Carbonate/Vitamin D3 [Caltrate 600-Vit D3 400 Tablet] 1 tab PO DAILY tablet 02/24/20 Enoxaparin Sodium [Lovenox Inj 40 mg/0.4 ml Disp.syrin] 40 mg SUBCUT DAILY 25 Days disp.syrin 02/24/20 Tramadol HCl [Ultram 50 mg Tablet] 50 mg PO Q6HP PRN #12 02/24/20 History of Present Illiness History of Present Illness: THADDEUS PILLAI is a 74 year old female Physical Exam Vital Signs: Temp Pulse Resp BP Pulse Ox 97.6 F 90 16 120/70 96 02/24/20 11:14 02/24/20 11:14 02/24/20 11:14 02/24/20 11:14 02/24/20 11:14 Intake & Output 02/23/20 02/24/20 02/25/20 06:59 06:59 06:59 Intake Total 2050 1050 Output Total 1700 2100 Balance 350 -1050 Weight 70 kg Exam: General appearance: PRESENT: no acute distress, well-developed, well-nourished, thin and frail appearing elderly white female, states she feels well like to go to rehab today Head exam: PRESENT: atraumatic, normocephalic Eye exam: PRESENT: conjunctiva pink. ABSENT: scleral icterus Mouth exam: PRESENT: moist Respiratory exam: PRESENT: clear to auscultation lobito. ABSENT: rales, rhonchi, wheezes Cardiovascular exam: PRESENT: RRR. ABSENT: diastolic murmur, rubs, systolic murmur GI/Abdominal exam: PRESENT: normal bowel sounds, soft. ABSENT: distended, guarding, mass, organolmegaly, rebound, tenderness Neurological exam: PRESENT: alert, awake, oriented to person, oriented to place, oriented to time, oriented to situation Psychiatric exam: PRESENT: appropriate affect, normal mood Skin exam: PRESENT: dry, intact, warm Musculoskeletal: Mild right hip pain with movement and palpation along surgical site Results Laboratory Results: WBC 8.4 10^3/uL (4.0-10.5) 02/23/20 06:25 RBC 3.51 10^6/uL (3.72-5.28) L 02/23/20 06:25 Hgb 10.4 g/dL (12.0-15.5) L 02/23/20 06:25 Hct 31.4 % (36.0-47.0) L 02/23/20 06:25 MCV 89 fl (80-97) 02/23/20 06:25 MCH 29.6 pg (27.0-33.4) 02/23/20 06:25 MCHC 33.1 g/dL (32.0-36.0) 02/23/20 06:25 RDW 15.6 % (11.5-14.0) H 02/23/20 06:25 Plt Count 118 10^3/uL (150-450) L 02/23/20 06:25 Lymph % (Auto) 14.1 % (13-45) 02/23/20 06:25 [place] % (Auto) 10.4 % (3-13) 02/23/20 06:25 Eos % (Auto) 4.1 % (0-6) 02/23/20 06:25 Baso % (Auto) 0.4 % (0-2) 02/23/20 06:25 Absolute Neuts (auto) 6.0 10^3/uL (1.7-8.2) 02/23/20 06:25 Absolute Lymphs (auto) 1.2 10^3/uL (0.5-4.7) 02/23/20 06:25 Absolute Monos (auto) 0.9 10^3/uL (0.1-1.4) 02/23/20 06:25 Absolute Eos (auto) 0.3 10^3/uL (0.0-0.6) 02/23/20 06:25 Absolute Basos (auto) 0.0 10^3/uL (0.0-0.2) 02/23/20 06:25 Total Counted 100 02/19/20 20:25 Seg Neutrophils % 71.0 % (42-78) 02/23/20 06:25 Seg Neuts % (Manual) 90 % (42-78) H 02/19/20 20:25 Lymphocytes % (Manual) 5 % (13-45) L 02/19/20 20:25 Monocytes % (Manual) 5 % (3-13) 02/19/20 20:25 Eosinophils % (Manual) 0 % (0-6) 02/19/20 20:25 Basophils % (Manual) 0 % (0-2) 02/19/20 20:25 Abs Neuts (Manual) 14.4 10^3/uL (1.7-8.2) H 02/19/20 20:25 Abs Lymphs (Manual) 0.8 10^3/uL (0.5-4.7) 02/19/20 20:25 Abs Monocytes (Manual) 0.8 10^3/uL (0.1-1.4) 02/19/20 20:25 Absolute Eos (Manual) 0.0 10^3/uL (0.0-0.6) 02/19/20 20:25 Abs Basophils (Manual) 0.0 10^3/uL (0.0-0.2) 02/19/20 20:25 Hypersegmented Neuts PRESENT 02/19/20 20:25 Toxic Vacuolation PRESENT 02/19/20 20:25 Platelet Comment ADEQUATE 02/19/20 20:25 Poikilocytosis 1+ 02/19/20 20:25 Anisocytosis SLIGHT 02/19/20 20:25 Ovalocytes 1+ 02/19/20 20:25 Yissel Cells 1+ 02/19/20 20:25 RBC Morph Comment NORMO-CYTIC/CHROMIC 02/19/20 20:25 PT 14.0 SEC (11.4-15.4) 02/19/20 20:25 INR 1.06 02/19/20 20:25 APTT 26.4 SEC (23.5-35.8) 02/19/20 20:25 Sodium 139.0 mmol/L (137-145) 02/23/20 06:25 Potassium 4.6 mmol/L (3.6-5.0) 02/23/20 06:25 Chloride 108 mmol/L (98-107) H 02/23/20 06:25 Carbon Dioxide 29 mmol/L (22-30) 02/23/20 06:25 Anion Gap 4 (5-19) L 02/23/20 06:25 BUN 14 mg/dL (7-20) 02/23/20 06:25 Creatinine 0.76 mg/dL (0.52-1.25) 02/23/20 06:25 Est GFR ( Amer) > 60 (>60) 02/23/20 06:25 Est GFR (MDRD) Non-Af > 60 (>60) 02/23/20 06:25 Glucose 106 mg/dL (75-110) 02/23/20 06:25 POC Glucose 85 mg/dL (70-110) 02/21/20 07:31 Calcium 8.2 mg/dL (8.4-10.2) L 02/23/20 06:25 Magnesium 1.7 mg/dL (1.6-2.3) 02/22/20 11:48 Total Bilirubin 0.5 mg/dL (0.2-1.3) 02/19/20 20:25 Direct Bilirubin 0.1 mg/dL (0.0-0.4) 02/19/20 20:25 Neonat Total Bilirubin Not Reportable 02/19/20 20:25 Neonat Direct Bilirubin Not Reportable 02/19/20 20:25 Neonat Indirect Bili Not Reportable 02/19/20 20:25 AST 33 U/L (14-36) 02/19/20 20:25 ALT 22 U/L (<35) 02/19/20 20:25 Alkaline Phosphatase 131 U/L (38-126) H 02/19/20 20:25 Total Protein 7.4 g/dL (6.3-8.2) 02/19/20 20:25 Albumin 4.0 g/dL (3.5-5.0) 02/19/20 20:25 TSH 0.49 uIU/mL (0.47-4.68) 02/20/20 06:52 Urine Color YELLOW 02/20/20 22:50 Urine Appearance SLIGHTLY-CLOUDY 02/20/20 22:50 Urine pH 5.0 (5.0-9.0) 02/20/20 22:50 Ur Specific [place] 1.027 02/20/20 22:50 Urine Protein 30 mg/dL (NEGATIVE) H 02/20/20 22:50 Urine Glucose (UA) NEGATIVE mg/dL (NEGATIVE) 02/20/20 22:50 Urine Ketones NEGATIVE mg/dL (NEGATIVE) 02/20/20 22:50 Urine Blood MODERATE (NEGATIVE) H 02/20/20 22:50 Urine Nitrite POSITIVE (NEGATIVE) H 02/20/20 22:50 Urine Bilirubin NEGATIVE (NEGATIVE) 02/20/20 22:50 Urine Urobilinogen NEGATIVE mg/dL (<2.0) 02/20/20 22:50 Ur Leukocyte Esterase LARGE (NEGATIVE) H 02/20/20 22:50 Urine WBC (Auto) 84 /HPF 02/20/20 22:50 Urine RBC (Auto) 31 /HPF 02/20/20 22:50 U Hyaline Cast (Auto) 3 /LPF 02/20/20 22:50 Urine Bacteria (Auto) 3+ /HPF 02/20/20 22:50 Squamous Epi Cells Auto <1 /HPF 02/20/20 22:50 Urine Mucus (Auto) MANY /LPF 02/20/20 22:50 Urine Ascorbic Acid NEGATIVE (NEGATIVE) 02/20/20 22:50 Influenza A (RT-PCR) NEGATIVE (NEGATIVE) 02/19/20 21:22 Influenza B (RT-PCR) NEGATIVE (NEGATIVE) 02/19/20 21:22 RSV (RT-PCR) NEGATIVE (NEGATIVE) 02/19/20 21:22 SARS-CoV-2 Rap RNA(RT-PCR) NEGATIVE (NEGATIVE) 02/19/20 21:22 Impressions: Chest X-Ray 02/19/20 20:16 IMPRESSION: No acute cardiopulmonary process. copyright 2011 [employer]- All Rights Reserved Venous Doppler Study 02/19/20 21:54 IMPRESSION: 1. No sonographic evidence for right lower extremity deep venous thrombosis. Hip/Pelvis X-Ray 02/21/20 00:00 IMPRESSION: Uncomplicated right-sided JULITA hardware with expected immediate postoperative findings. Plan Plan of Treatment: Follow PCP Follow-up with orthopedic surgery [facility] for a total of 28 days, there are 25 days left at discharge Time Spent: Greater than 30 Minutes Stroke Is this a Stroke Patient?: No Acute Heart Failure Is this a Heart Failure Patient?: No
== END 2020-02-24 14:34 | DRG 522 ==
LOC: ER 17:50 → EH 21:25 → 4S 02-20 01:28 → 2S 02-22 21:15
PROVIDERS: ADMIT Internal Medicine; ATTEND Internal Medicine
PROC: 0SRR0JA Replacement of Right Hip Joint, Femoral Surface with Synthetic Substitute, Uncemented, Open Approach (ICD-10-PCS; principal; 2020-02-21 08:00)
DX: S72.011A Unspecified intracapsular fracture of right femur, initial encounter for closed fracture (principal); W19.XXXA Unspecified fall, initial encounter; Z20.828 Contact with and (suspected) exposure to other viral communicable diseases; K21.9 Gastro-esophageal reflux disease without esophagitis; I10 Essential (primary) hypertension; M06.9 Rheumatoid arthritis, unspecified; E78.5 Hyperlipidemia, unspecified; D64.9 Anemia, unspecified; I25.10 Atherosclerotic heart disease of native coronary artery without angina pectoris; Z96.612 Presence of left artificial shoulder joint; Z96.642 Presence of left artificial hip joint; Z79.52 Long term (current) use of systemic steroids; Z88.6 Allergy status to analgesic agent; Z88.1 Allergy status to other antibiotic agents; Z79.899 Other long term (current) drug therapy; Z80.9 Family history of malignant neoplasm, unspecified
CPT/HCPCS: 01210; 36415; 51702; 71045; 80048; 80053; 81001; 82962; 83735; 84443; 85025; 85610; 85730; 87086; 88304; 88311; 93005; 93010; 93971; 96374; 96375; 99140; 99285; 0241U; C1776; C9803; J0690; J0696; J1100; J1650; J2250; J2270; J2370; J2405; J2704; J3010; J3370; J3480; J3490; J7060